=== PATIENT | female | born 1965 | race Caucasian/White ===

== ENCOUNTER → 2020-07-18 16:37 | Outpatient (BNVA) | payer MEDICARE, MEDICAID, SELFPAY | PROVIDERS: Family Provider Physician Assistant; PCP Physician Assistant; Visit Provider Nurse Practitioner Family | DX: M25.569 Pain in unspecified knee (principal) | CPT/HCPCS: 73562 ==

== ENCOUNTER 2020-08-03 09:30 | Outpatient (CLI) | payer MEDICARE, MEDICAID, SELFPAY ==
[2020-08-03 09:56] LABS: Basophils # 0.1 10^3/uL (0.0-0.1); Basophils % 1.7 %; Eosinophils # 0.2 10^3/uL (0.0-0.8); Eosinophils % 3.3 %; Hematocrit 45.2 % (37.0-47.0); Lymphocytes % 33.5 %; Mean Corpuscular HGB Conc 33.2 g/dL (30.0-36.0); Mean Corpuscular Hemoglobin 31.9 pg (28.0-34.0); Mean Corpuscular Volume 96.2 fL (81-99); Mean Platelet Volume 10.2 fL (7.4-10.4); Monocytes # 0.5 10^3/uL (0.2-0.9); Monocytes % 7.9 %; Neutrophils # 3.23 10^3/uL (1.8-7.7); Neutrophils % 53.3 %; Nucleated Red Blood Cells % 0 %; Platelet Count 255 10^3/cmm (130-400); Red Cell Distribution Width 12.7 % (12.1-15.1); White Blood Count 6.1 10^3/uL (4.0-10.0)
--- NOTE | 2020-08-03 10:07 | ECG_ITS ---
[facility] Test Date: 2020-08-03 Pat Name: Nano Olea Department: Room: Gender: Female Commercial Account Executive: BRAULIO REYESB: 1965 Requested By: Tal Herrmann Order Number: [id number] Mario MD: Laquita Perez M.D. Measurements Intervals [place] Rate: 57 P: 84 WV: 168 QRS: 19 QRSD: 94 T: 54 QT: 437 QTc: 427 Interpretive Statements SINUS BRADYCARDIA WITH SINUS ARRHYTHMIA POSSIBLE RIGHT VENTRICULAR CONDUCTION DELAY [RSR (QR) IN V1/V2] Diffuse nonspecific ST-T changes NONSPECIFIC T-WAVE ABNORMALITY No previous ECG available for comparison Electronically Signed On 08-03-2020 20:16:10 BODY BUMPER by Laquita Perez M.D. [email or web address]
[2020-08-03 10:12] LABS: Anion Gap 14.1 (5-19); Blood Urea Nitrogen 13 mg/dL (6-20); Calcium 9.7 mg/dL (8.5-10.5); Carbon Dioxide 25 mmol/L (22-29); Chloride 105 mmol/L (98-107); Glomerular Filtration Rate 74.7 mL/min (90-130); Glucose 144 mg/dL (65-115); Osmolality Calculated 293 mOsm/kg (285-295); Potassium 4.1 mmol/L (3.5-5.1); Sodium 140 mmol/L (136-145)
== END 2020-08-03 09:31 | disposition home or self-care (01) ==
LOC: LAB 09:38
PROVIDERS: PCP Physician Assistant; Visit Provider Specialist
DX: H90.6 Mixed conductive and sensorineural hearing loss, bilateral (principal)
CPT/HCPCS: 36415; 80048; 85025; 93005

== ENCOUNTER → 2020-08-13 11:53 | Outpatient (BNVA) | payer MEDICARE, MEDICAID, SELFPAY | PROVIDERS: PCP Physician Assistant; Visit Provider Specialist | DX: Z20.828 Contact with and (suspected) exposure to other viral communicable diseases (principal); Z11.59 Encounter for screening for other viral diseases | CPT/HCPCS: 87635 ==

== ENCOUNTER 2020-08-17 05:53 | Day surgery (SDC) | payer MEDICARE, MEDICAID, SELFPAY ==
[2020-08-16 14:01] VITALS: BMI 20.5
[2020-08-17] VITALS (7 sets, daily range): BP systolic 126–164; BP diastolic 54–86; PULSE 42–98; RESP 12–18; TEMP 36.1–36.6; O2SAT 93–100
[2020-08-17] MEDS: sodium chloride 0.9% 1,000 ML 30 ML IV (06:39)
--- NOTE | 2020-08-17 06:42 | ANES.PREANE2 ---
Pre-Anesthetic Assessment Pre-Anesthetic Assessment: Height/Weight: Height 1.63 m Weight 54.431 kg Temp Pulse Resp BP Pulse Ox 97.0 F L 42 L 18 138/54 98 08/17/20 06:17 08/17/20 06:17 08/17/20 06:17 08/17/20 06:17 08/17/20 06:17 Preop Diagnosis: hearing impairment Proposed Procedure: Operation Date: 08/17/20 07:00 Proposed Procedures p Baha Implants(Left) - Tal Magaña MD Familial anesthetic complications: None Was Beta Chapo taken within 24 hours: N/A Last intake: Intake Last Liquid Date 08/16/20 Last Liquid Time 20:30 Last Solid Date 08/16/20 Last Solid Time 21:30 Social: Social History: No alcohol and No tobacco Exam: Pre-Anes Outpt Exam: alert, oriented x 3, clear to auscultation bilaterally and regular rate & rhythm Airway: Cervical ROM: WNL MP: 2 Dentition: Full Pulmonary: Pulmonary: Asthma and COPD Comments: hx bronchitis CV/HEM: CV/HEM: HTN Comments: bradycardia Metabolic: Metabolic: Thyroid Anesthetic Plan: ASA status: 2 Anesthesia: General Risk of > 500 ml blood loss (7ml/kg in children): No Meds/Allergies Current Medications: Current Medications Generic Name Dose Route Start Last Admin Trade Name Freq PRN Reason Stop Dose Admin Sodium Chloride 1,000 mls @ 30 ml s/hr 08/17/20 06:15 08/17/20 06:39 Sodium Chloride 0.9% IV 08/18/20 06:14 30 mls/hr .Q24H JOHNNY Administration PFSH Anesthesia PFSH: Social History (Updated 07/18/20 @ 16:31 by Cindi Marte LPN) Smoking and tobacco status: current every day smoker Data Anesthesia Cardiac Studies: No Data to Display
--- NOTE | 2020-08-17 06:53 | W.PM.OPSUD ---
Surgery/Procedure H&P Update DATE OF PROCEDURE: August 17, 2020 DATE H&P PERFORMED: 07/30/20 H&P UPDATE INFORMATION: I have reviewed H&P completed within last 30 days, I have examined patient prior to procedure, No changes to prior documentation and H&P to be scanned into chart PREOP DIAGNOSIS: Mixed hearing loss, left ear PRIMARY INDICATION FOR PROCEDURE: Mixed hearing loss, left ear PLANNED PROCEDURE: Operation Date: 08/17/20 07:00 Proposed Procedures p Baha Implants(Left) - Tal Magaña MD
[2020-08-17] MEDS: clindamycin 600 MG/50 ML PREMIX 100 MG IV (07:05)
[2020-08-17] MEDS: neomycin-poly-bacitracin oint 28 gm 1 APPLIC TOPICAL (08:00)
--- NOTE | 2020-08-17 08:21 | PM.OP ---
Operative Report Date of procedure: August 17, 2020 Pre-op Diagnosis: Mixed hearing loss, left ear Post-op diagnosis: same Post-op Findings: Well healed post surgical changes of the left ear Procedure Done: Left Bone Anchored Hearing Aid Placement Implants: Left Bone Anchored Hearing Aid implant Specimens removed/disposition: None Pathology: none sent Surgeon: Tal Magaña Beam Dyer Operator: Nic Natarajan Anesthesia: General Estimated blood loss (mL): 5 IV fluids (mL): 500 Complications: None Findings: Well healed post surgical changes of the left ear Condition: stable Disposition: PACU Brief History: 54 yo wf with a h/o severe mixed hearing loss of the left ear who desires surgical therapy. Procedure: The patient was identified in the preoperative holding area and was taken to the operating room where she was placed on the operating table in the supine position. Anesthesia was obtained with general endotracheal anesthesia and the table was then turned 90 degrees to the patient's left. The patient was then prepped and draped in the usual sterile fashion. The implant site was marked out approximately 50 mm posterior to the left external auditory canal with a marking pen and surgical indicator. The skin depth was measured to be approximately 4-1/2 mm, so a 9 mm implant was selected. At this point the implant site was injected with local anesthesia and 10 minutes were allowed to pass. The punch biopsy tool was used to remove a circular piece of skin down to the mastoid cortex. Using the surgical microscope and the raspatorium, the periosteum was removed from the bone. Using the airplane pilot chief drill, a 3 mm hole was made into the mastoid cortex and this was then enlarged with a 3 mm widening drill. At this point the implant was placed with the drill placed on 40 N centimeters, and the implant was cinched down with a wrench. Once this was accomplished, the wound was covered with triple antibiotic ointment and a sterile dressing. The procedure was then terminated and control of the patient was returned to anesthesia where she underwent an uneventful reversal of anesthesia and extubation and was taken to the recovery room in stable condition. There were no operative or anesthetic complications.
--- NOTE | 2020-08-17 14:26 | ANE.PACU2 ---
Inpatient post-anesthesia follow up: Airway intact: Yes Vital signs: Temperature 97.4 F Pulse Rate 67 Respiratory Rate 18 Blood Pressure 126/72 Pulse Oximetry 93 Oxygen Delivery Me thod Room Air Oxygen Flow Rate Fraction of Inspir ed Oxygen Hydration adequate: Yes Nausea and vomiting: No Pain level: 3 Mental status: Baseline
== END 2020-08-17 09:27 | disposition home or self-care (01) ==
PROVIDERS: PCP Physician Assistant; Visit Provider Specialist
PROC: (CPT 69710; principal; 2020-08-17 07:00)
DX: H90.72 Mixed conductive and sensorineural hearing loss, unilateral, left ear, with unrestricted hearing on the contralateral side (principal); I10 Essential (primary) hypertension; J44.9 Chronic obstructive pulmonary disease, unspecified; F17.200 Nicotine dependence, unspecified, uncomplicated
CPT/HCPCS: 69710; 12345; J2405; J2704; J2710; J3010; J3490; J7030

== ENCOUNTER 2021-02-17 10:33 | Outpatient (CLI) | payer MEDICARE, MEDICAID, SELFPAY ==
--- NOTE | 2021-02-17 10:39 | MM_ITS ---
WS: [id number] BILATERAL DIGITAL SCREENING MAMMOGRAPHY WITH CAD CLINICAL INFORMATION: SCREENING HISTORY: Screening mammogram. No current complaints. COMPARISON: April 07, 2019 TECHNIQUE: Bilateral CC and MLO views. FINDINGS: The breasts are composed of heterogeneous fibroglandular density tissue, which can limit the detectio n of small underlying mass lesions. Punctate and dystrophic calcifications. No suspicious mass, asymm etry, calcifications, or architectural distortion. No evidence of malignancy. MM/[place] [id number] IMPRESSION: BI-RADS: 2-Benign FOLLOW UP: 1 Year Follow-up Recommend return to annual screening mammography.
== END 2021-02-17 10:34 | disposition home or self-care (01) ==
LOC: RADSHAW 10:38
PROVIDERS: PCP Physician Assistant; Visit Provider Physician Assistant
DX: Z12.31 Encounter for screening mammogram for malignant neoplasm of breast (principal)
CPT/HCPCS: 77067

== ENCOUNTER 2021-07-11 13:29 | Outpatient (CLI) | payer MEDICARE, MEDICAID, SELFPAY ==
--- NOTE | 2021-07-11 13:54 | CT_ITS ---
WS: [id number] LDCT LUNG CANCER SCREENING HISTORY: NICOTINE DEPENDENCE, CIGARETTES TECHNIQUE: Axial imaging performed from the apices to 1 cm below the costophrenic angles. Coronal and sagittal reformats are submitted with axial MIP series. All CT scans at [facility] use at least one of these dose optimization techniques: automated exposure control; mA and/or kV adjustment per patient size (includes targeted exams where dose is matched to clinical indication); or iterativ e reconstruction. DLP: 55.77 mGy.cm DIvol: 1.58 mGy COMPARISON: None available. Diagnostic quality: Satisfactory Lung Nodules: No nodule or mass or endobronchial lesions. Lungs: Multifocal prominent pulmonary reticulations along the anterior upper lobes bilaterally but gr eatest on the RIGHT. There is an additional very minimal area of groundglass attenuation in the poste rior LEFT lower lobe. Heart: Normal size with no pericardial effusion. Other findings: Small mediastinal and hilar lymph nodes. Small hiatal hernia. Thoracolumbar scoliosis . CT/CT lung screening [id number] IMPRESSION: LUNG-RADS: 1-Negative FOLLOW UP: 12 Month: Continue annual screening with LDCT OTHER FINDINGS (S MODIFIER): None.
== END 2021-07-11 13:30 | disposition home or self-care (01) ==
LOC: RAD 13:36
PROVIDERS: PCP Physician Assistant; Visit Provider Physician Assistant
DX: Z12.2 Encounter for screening for malignant neoplasm of respiratory organs (principal); F17.210 Nicotine dependence, cigarettes, uncomplicated
CPT/HCPCS: 71271

== ENCOUNTER → 2021-07-26 10:57 | Outpatient (BNVA) | payer MEDICARE, MEDICAID, SELFPAY | PROVIDERS: PCP Physician Assistant; Referring Provider Physician Assistant; Visit Provider Orthopaedic Surgery | DX: M25.521 Pain in right elbow (principal) | CPT/HCPCS: 73080 ==

== ENCOUNTER 2022-05-02 03:13 | Emergency (ER) | payer MEDICARE, MEDICAID, SELFPAY ==
[2022-05-02 03:14] VITALS: BMI 18.8
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
[2022-05-02 03:29] VITALS: RESP 22
[2022-05-02 03:29] LABS: Basophils # 0.1 10^3/uL (0.0-0.1); Basophils % 1.1 %; Eosinophils # 0.1 10^3/uL (0.0-0.8); Eosinophils % 1.2 %; Hematocrit 47.5 % (37.0-47.0); Hemoglobin 16.3 g/dL (11.5-15.3); Lymphocytes # 2.7 10^3/uL (0.8-4.8); Lymphocytes % 23.5 %; Mean Corpuscular HGB Conc 34.3 g/dL (30.0-36.0); Mean Corpuscular Hemoglobin 33.1 pg (28.0-34.0); Mean Corpuscular Volume 96.3 fl (81-99); Mean Platelet Volume 10.5 fL (7.4-10.4); Monocytes # 0.9 10^3/uL (0.2-0.9); Monocytes % 7.8 %; Neutrophils # 7.45 10^3/uL (1.8-7.7); Neutrophils % 66.1 %; Nucleated Red Blood Cells % 0 %; Platelet Count 206 10^3/cmm (130-400); Red Blood Count 4.93 10^6/uL (4.1-5.3); Red Cell Distribution Width 12.8 % (12.1-15.1); White Blood Count 11.3 10^3/uL (4.0-10.0)
[2022-05-02] MEDS: ondansetron 2 mg/ML SDV 2 mL 4 MG IVP (03:29)
[2022-05-02] MEDS: morphine 4 mg/mL SDV 1 mL IVP (03:29)
[2022-05-02 03:49] VITALS: BP 119/78; PULSE 75; RESP 22; O2SAT 94
[2022-05-02 03:52] LABS: Alanine Aminotransferase 12 U/L (0-33); Albumin Level 4.2 g/dL (3.5-5.2); Alcohol Level 185 mg/dL (0-10); Alkaline Phosphatase 82 IU/L (35-105); Anion Gap 18.1 (5-19); Aspartate Amino Transferase 22 U/L (0-32); Blood Urea Nitrogen 5 mg/dL (6-20); Calcium 9.4 mg/dL (8.5-10.5); Carbon Dioxide 25 mmol/L (22-29); Chloride 96 mmol/L (98-107); Globulin 2.5 g/dL (1.3-4.6); Glomerular Filtration Rate 86.6 mL/min (90-130); Glucose 165 mg/dL (65-115); Osmolality Calculated 283 mOsm/kg (285-295); Potassium 3.1 mmol/L (3.5-5.1); Sodium 136 mmol/L (136-145); Total Bilirubin 0.4 mg/dL (0.15-1.2); Total Protein 6.7 g/dL (6.6-8.7)
--- NOTE | 2022-05-02 04:24 | PC.NURSE ---
Wound to right elbow irrigated. Covered with Saline moistened gauze, wrapped in gauze dressing, then covered with coban. Pt tolerated well.
--- NOTE | 2022-05-02 04:30 | PC.NURSE ---
Contacted family member, Shon Kitchen, per pt request. He is on his way.
[2022-05-02 04:32] VITALS: BP 126/86; PULSE 65; RESP 20; O2SAT 98
--- NOTE | 2022-05-02 04:34 | PC.NURSE ---
Pt has hearing aide attached to left side of shirt. Placed hearing aid in a bag, while still attached to shirt, per patient request.
--- NOTE | 2022-05-02 04:38 | PC.NURSE ---
at bedside. 1 staple placed to right elbow. Wound redressed with gauze roll and coban.
== END 2022-05-02 05:01 | disposition home or self-care (01) ==
PROVIDERS: Emergency Provider Emergency Medicine; PCP Physician Assistant
DX: S09.8XXA Other specified injuries of head, initial encounter (principal); S51.011A Laceration without foreign body of right elbow, initial encounter; Y04.2XXA Assault by strike against or bumped into by another person, initial encounter
CPT/HCPCS: 12001; 70450; 70486; 71045; 72125; 73080; 80053; 80307; 85025; 96374; 96375; 99285; J2270; J2405

== ENCOUNTER 2022-07-21 14:32 | Outpatient (CLI) | payer MEDICARE, MEDICAID, SELFPAY ==
--- NOTE | 2022-07-21 14:41 | MM_ITS ---
WS: [id number] BILATERAL SCREENING DIGITAL TOMOSYNTHESIS MAMMOGRAM WITH CAD HISTORY: SCREENING COMPARISON: 04/07/2019, 10/23/2017, 02/17/2021 Bilateral CC and MLO views with tomosynthesis and synthetic mammography submitted. Computer aided det ection analyzed. Breast composition: The breasts are heterogeneously dense, which may obscure small masses. No suspici ous masses, microcalcifications or architectural distortion. Bilateral partially obscured asymmetries have remained stable over multiple years. There are also benign calcifications in each breast. MM/[place] [id number] IMPRESSION: BI-RADS: 2-Benign FOLLOW UP: 1 Year Follow-up
== END 2022-07-21 14:33 | disposition home or self-care (01) ==
LOC: RAD 14:33
PROVIDERS: PCP Physician Assistant; Visit Provider Physician Assistant
DX: Z12.31 Encounter for screening mammogram for malignant neoplasm of breast (principal)
CPT/HCPCS: 77063; 77067

== ENCOUNTER 2022-10-10 13:13 | Outpatient (CLI) | payer MEDICARE, MEDICAID, SELFPAY ==
--- NOTE | 2022-10-10 13:25 | CT_ITS ---
WS: [id number] LDCT LUNG CANCER SCREENING HISTORY: HX OF TOBACCO USE TECHNIQUE: Axial imaging performed from the apices to 1 cm below the costophrenic angles. Coronal and sagittal reformats are submitted with axial MIP series. All CT scans at [facility] use at least one of these dose optimization techniques: automated exposure control; mA and/or kV adjustment per patient size (includes targeted exams where dose is matched to clinical indication); or iterativ e reconstruction. DLP: 85.07 mGy.cm DIvol: Mean CTDIvol: 1.60 (mGy) COMPARISON: 07/11/2021 Diagnostic quality: Satisfactory Lung Nodules: No pulmonary nodules or endobronchial lesions. Lungs: Hyperexpanded lungs with changes of paraseptal and centrilobular emphysema. There is very mild interstitial thickening along the anterior lungs. Heart: Normal size heart. No pericardial effusion. Scattered coronary artery calcifications. Other findings: Mild atherosclerosis aorta. Pulmonary artery is enlarged. Small hiatal hernia. Mild b ilateral adrenal hyperplasia. Thoracic curvature. CT/CT lung screening [id number] IMPRESSION: LUNG-RADS: 1-Negative FOLLOW UP: 12 Month: Continue annual screening with LDCT OTHER FINDINGS (S MODIFIER): None.
== END 2022-10-10 13:14 | disposition home or self-care (01) ==
LOC: RAD 13:13
PROVIDERS: PCP Physician Assistant; Visit Provider Physician Assistant
DX: Z12.2 Encounter for screening for malignant neoplasm of respiratory organs (principal); Z87.891 Personal history of nicotine dependence
CPT/HCPCS: 71271

== ENCOUNTER → 2023-06-14 10:00 | Outpatient (BNVA) | payer MEDICARE, MEDICAID, SELFPAY | PROVIDERS: PCP Physician Assistant; Visit Provider Podiatrist Foot & Ankle Surgery | DX: M19.072 Primary osteoarthritis, left ankle and foot; M19.071 Primary osteoarthritis, right ankle and foot; M20.41 Other hammer toe(s) (acquired), right foot; M20.42 Other hammer toe(s) (acquired), left foot; B35.1 Tinea unguium | CPT/HCPCS: 73630; 99203 ==

== ENCOUNTER → 2023-08-31 09:46 | Outpatient (BNVA) | payer MEDICARE, MEDICAID, SELFPAY | PROVIDERS: PCP Physician Assistant; Visit Provider Student in an Organized Health Care Education/Training Program | DX: M65.332 Trigger finger, left middle finger (principal) | CPT/HCPCS: 99204 ==

== ENCOUNTER 2023-10-10 07:26 | Day surgery (SDC) | payer MEDICARE, MEDICAID, SELFPAY ==
[2023-10-10] VITALS (8 sets, daily range): BP systolic 114–148; BP diastolic 66–85; PULSE 61–80; RESP 15–18; TEMP 36.1–36.6; O2SAT 94–97; BMI 20.5
[2023-10-10] MEDS: acetaminophen 1,000 MG/100 ML PIGGYBACK 400 MG IV (07:56)
[2023-10-10] MEDS: scopolamine 1.5 Patch 1 PATCH TRANSDERMA (07:56)
[2023-10-10] MEDS: ketorolac 30 mg/mL INJ IVP (07:56)
[2023-10-10] MEDS: sodium chloride 0.9% 1,000 ML 30 ML IV (08:00)
--- NOTE | 2023-10-10 08:15 | P.ANESASSM_ITS ---
Pre-Anesthetic Assessment Height/Weight: Height 1.63 m Weight 54.431 kg Temp Pulse Resp BP Pulse Ox 97.4 F L 61 18 148/85 97 10/10/23 08:02 10/10/23 08:02 10/10/23 08:02 10/10/23 08:02 10/10/23 08:02 Operation Date: 10/10/23 09:00 Proposed Procedures p Left Middle Trigger Finger Release(Left) - Adan Gaston, DO Was Beta Chapo taken within 24 hours: N/A Was Clonidine taken within 24 hours: N/A Social Tobacco 1 pack(s) per day Smoked today Exam alert and oriented x 3 Airway Mallampati: Class II Dentition: false History/ROS No significant history except as noted and No significant complaints Pulmonary Chronic Obstructive Pulmonary Disease CV/HEM Hypertension GI Gastroesophageal Reflux Disease Metabolic Thyroid Disease Neuropsych Depression 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 100 mcg-umeclid See Rx Instructions .Route .COMPLEX 08/16/20 10/09/23 10/08/23 History 62.5 mcg-vilant 25 mcg inhalat.powder (Trelegy Ellipta) montelukast 10 mg tablet 10 mg PO DAILY 08/16/20 10/09/23 10/09/23 History cyclobenzaprine 10 mg tablet 10 mg PO TID 07/26/21 10/10/23 10/09/23 History diclofenac sodium 75 mg 75 mg PO BID 07/26/21 10/10/23 10/09/23 History tablet,delayed release escitalopram oxalate 10 mg tablet 10 mg PO DAILY 07/26/21 10/09/23 10/09/23 History (Lexapro) omeprazole 40 mg capsule,delayed 40 mg PO DAILY 07/26/21 10/09/23 10/09/23 History release oxybutynin chloride 5 mg 5 mg PO 1XD 10/09/23 10/09/23 10/09/23 History tablet,extended release 24 hr Allergies Allergy/AdvReac Type Severity Reaction Status Date / Time clarithromycin [From Biaxin] Allergy RASH Verified 10/10/23 07:40 clonazepam [From Klonopin] Allergy RASH Verified 10/10/23 07:40 Penicillins Allergy RASH Verified 10/10/23 07:40 [facility] Anesthesia Medical History Radioulnar synostosis Social History Smoking and tobacco/nicotine status: never used tobacco/nicotine Data Anesthesia 10/10/23 07:53 Cardiac Studies: 2 No Data to Display
[2023-10-10 08:23] LABS: Anion Gap 15.2 (5-19); Blood Urea Nitrogen 7 mg/dL (6-20); Calcium 10.3 mg/dL (8.5-10.5); Carbon Dioxide 26 mmol/L (22-29); Chloride 100 mmol/L (98-107); Glomerular Filtration Rate 64.5 mL/min (90-130); Glucose 161 mg/dL (65-115); Osmolality Calculated 287 mOsm/kg (285-295); Potassium 3.2 mmol/L (3.5-5.1); Sodium 138 mmol/L (136-145)
--- NOTE | 2023-10-10 10:30 | W.PM.OPSFHP ---
Same Day Surgery H&P Indication for Procedure/HPI DATE OF PROCEDURE: October 10, 2023 CHIEF COMPLAINT/INDICATIONFOR SURGICAL PROCEDURE: Left middle finger trigger PREOP DIAGNOSIS: Left middle finger trigger PLANNED PROCEDURE: Operation Date: 10/10/23 09:00 Proposed Procedures p Left Middle Trigger Finger Release(Left) - Adan Feldman DO Medications/Allergies* Home Medications Medication Instructions Recorded Confirmed Type levothyroxine 25 mcg capsule 25 mcg PO DAILY 07/18/20 10/09/23 History lisinopril 30 mg tablet 30 mg PO DAILY 07/18/20 10/09/23 History fluticasone fur. 100 mcg-umeclid See Rx Instructions .Route .COMPLEX 08/16/20 10/09/23 History 62.5 mcg-vilant 25 mcg inhalat.powder (Trelegy Ellipta) montelukast 10 mg tablet 10 mg PO DAILY 08/16/20 10/09/23 History cyclobenzaprine 10 mg tablet 10 mg PO TID 07/26/21 10/10/23 History diclofenac sodium 75 mg 75 mg PO BID 07/26/21 10/10/23 History tablet,delayed release escitalopram oxalate 10 mg tablet 10 mg PO DAILY 07/26/21 10/09/23 History (Lexapro) omeprazole 40 mg capsule,delayed 40 mg PO DAILY 07/26/21 10/09/23 History release oxybutynin chloride 5 mg 5 mg PO 1XD 10/09/23 10/09/23 History tablet,extended release 24 hr Allergies/Adverse Reactions Allergy/AdvReac Type Severity Reaction Status Date / Time clarithromycin [From Biaxin] Allergy RASH Verified 10/10/23 07:40 clonazepam [From Klonopin] Allergy RASH Verified 10/10/23 07:40 Penicillins Allergy RASH Verified 10/10/23 07:40 Pertinent History/Comorbid Conditions* Medical History (Updated 09/20/23 @ 14:04 by Adan Feldman DO) Radioulnar synostosis Social History Smoking and tobacco/nicotine status: never used tobacco/nicotine Pertinent Exam Findings alert, oriented x 3, operative site marked and procedure specific exam findings left hand There is full range of motion of the wrist with full flexion, extension, supination and pronation. There is full range of motion of the MCPs 0-110 and PIP joints 0-110 as well. The flexor digitorum profundus and sublimis are intact to each digit. A negative median nerve compression test, and negative Finklestein's test are demonstrated. There is tenderness directly over the A1 corey of the left middle finger. There is palpable swelling and nodule noted with flexion and extension of the digit over the A1 corey. Mechanical triggering and locking down noted this to be mechanically unlock. There is no thenar atrophy and no webspace contracture. Recommendations Surgery/Procedure today Other Plans: Plan to proceed with a left middle finger trigger release Coding Level of Care Code Acute Code for Chg Fwd
[2023-10-10] MEDS: ceFAZolin 2,000 MG in sodium chloride 0.9% (plus) 50 ML 100 MG IV (10:45)
[2023-10-10] MEDS: ROPivacaine 0.5% SDV 30 mL 25 MG INJECTION (11:10)
[2023-10-10] MEDS: BUPivacaine 0.5% INJ 30 mL 5 ML INJECTION (11:10)
--- NOTE | 2023-10-10 11:14 | P.BOP_ITS ---
Date of Procedure: 10/10/2023 Surgeon: Adan Feldman DO Trail Construction Worker(s): [Shilo Feldman PA-C] Procedure(s) performed: [Left middle finger trigger release] Findings of the procedure(s): [Patient found to have left middle finger trigger underwent release without any complications or issues procedure went as planned.] Estimated blood loss: 1 mL Specimen(s) removed: None Post-operative diagnosis: Left middle finger trigger
--- NOTE | 2023-10-10 11:17 | PM.OP ---
Operative Report Date of procedure: October 10, 2023 Surgeon: Adan Feldman DO [facility] Director: Shilo Feldman PA-C: PA was necessary for assistance in this case with hand positioning to execute the procedure, retraction and protection of neurovascular structures as well as to assist with wound closure and dressing application. Procedure: Preoperative diagnosis: Left middle finger trigger post-op diagnosis: Same Procedure done: left?middle?finger?trigger?release Surgeon: Adan Feldman DO Estimated blood loss: 1cc Tourniquet time 6mins Complications: None Condition: stable Disposition: same day Brief History: Patient's been seen and worked up in the outpatient setting and findings consistent with preoperative diagnosis of left?middle?finger?trigger.? Patient has tried conservative treatment, continues to have mechanical locking and catching.? Severe pain as well.? We talked about treatment options nonoperative versus operative intervention.? ?Patient understands the risk benefits complication alternatives of surgical nonsurgical treatment options.? Understanding his risks with surgery he elects proceed with surgical intervention.? Consent obtained in the office.? Here today to proceed with surgical intervention.? All questions answered. Procedure: Patient was seen and evaluated in the preoperative holding area.? Consent was reviewed and signed with patient.? Seen evaluated by Anesthesia Department.? Once cleared for surgery was brought back to the operative suite.? Placed in supine position on the OR table all bony prominences well-padded patient properly secured to the bed.? Patient's left arm was then placed to the armboard.? A nonsterile tourniquet applied to the left upper arm.? Patient's left upper extremity was then prepped and draped in standard orthopedic fashion.? Final timeout performed.? Patient received appropriate preoperative antibiotics. Esmarch tourniquet was used exsanguinate the left upper extremity tourniquet insufflated to 250 mmHg. Under sterile aseptic technique local digital block was performed to the left?middle?finger.? Once appropriately anesthetized a standard oblique incision was made centering over the A1 corey following patient's flexor crease.? Sharp scalpel incision was made only through skin and then switched to Littler dissection scissors and spread longitudinally directly over the flexor tendon sheath.? I then mobilized both radially and ulnarly and Kasdan retractors were used and placed by my inventory assistant to protect neurovascular bundle.? Next I visualized the A1 corey and this was incised with a scalpel.? I then switched to dissection scissors and released the A1 corey both proximally as well as distally to its entirety.? Significant tendon sheath fluid was noted consistent with inflammation.? Mild fraying of the flexor tendons noted but no tear.? At this point I utilized a rag nail and pulled the tendons FDS and FDP out of the incision and no?triggering was noted.? I then had anesthesia wake up the patient and patient was able to actively flex and extend with no?triggering.? This point thorough irrigation was performed.? Tourniquet deflated hemostasis satisfactory with bipolar.? I then subsequently closed the incision with interrupted nylon suture.? Xeroform 4 x 4's, Kerlix and an Tommie wrap was applied for a bulky soft dressing.? Patient was then subsequently awakened from anesthesia and taken to PACU in stable condition tolerated procedure without issues. Disposition: Patient taken back in stable condition recovering well.? Patient will receive appropriate discharge instruction as well as pain medication postoperatively.? Patient to follow-up with me in the office in 2 weeks for repeat evaluation and incision check.? Patient understands that any questions or concerns and contact the office.? All questions answered.
--- NOTE | 2023-10-10 11:23 | PM.PACU ---
PACU note Narrative: Patient is a 57-year-old female just underwent a left middle trigger finger release. Patient transferred to PACU in stable condition. Pain is well controlled. Dressing on hand is dry and in place. Patient's fingers are warm and well-perfused. Patient can wiggle fingers. normal cap refill under 2 seconds. Patient has normal elbow range of motion. Unable to assess sensation due to residual localized anesthetic. Exam: awake Disposition: discharged
--- NOTE | 2023-10-11 07:23 | ANE.PACU2 ---
Inpatient post-anesthesia follow up: Airway intact: Yes Vital signs: Temperature 97.0 F Pulse Rate 69 Respiratory Rate 18 Blood Pressure 114/72 Pulse Oximetry 95 Oxygen Delivery Me thod Room Air Oxygen Flow Rate Fraction of Inspir ed Oxygen Hydration adequate: Yes Nausea and vomiting: No Pain level: 2 Mental status: Baseline
== END 2023-10-10 12:20 | disposition home or self-care (01) ==
PROVIDERS: Anesthesiology; PCP Physician Assistant; Visit Provider Student in an Organized Health Care Education/Training Program
PROC: (CPT 26055; principal; 2023-10-10 09:00)
DX: M65.332 Trigger finger, left middle finger (principal); J44.9 Chronic obstructive pulmonary disease, unspecified; I10 Essential (primary) hypertension; K21.9 Gastro-esophageal reflux disease without esophagitis; F32.A Depression, unspecified
CPT/HCPCS: 26055; 36415; 80048; J0131; J0690; J1885; J2250; J2704; J2795; J3010; J3490; J7030

== ENCOUNTER → 2023-10-23 12:50 | Outpatient (BNVA) | payer MEDICARE, MEDICAID, SELFPAY | PROVIDERS: PCP Physician Assistant; Visit Provider Physician Assistant | DX: Z98.890 Other specified postprocedural states (principal) | CPT/HCPCS: 99024 ==

== ENCOUNTER → 2023-12-27 09:51 | Outpatient (BNVA) | payer MEDICARE, MEDICAID, SELFPAY | PROVIDERS: PCP Physician Assistant; Visit Provider Otolaryngology | DX: H65.493 Other chronic nonsuppurative otitis media, bilateral (principal); H74.8X1 Other specified disorders of right middle ear and mastoid; H69.93 Unspecified Eustachian tube disorder, bilateral; H90.0 Conductive hearing loss, bilateral | CPT/HCPCS: 99204 ==

== ENCOUNTER → 2024-01-01 10:04 | Outpatient (BNVA) | payer MEDICARE, MEDICAID, SELFPAY | PROVIDERS: PCP Physician Assistant; Referring Provider Physician Assistant; Visit Provider Internal Medicine | DX: R00.1 Bradycardia, unspecified (principal) | CPT/HCPCS: 93225 ==

== ENCOUNTER → 2024-01-24 09:26 | Outpatient (BNVA) | payer MEDICARE, MEDICAID, SELFPAY | PROVIDERS: PCP Physician Assistant; Visit Provider Otolaryngology | DX: H66.93 Otitis media, unspecified, bilateral (principal); H90.6 Mixed conductive and sensorineural hearing loss, bilateral; H69.93 Unspecified Eustachian tube disorder, bilateral; H74.8X3 Other specified disorders of middle ear and mastoid, bilateral | CPT/HCPCS: 99213; 99214 ==

== ENCOUNTER 2024-03-22 13:47 | Inpatient (IN) | payer MEDICARE, MEDICAID, SELFPAY ==
[2024-03-22] VITALS (37 sets, daily range): BP systolic 86–171; BP diastolic 55–97; PULSE 42–88; RESP 10–29; TEMP 36.5–37.2; O2SAT 90–100
--- NOTE | 2024-03-22 13:57 | ECG_ITS ---
[facility] Test Date: 2024-03-22 Pat Name: Nano Olea Department: Room: Gender: Female Sas Programmer Remote: : 1965 Requested By: King Nunn Order Number: [id number] Mario MD: Norris Archuleta M.D. Measurements Intervals [place] Rate: 47 P: 81 MA: 163 QRS: 56 QRSD: 100 T: 256 QT: 477 QTc: 423 Interpretive Statements SINUS BRADYCARDIA POSSIBLE RIGHT VENTRICULAR CONDUCTION DELAY [RSR (QR) IN V1/V2] ST DEVIATION AND MODERATE T-WAVE ABNORMALITY, CONSIDER ANTEROLATERAL ISCHEMIA [-0.1+ mV T-WAVE IN V3-V6] ST DEVIATION AND MODERATE T-WAVE ABNORMALITY, CONSIDER INFERIOR ISCHEMIA [-0.1+ mV T-WAVE IN II/aVF] INTERPRETATION BASED ON A DEFAULT AGE OF 40 YEARS Compared to ECG 08/03/2020 10:00:12 Possible ischemia now present Sinus arrhythmia no longer present ST (T wave) deviation no longer present T-wave abnormality still present Electronically Signed On 03-23-2024 9:52:40 CDT by Norris Archuleta M.D. [id number] [email or web address]
--- NOTE | 2024-03-22 14:01 | XRR_ITS ---
PROCEDURE INFORMATION: Exam: XR Chest Exam date and time: 03/22/2024 2:12 PM Age: 58 years old Clinical indication: Chest pressure; Patient HX: Arrives via EMS from home- C/O chest pain that woke her up. Associated SOB. Pain was gone on EMS arrival. Given 324mg asa. Iv and lab drawal. Reports nausea/ vomiting- just can't keep anything down. Unsure if she is still taking her prilosec. TECHNIQUE: Imaging protocol: Radiologic exam of the chest. Views: 1 view. COMPARISON: CR XR chest 2V* [id number] 10/31/2023 12:05 PM FINDINGS: Lungs: New small area of atelectasis and/or pneumonitis in the medial right mid lung. Unchanged bilateral bullous emphysema with increased hyperinflation of the lungs. Otherwise, unremarkable. Pleural spaces: Unremarkable. No pleural effusion. No pneumothorax. Heart/Mediastinum: Unremarkable. No cardiomegaly. Bones/joints: Unchanged mild scoliosis and mild spondylosis Otherwise, unremarkable. XR/XR chest 1V portable [id number] IMPRESSION: 1. New small area of pneumonitis and/or atelectasis in the medial right midlung. 2. Unchanged bilateral bullous emphysema with increased hyperinflation of the lungs.
[2024-03-22 14:10] LABS: Basophils # 0.1 10^3/uL (0.0-0.1); Basophils % 1.4 %; Eosinophils # 0.1 10^3/uL (0.0-0.8); Eosinophils % 1.4 %; Hematocrit 48.7 % (36-47); Lymphocytes # 1.3 10^3/uL (0.8-4.8); Lymphocytes % 18.6 %; Mean Corpuscular HGB Conc 34.5 g/dL (30-55); Mean Corpuscular Hemoglobin 32.2 pg (27-33); Mean Corpuscular Volume 93.3 fl (85-98); Mean Platelet Volume 10.5 fL (7.4-10.4); Monocytes % 14.2 %; Neutrophils # 4.42 10^3/uL (1.8-7.7); Neutrophils % 64.1 %; Nucleated Red Blood Cells % 0 %; Platelet Count 253 10^3/cmm (157-399); Red Blood Count 5.22 10^6/uL (3.85-5.65); Red Cell Distribution Width 12.7 % (12.1-15.1)
[2024-03-22 14:19] LABS: INR 0.99 (0.8-1.2)
[2024-03-22 14:23] LABS: Troponin(5th) Baseline 8 ng/L (0-10)
[2024-03-22 14:32] LABS: Alanine Aminotransferase 8 U/L (0-33); Albumin Level 4.1 g/dL (3.5-5.2); Alkaline Phosphatase 99 U/L (35-105); Anion Gap 18.2 (5-19); Aspartate Amino Transferase 16 U/L (0-32); Blood Urea Nitrogen 15 mg/dL (6-20); Calcium 10.1 mg/dL (8.5-10.5); Carbon Dioxide 24 mmol/L (22-29); Chloride 97 mmol/L (98-107); Creatinine Clr Calc Pharmacy 58.7205; Globulin 4.2 g/dL (1.3-4.6); Glomerular Filtration Rate 64.3 mL/min (90-130); Glucose 97 mg/dL (65-115); NT Pro B Type Natriuretic Pept 194 pg/mL (0-125); Osmolality Calculated 283 mOsm/kg (285-295); Potassium 3.2 mmol/L (3.5-5.1); Sodium 136 mmol/L (136-145); Total Bilirubin 0.4 mg/dL (0.15-1.2); Total Protein 8.3 g/dL (6.6-8.7)
[2024-03-22 14:35] LABS: Thyroid Stimulating Hormone 8.52 uIU/mL (0.27-4.20)
[2024-03-22] MEDS: atropine 0.1 mg/mL Syr 10 mL 0.5 MG IVP ×2 (14:48→16:47)
[2024-03-22] MEDS: ondansetron 2 mg/ML SDV 2 mL 4 MG IVP (14:49)
[2024-03-22] MEDS: sodium chloride 0.9% 500 ML 999 ML IV (14:49)
[2024-03-22 14:53] LABS: Procalcitonin 0.08 ng/mL (0-0.5)
--- NOTE | 2024-03-22 16:01 | ECG_ITS ---
[facility] Test Date: 2024-03-22 Pat Name: Nano Olea Department: Room: Gender: Female Induction Coordination Power Engineer: : 1965 Requested By: Danny Kulkarni Order Number: [id number] Mario MD: Norris Archuleta M.D. Measurements Intervals [place] Rate: 60 P: 0 [place]: 0 QRS: 52 QRSD: 102 T: 217 QT: 468 QTc: 470 Interpretive Statements SUPRAVENTRICULAR RHYTHM POSSIBLE RIGHT VENTRICULAR CONDUCTION DELAY [RSR (QR) IN V1/V2] ST DEVIATION AND MODERATE T-WAVE ABNORMALITY, CONSIDER ANTEROLATERAL ISCHEMIA [-0.1+ mV T-WAVE IN V3-V6] ST DEVIATION AND MODERATE T-WAVE ABNORMALITY, CONSIDER INFERIOR ISCHEMIA [-0.1+ mV T-WAVE IN II/aVF] Compared to ECG 03/22/2024 13:51:25 Supraventricular rhythm now present Sinus bradycardia no longer present T-wave abnormality still present Possible ischemia still present Electronically Signed On 03-23-2024 9:57:10 CDT by Norris Archuleta M.D. [id number]
--- NOTE | 2024-03-22 16:31 | ED_ITS ---
HPI - Chest Pain 2 General: Chief Complaint: Chest Pain Stated Complaint: CHEST PAIN Time Seen by Provider: 03/22/24 13:59 History of Present Illness: Patient presents with feeling ill over the past few days. Been having episodes of diaphoresis and nausea. Unable to keep food and drink down per patient. She reports less vomiting and more just producing lots of spit. Patient denies any fevers, but does reports some chest pain. Chest pain is woke her up from sleep today and caused her to come to the hospital. During her visit here she had episode where she started having chest pain and diaphoresis as well which coincided with her heart rate in the 30s. PFSH ED 2 PFSH: Medical History (Updated 03/22/24 @ 19:30 by Norris Archuleta MD) Cochlear implant in place Essential hypertension History of COPD Hx of gastroesophageal reflux (GERD) History of high cholesterol Normal colonoscopy Hypertension Hypothyroidism Depression Tinea corporis Hx of cleft palate Radioulnar synostosis Surgical History (Updated 01/24/24 @ 10:02 by Keshav Gregorio MD) Hx of angioplasty Hx of tonsillectomy Hx of rhinoplasty Hx of mastoidectomy Social History Smoking and tobacco/nicotine status: current every day tobacco/nicotine user cigarettes Packs smoked per day: 1.5 Years cigarettes smoked: 40 Second hand smoke exposure: No Alcohol intake: current Alcohol intake frequency: holidays/special occasions only Alcohol type: beer Course 2 Consultations: Consultation #1: Dr. Archuleta agrees to consult for symptomatic bradycardia Time: 16:55 Consultation #2: Dr. Serna agrees to admission Time: 17:47 Vital Signs: Vital signs: Vital Signs Temperature 97.7 F 03/22/24 13:50 Pulse Rate 55 L 03/22/24 15:35 Respiratory Rate 15 03/22/24 15:35 Blood Pressure 123/89 03/22/24 15:35 Pulse Oximetry 94 03/22/24 15:35 Oxygen Delivery Me thod Room Air 03/22/24 13:50 MDM - Chest Pain Medical Decision Making Patient with reports of not tolerating p.o. this past week as well as spitting up a lot of stuff and coughing. Possibly some more nausea vomiting. Comes in with complaint of chest pain episode woke her from sleep. She been having diaphoresis to the point of soaking sugars. During the course of her workup she had a heart rate dipping to the 30s and she was resting in the 40s. Went into the 30s she became diaphoretic nauseous and complaining of chest pain. CT scan shows some groundglass infiltrate in the right upper lobe/right midlung. Suspect infectious process however procalcitonin is negative. History panel is pending. Given the symptomatic bradycardia patient was given atropine x 2 and is now on dobutamine drip as isoproterenol is not available. Spoke with Dr. Archuleta cardiology as well as Dr. Serna. Patient will be admitted to the ICU. Differential Diagnosis Likely acute myocardial infarction Medical Records I reviewed the patient's medical records. Lab Data I reviewed the patient's lab results. 03/22/24 13:53 03/22/24 13:53 Radiology Impressions Chest X-Ray 03/22/24 14:01 IMPRESSION: 1. New small area of pneumonitis and/or atelectasis in the medial right midlung. 2. Unchanged bilateral bullous emphysema with increased hyperinflation of the lungs. Chest/Abdomen/Pelvis CT 03/22/24 16:32 IMPRESSION: 1. Interval appearance of the localized consolidation contiguous coarsened reticular and ground-glass opacities in the medial right upper lobe most likely representing infectious/inflammatory pathology in absence of other significant medical history. 2. Solitary mildly enlarged right hilar lymph node. IMPRESSION: No acute abdominopelvic pathology. Minor findings noted above including small hiatal hernia with mural thickening distal thoracic esophagus. Laboratory Results WBC 6.90 10^3/uL (3.29-11.43) 03/22/24 13:53 RBC 5.22 10^6/uL (3.85-5.65) 03/22/24 13:53 Hgb 16.80 g/dL (11.27-16.99) 03/22/24 13:53 Hct 48.7 % (36-47) H 03/22/24 13:53 MCV 93.3 fl (85-98) 03/22/24 13:53 MCH 32.2 pg (27-33) 03/22/24 13:53 MCHC 34.5 g/dL (30-55) 03/22/24 13:53 RDW 12.7 % (12.1-15.1) 03/22/24 13:53 Plt Count 253 10^3/cmm (157-399) 03/22/24 13:53 MPV 10.5 fL (7.4-10.4) H 03/22/24 13:53 Neut % (Auto) 64.1 % 03/22/24 13:53 Lymph % (Auto) 18.6 % 03/22/24 13:53 Scurry % (Auto) 14.2 % 03/22/24 13:53 Eos % (Auto) 1.4 % 03/22/24 13:53 Baso % (Auto) 1.4 % 03/22/24 13:53 Neut # (Auto) 4.42 10^3/uL (1.8-7.7) 03/22/24 13:53 Lymph # (Auto) 1.3 10^3/uL (0.8-4.8) 03/22/24 13:53 Scurry # (Auto) 1.0 10^3/uL (0.2-0.9) H 03/22/24 13:53 Eos # (Auto) 0.1 10^3/uL (0.0-0.8) 03/22/24 13:53 Baso # (Auto) 0.1 10^3/uL (0.0-0.1) 03/22/24 13:53 Nucleated RBC % (auto) 0 % 03/22/24 13:53 Nucleated RBCs # 0.0 /100WBC 03/22/24 13:53 PT 13.40 SECONDS (12.1-14.9) 03/22/24 13:53 INR 0.99 (0.8-1.2) 03/22/24 13:53 APTT 40.0 SECONDS (23.9-36.7) H 03/22/24 13:53 Sodium 136 mmol/L (136-145) 03/22/24 13:53 Potassium 3.2 mmol/L (3.5-5.1) L 03/22/24 13:53 Chloride 97 mmol/L (98-107) L 03/22/24 13:53 Carbon Dioxide 24 mmol/L (22-29) 03/22/24 13:53 Anion Gap 18.2 (5-19) 03/22/24 13:53 BUN 15 mg/dL (6-20) 03/22/24 13:53 Creatinine 0.9 mg/dL (0.5-0.9) 03/22/24 13:53 GFR Calculation 64.3 mL/min (90-130) L 03/22/24 13:53 Glucose 97 mg/dL (65-115) 03/22/24 13:53 Calculated Osmolality 283 mOsm/kg (285-295) L 03/22/24 13:53 Calcium 10.1 mg/dL (8.5-10.5) 03/22/24 13:53 Total Bilirubin 0.4 mg/dL (0.15-1.2) 03/22/24 13:53 AST 16 U/L (0-32) 03/22/24 13:53 ALT 8 U/L (0-33) 03/22/24 13:53 Alkaline Phosphatase 99 U/L (35-105) 03/22/24 13:53 Troponin T Baseline 8 ng/L (0-10) 03/22/24 13:53 Troponin T 120 Minute 8.28 ng/L (0-10) 03/22/24 16:13 Delta Troponin T 0.28 ABS# (0-10) 03/22/24 16:13 NT-Pro-B Natriuret Pep 194 pg/mL (0-125) H 03/22/24 13:53 Total Protein 8.3 g/dL (6.6-8.7) 03/22/24 13:53 Albumin 4.1 g/dL (3.5-5.2) 03/22/24 13:53 Globulin 4.2 g/dL (1.3-4.6) 03/22/24 13:53 Procalcitonin 0.08 ng/mL (0-0.5) 03/22/24 13:53 TSH 8.52 uIU/mL (0.27-4.20) H 03/22/24 13:53 All radiology interpretation(s) finalized by discharge ED provider radiology interpretation(s): CT chest abd pelvis just shows right upper lobe pneumonia. Critical Care Time 2 Critical Care Time: Critical Care Time: Yes Total Critical Care Time: 55 Attestation: Code care time includes time at the bedside, placing orders, charting, speaking with multiple other physicians as well as updating patient and coordinating care with nursing staff. Discharge Plan Discharge Patient Disposition: Admitted As Inpatient Admit Provider: Kylie Serna Clinical Impression: Symptomatic bradycardia, Angina pectoris, unstable, Nausea & vomiting, Hypothyroidism Condition: Stable Prescriptions: No Action lisinopril 30 mg tablet 30 mg PO DAILY levothyroxine 25 mcg capsule 25 mcg PO DAILY cyclobenzaprine 10 mg tablet 10 mg PO TID omeprazole 40 mg capsule,delayed release(DR/EC) 40 mg PO DAILY escitalopram oxalate [Lexapro] 10 mg tablet 10 mg PO DAILY diclofenac sodium 75 mg tablet,delayed release (DR/EC) 75 mg PO BID folic acid 1 mg tablet 1 mg PO DAILY Rx Instructions: 1 tab by mouth daily omeprazole 20 mg capsule,delayed release(DR/EC) 20 mg PO DAILY Rx Instructions: 1 capsule by mouth daily Trelegy Ellipta 100-62.5-25 mcg blister with device See Rx Instructions .ROUTE .COMPLEX Rx Instructions: use it as needed montelukast 10 mg tablet 10 mg PO DAILY oxybutynin chloride 5 mg tablet extended release 24hr 5 mg PO 1XD tramadol 50 mg tablet 50 mg PO Q6H PRN (Reason: pain) Qty: 20 0RF Coding Level of Care Code ED Tobacco Feeder Catcher for Umair Mathis
--- NOTE | 2024-03-22 16:32 | CTR_ITS ---
PROCEDURE INFORMATION: Exam: CT Chest With Contrast; Diagnostic Exam date and time: 03/22/2024 4:50 PM Age: 58 years old Clinical indication: Abdominal pain; Generalized; Chest pressure; Additional info: Diaphoresis, n/v, TECHNIQUE: Imaging protocol: Diagnostic computed tomography of the chest with contrast. Radiation optimization: All CT scans at this facility use at least one of these dose optimization techniques: automated exposure control; mA and/or kV adjustment per patient size (includes targeted exams where dose is matched to clinical indication); or iterative reconstruction. Contrast material: OMNI 350; Contrast volume: 80 ml; Contrast route: INTRAVENOUS (IV); COMPARISON: CT lung screening [id number] 10/10/2022 1:32 PM RADIATION DOSE METRICS: Total DLP (mGy-cm): 462.97 FINDINGS: Thyroid: No significant thyroid pathology. Lungs: Mild centrilobular pulmonary emphysema is again seen. Interval appearance of new area of consolidation, reticulation and ground-glass opacity in the right paramediastinal location in the posteromedial aspect of the right upper lobe on series 5 image 29 is an example. Compared with 10/10/2022, some areas focal reticulation with interspersed ground-glass opacity in the right upper lobe and right middle lobe. and left anterior upper lobe reticulation on series 5, image 35 are not significantly changed most consistent with scarring. Pleural spaces: No pleural effusion. Heart: Unremarkable. No cardiomegaly. No pericardial effusion. Coronary arteries: No coronary artery calcification evident. Esophagus: Mural thickening distal thoracic esophagus. Lymph nodes: Borderline sized right hilar lymph node series 4, image 38. Mildly enlarged right hilar lymph node 1.2 cm short axis series 4, image 33 with comparison limited by noncontrast technique previously. No left hilar adenopathy. Stable borderline sized AP window lymph node. Vasculature: No evidence of thoracic aortic aneurysm. Diaphragm: Small hiatal hernia. Bones/joints: Levocurvature upper thoracic spine with features of mild degenerative disc disease. Soft tissues: Unremarkable. COMMENTS: The presence of pulmonary emphysema on CT is an independent risk factor for lung cancer. In the absence of a history or active diagnosis of lung cancer, it is recommended that this patient with emphysema be evaluated for enrollment in a low dose CT lung cancer screening program. PROCEDURE INFORMATION: Exam: CT Abdomen And Pelvis With Contrast Exam date and time: 03/22/2024 4:50 PM Age: 58 years old Clinical indication: Abdominal pain; Generalized; Chest pressure; Additional info: Diaphoresis, n/v, TECHNIQUE: Imaging protocol: Computed tomography of the abdomen and pelvis with contrast. Radiation optimization: All CT scans at this facility use at least one of these dose optimization techniques: automated exposure control; mA and/or kV adjustment per patient size (includes targeted exams where dose is matched to clinical indication); or iterative reconstruction. Contrast material: OMNI 350; Contrast volume: 80 ml; Contrast route: INTRAVENOUS (IV); COMPARISON: CT lung screening [id number] 10/10/2022 1:32 PM RADIATION DOSE METRICS: Total DLP (mGy-cm): 462.97 FINDINGS: Lungs: Visualized lung bases are free of significant pathology. Esophagus: Mural thickening distal thoracic esophagus. Diaphragm: Small hiatal hernia. Liver: No significant liver pathology. Gallbladder and biliary ducts: No significant gallbladder pathology. No biliary dilatation. Pancreas: No significant pancreatic pathology. Spleen: No significant splenic pathology. Adrenal glands: Low-attenuation adrenal thickening in a pattern most consistent with adenomatous changes. Kidneys and ureters: No significant renal pathology. Stomach and bowel: There is shortening of the colon with absence of retroperitoneal descending colon. Correlation with any prior surgery recommended. Appendix: Appendix within normal limits. Intraperitoneal space: No ascites. Vasculature: No abdominal aortic aneurysm. Lymph nodes: No evidence of lymphadenopathy. Urinary bladder: Urinary bladder is nondistended limiting assessment of the wall. Reproductive: No significant uterine pathology. No significant adnexal pathology. Bones/joints: Mild degenerative change present in the spine. Soft tissues: Unremarkable. CT/CT chest abdpel w/*[id number] IMPRESSION: 1. Interval appearance of the localized consolidation contiguous coarsened reticular and ground-glass opacities in the medial right upper lobe most likely representing infectious/inflammatory pathology in absence of other significant medical history. 2. Solitary mildly enlarged right hilar lymph node. IMPRESSION: No acute abdominopelvic pathology. Minor findings noted above including small hiatal hernia with mural thickening distal thoracic esophagus.
[2024-03-22 16:42] LABS: Troponin 5 2HR 8.28 ng/L (0-10); Troponin 5 2HR Delta 0.28 ABS# (0-10)
[2024-03-22] MEDS: iohexol 350 mg/mL 500 mL Btl (per mL) IV (16:53)
[2024-03-22] MEDS: DOBUTamine drip 500 MG/250 ML PREMIX 8.16999999999999993 MG IV (17:19)
--- NOTE | 2024-03-22 17:47 | P.HP_ITS ---
Providers/Chief Complaint 2 Primary Care Provider: Betzaida Ruiz Chief Complaint: CHEST PAIN History of Present Illness Nano Olea is a 58 year old female With past medical history of COPD, GERD, hyperlipidemia, hypertension, hypothyroidism, depression presented to the hospital today for complaint of chest pain. Patient was quite diaphoretic on arrival. Initial EKG showed sinus bradycardia. Her heart rate dropped down to 30s and patient received 2 L of atropine and subsequently placed on a dobutamine drip. Cardiology has been consulted. They will see patient in consultation. Patient is not on any rate limiting agents at home. First 2 troponins negative. BNP 194, TSH 0.52, procalcitonin 8.08. Potassium 3.2, chest abdomen CT pelvis obtained which showed interval appearance of localized consolidation contiguous coarsened reticular and groundglass opacities in the medial right upper lobe most likely representing infectious inflammatory pathology in absence of other significant medical history. No acute abdominal pelvic pathology noted. 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 She is unsure what it is called. Currently does not have a cochlear implant since they are malfunctioning and she has sent them for repair. She says she has been coughing for the last couple of days. Also has been having nausea vomiting but no diarrhea. She says she has not been able to smoke cigarettes or have marijuana or have Mountain Dew which she routinely takes. Does not offer any other complaints. Medications/Allergies Home Medications Medication Instructions Recorded Confirmed Last Taken Type levothyroxine 25 mcg capsule 25 mcg PO DAILY 07/18/20 01/24/24 10/09/23 History lisinopril 30 mg tablet 30 mg PO DAILY 07/18/20 01/24/24 10/09/23 History fluticasone fur. 100 mcg-umeclid See Rx Instructions .Route .COMPLEX 08/16/20 01/24/24 10/08/23 History 62.5 mcg-vilant 25 mcg inhalat.powder (Trelegy Ellipta) montelukast 10 mg tablet 10 mg PO DAILY 08/16/20 01/24/24 10/09/23 History cyclobenzaprine 10 mg tablet 10 mg PO TID 07/26/21 01/24/24 10/09/23 History diclofenac sodium 75 mg 75 mg PO BID 07/26/21 01/24/24 10/09/23 History tablet,delayed release escitalopram oxalate 10 mg tablet 10 mg PO DAILY 07/26/21 01/24/24 10/09/23 History (Lexapro) omeprazole 40 mg capsule,delayed 40 mg PO DAILY 07/26/21 01/24/24 10/09/23 History release oxybutynin chloride 5 mg 5 mg PO 1XD 10/09/23 01/24/24 10/09/23 History tablet,extended release 24 hr tramadol 50 mg tablet 50 mg PO Q6H PRN pain #20 tabs 10/10/23 01/24/24 Unknown Rx folic acid 1 mg tablet 1 mg PO DAILY 12/27/23 01/24/24 Unknown History omeprazole 20 mg capsule,delayed 20 mg PO DAILY 12/27/23 01/24/24 Unknown History release Allergies Allergy/AdvReac Type Severity Reaction Status Date / Time clarithromycin [From Biaxin] Allergy RASH Verified 03/22/24 13:58 clonazepam [From Klonopin] Allergy RASH Verified 03/22/24 13:58 Penicillins Allergy RASH Verified 03/22/24 13:58 PFSH Acute 2 PFSH: Medical History (Updated 03/22/24 @ 17:57 by BORIS Faria) Essential hypertension History of COPD Hx of gastroesophageal reflux (GERD) History of high cholesterol Normal colonoscopy Hypertension Hypothyroidism Depression Tinea corporis Hx of cleft palate Radioulnar synostosis Surgical History (Updated 01/24/24 @ 10:02 by Keshav Gregorio MD) Hx of angioplasty Hx of tonsillectomy Hx of rhinoplasty Hx of mastoidectomy Social History Smoking and tobacco/nicotine status: current every day tobacco/nicotine user cigarettes Packs smoked per day: 1.5 Years cigarettes smoked: 40 Second hand smoke exposure: No Alcohol intake: current Alcohol intake frequency: holidays/special occasions only Alcohol type: beer Vitals/I&O/Wt Last Vital Signs Temp 97.7 F 03/22/24 13:50 Pulse 55 L 03/22/24 15:35 Resp 15 03/22/24 15:35 BP 123/89 03/22/24 15:35 Pulse Ox 94 03/22/24 15:35 O2 Del Method Room Air 03/22/24 13:50 03/22/24 03/22/24 03/22/24 06:59 14:59 22:59 Intake Total 500 / 500 Balance 500 / 500 Weight last 48 hrs Weight 54.431 kg Physical Exam 2 Narrative: General: Alert oriented x3, patient seen laying in bed appearing comfortable HEENT: Normocephalic, atraumatic, EOMI, breathing room air Cardio: Sinus bradycardia, normal S1-S2, Respiratory: Mild ronchi right lung, no wheezes, fair b/l air entry noted GI: Abdomen soft, nontender,bowel sounds + Behavior: Appropriate and cooperative Extremities:no edema b/l LE Data 03/22/24 13:53 03/22/24 13:53 A&P Assessment and plan (1) Hypertension: (2) Hypothyroidism: (3) History of COPD: (4) History of high cholesterol: (5) Sinus bradycardia: (6) Pneumonia: Plan #Sinus bradycardia #Pneumonia #Hypertension #Hyperlipidemia #GERD #COPD #Marijuana use #Nicotine dependence #Cleft lip palate status postrepair #Hearing loss, has cochlear implants in place -Patient required 2 doses of atropine and now on dobutamine drip placed by ER. ? Stop dobutamine drip in ICU. Continue to monitor heart rate. Heart rate in 70s at this time. ? Await 6-hour troponin. ? If heart rate drops again will order atropine or place on dopamine drip instead. ? Cardiology consulted. ? First troponin negative, with third troponin pending ? Home medications not confirmed however from list it seems patient is on lisinopril, however no rate limiting agents ? List of medications and call MD. ? Continue escitalopram, folic acid, levothyroxine ? Check free T4 ? Continue Protonix 40 IV daily ? Continue DuoNeb every 6 hours scheduled ? Possible pneumonia on CT. Will place on Zosyn at this time ? Check sputum culture Gram stain ? Check blood cultures - Admit to ICU, placed on telemetry. ? Continue to monitor. Will await cardiology recommendations. ? Place nicotine patch for the patient ? Will place on clear liquid diet. Full code DVT prophylaxis: Heparin SQ twice daily Attestations 2 Medical Necessity Statement*: Greater than 2 midnight stay for management of status bradycardia requiring drip. Diagnoses Hypertension I10 Hypothyroidism E03.9 History of COPD Z87.09 History of high cholesterol Z86.39 Sinus bradycardia R00.1 Pneumonia J18.9
--- NOTE | 2024-03-22 18:59 | PC.NURSE ---
Arrived from ED approximately 1814. Dr. Serna at bedside gave V.O. to stop Dobutamine swith to Dopamine for bradycardia if necessary
[2024-03-22] MEDS: sodium chloride 0.9% 1,000 ML 125 ML IV (19:05)
--- NOTE | 2024-03-22 19:14 | PC.NURSE ---
Dr. Archuleta @bedside: Verbal order to not give Dopamine, d/c order.
[2024-03-22] MEDS: heparin 5,000 unit/mL INJ 1 mL 5000 UNIT SUBCUT (19:16)
--- NOTE | 2024-03-22 19:21 | P.CONIM_ITS ---
Providers/Reason For Consult 2 Consulting Physician/Specialty*: Cardiovascular medicine Reason for Consult*: Bradycardia Requesting Physician: Emergency room Attending Physician: Kylie Serna MD Primary Care Provider: Betzaida Ruiz History of Present Illness History of Present Illness Nano Olea is a 58 year old female with no known history of organic heart disease. She is essentially deaf. She has cochlear implants but they are out for repair so they are not in place. 1 must get very close to her and speak very loudly into her right ear for her to hear anything. She tells me that a primary care provider ordered a 48-hour Holter monitor in December. I do not know why that was ordered and I do not think she does. It showed a minimum heart rate of 33 and a maximum of 117. The rhythm was always sinus. There was no heart block. She had rare premature ventricular and atrial beats. There were very short runs of narrow complex tachycardia. Patient triggered the device twice for chest pain. She has not had any lightheadedness, presyncope or syncope. She came to the emergency room today because she was having chest pain. The emergency room physician saw that her heart rate was in the 30s. The rhythm was sinus and so he gave her 0.5 mg of atropine. He then started her on a dobutamine drip. I was called thereafter and asked why the heart rate was treated. He told me that she had symptomatic bradycardia . When asked what that was he said she was diaphoretic. At no time was she hemodynamically unstable, hypotensive or otherwise as far as I can tell. She has been admitted to the ICU. The dobutamine has been discontinued however the hospitalist has ordered dopamine. Currently the patient's vital signs are stable and her heart rate is 62 with a sinus mechanism. Her troponins so far are negative, 8 and 8. Chest x-ray revealed some pneumonitis. For reasons that are not entirely clear to me the patient had a CT scan of her chest, abdomen and pelvis. There is some consolidation consistent with the finding on the chest x-ray but no other abnormal findings. Patient is not having any chest pain at this time. She feels well. Her chart reveals a history of hypertension, dyslipidemia, COPD, GERD and history of cleft lip and palate repair. She apparently smokes cigarettes and marijuana when she is able. Her favorite drink is Mountain Dew. Review of Systems 2 Narrative: Review of systems is not available due to deafness. Medications/Allergies Home Medications Medication Instructions Recorded Confirmed Last Taken Type levothyroxine 25 mcg capsule 25 mcg PO DAILY 07/18/20 01/24/24 10/09/23 History lisinopril 30 mg tablet 30 mg PO DAILY 07/18/20 01/24/24 10/09/23 History fluticasone fur. 100 mcg-umeclid See Rx Instructions .Route .COMPLEX 08/16/20 01/24/24 10/08/23 History 62.5 mcg-vilant 25 mcg inhalat.powder (Trelegy Ellipta) montelukast 10 mg tablet 10 mg PO DAILY 08/16/20 01/24/24 10/09/23 History cyclobenzaprine 10 mg tablet 10 mg PO TID 07/26/21 01/24/24 10/09/23 History diclofenac sodium 75 mg 75 mg PO BID 07/26/21 01/24/24 10/09/23 History tablet,delayed release escitalopram oxalate 10 mg tablet 10 mg PO DAILY 07/26/21 01/24/24 10/09/23 History (Lexapro) omeprazole 40 mg capsule,delayed 40 mg PO DAILY 07/26/21 01/24/24 10/09/23 History release oxybutynin chloride 5 mg 5 mg PO 1XD 10/09/23 01/24/24 10/09/23 History tablet,extended release 24 hr tramadol 50 mg tablet 50 mg PO Q6H PRN pain #20 tabs 10/10/23 01/24/24 Unknown Rx folic acid 1 mg tablet 1 mg PO DAILY 12/27/23 01/24/24 Unknown History omeprazole 20 mg capsule,delayed 20 mg PO DAILY 12/27/23 01/24/24 Unknown History release Allergies Allergy/AdvReac Type Severity Reaction Status Date / Time clarithromycin [From Biaxin] Allergy RASH Verified 03/22/24 13:58 clonazepam [From Klonopin] Allergy RASH Verified 03/22/24 13:58 Penicillins Allergy RASH Verified 03/22/24 13:58 Current Medications Generic Name Dose Route Start Last Admin Trade Name Freq PRN Reason Stop Dose Admin Heparin Sodium (Porcine) 5,000 unit 03/22/24 18:00 03/22/24 19:16 Heparin 5,000 Unit/Ml Inj 1 Ml SUBCUT 5,000 unit BID JOHNNY Administration Sodium Chloride 1,000 mls @ 125 mls/hr 03/22/24 18:00 03/22/24 19:05 Sodium Chloride 0.9% IV 125 mls/hr .Q8H JOHNNY Administration PFSH Acute 2 PFSH: Medical History (Updated 03/22/24 @ 19:30 by Norris Archuleta MD) Cochlear implant in place Essential hypertension History of COPD Hx of gastroesophageal reflux (GERD) History of high cholesterol Normal colonoscopy Hypertension Hypothyroidism Depression Tinea corporis Hx of cleft palate Radioulnar synostosis Surgical History (Updated 01/24/24 @ 10:02 by Keshva Gregorio MD) Hx of angioplasty Hx of tonsillectomy Hx of rhinoplasty Hx of mastoidectomy Social History Smoking and tobacco/nicotine status: current every day tobacco/nicotine user cigarettes Packs smoked per day: 1.5 Years cigarettes smoked: 40 Second hand smoke exposure: No Alcohol intake: current Alcohol intake frequency: holidays/special occasions only Alcohol type: beer Vitals/I&O/Wt Last Vital Signs Temp 98.9 F 03/22/24 18:25 Pulse 49 L 03/22/24 18:55 Resp 15 03/22/24 18:55 BP 130/55 03/22/24 18:55 Pulse Ox 96 03/22/24 18:55 O2 Del Method Room Air 03/22/24 18:46 03/22/24 03/22/24 03/22/24 06:59 14:59 22:59 Intake Total 510 / 510 Balance 510 / 510 Weight last 48 hrs Weight 118 lb Weight 120 lb Physical Exam 2 Narrative: GENERAL: In general she is thin, hard of hearing in no distress HEENT: Exam within normal limits. Evidence of a prior cleft lip and palate repair NECK: Supple without jugular vein distention. The carotid upstroke is normal without bruits. BACK: Exam normal. LUNGS: Clear. HEART: Regular rate and rhythm. ABDOMEN: Benign without organomegaly or tenderness. EXTREMITIES: No edema. NEUROLOGIC: Exam normal. SKIN: Unremarkable. Data 03/22/24 13:53 03/22/24 13:53 A&P Assessment and plan (1) Hypertension: (2) History of high cholesterol: (3) Sinus bradycardia: (4) History of COPD: (5) Cochlear implant in place: Consult Attestations 2 Medical Necessity Statement: I do not believe this is symptomatic bradycardia. There was nothing on a 48- hour Holter in December just 2 months ago. She has no known structural heart disease. Her EKG is abnormal so there is a small possibility she could be having ischemia however her troponins are negative. Her chest pain seems atypical. She is free of pain now. At this point I would strongly urge transfer to the floor so that we can get her up and walk around to see what her chronotropic response is. I would ask that no vasoactive amines are given to her. This will just cloud the picture. At some point she needs an exercise treadmill stress test to further evaluate her chronotropic response. She is not in need of a pacemaker. and Moderate Time for a total of 40 minutes, includes reviewing past or interval history, examining/interviewing patient, placing orders, counseling patient/family/other support, updating patient/family/other support, discussing plan of care with staff, communicating with other healthcare providers and documenting encounter Diagnoses Hypertension I10 History of high cholesterol Z86.39 Sinus bradycardia R00.1 History of COPD Z87.[address] Z96.21
--- NOTE | 2024-03-22 19:32 | ECG_ITS ---
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 Measurements Intervals [place] Rate: 44 P: 81 KS: 189 QRS: 65 QRSD: 102 T: 144 QT: 484 QTc: 418 Interpretive Statements SINUS BRADYCARDIA POSSIBLE RIGHT VENTRICULAR CONDUCTION DELAY [RSR (QR) IN V1/V2] MODERATE T-WAVE ABNORMALITY, CONSIDER ANTEROLATERAL ISCHEMIA [-0.1+ mV T-WAVE IN V3-V6] MODERATE T-WAVE ABNORMALITY, CONSIDER INFERIOR ISCHEMIA [-0.1+ mV T-WAVE IN II/aVF] Compared to ECG 03/22/2024 14:41:03 Supraventricular rhythm no longer present T-wave abnormality still present Possible ischemia still present Electronically Signed On 03-23-2024 9:57:59 CDT by Norris Archuleta M.D. [id number]
[2024-03-22] MEDS: levofloxacin-dextrose 5 % 500 MG/100 ML PREMIX 100 MG IV (19:54)
[2024-03-22] MEDS: nicotine 21 mg Patch 1 PATCH TRANSDERMA (20:01)
[2024-03-22] MEDS: ipratropium-albuterol 3 mL Neb INHALATION (20:23)
[2024-03-22] MEDS: acetaminophen 325 mg Tablet 650 MG PO (21:03)
--- NOTE | 2024-03-22 22:04 | ECG_ITS ---
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 Measurements Intervals [place] Rate: 57 P: 83 NH: 194 QRS: 67 QRSD: 96 T: 103 QT: 483 QTc: 471 Interpretive Statements SINUS BRADYCARDIA WITH OCCASIONAL SUPRAVENTRICULAR PREMATURE COMPLEXES POSSIBLE RIGHT VENTRICULAR CONDUCTION DELAY [RSR (QR) IN V1/V2] MODERATE T-WAVE ABNORMALITY, CONSIDER ANTEROLATERAL ISCHEMIA [-0.1+ mV T-WAVE IN V3-V6] MODERATE T-WAVE ABNORMALITY, CONSIDER INFERIOR ISCHEMIA [-0.1+ mV T-WAVE IN II/aVF] Compared to ECG 03/22/2024 19:32:48 No significant changes Electronically Signed On 03-23-2024 9:59:07 CDT by Norris Archuleta M.D. [id number]
[2024-03-23] VITALS (39 sets, daily range): BP systolic 108–179; BP diastolic 39–80; PULSE 38–75; RESP 13–27; TEMP 36.5–36.7; O2SAT 93–100
[2024-03-23 00:53] LABS: Amphetamines Screen Urine Negative (Negative); Barbiturates Screen Urine Negative (Negative); Benzodiazepines Screen Urine Negative (Negative); Cocaine Screen Urine Positive (Negative); Opiate Screen Urine Positive (Negative); PCP Screen Urine Negative (Negative); THC Screen Urine Positive (Negative)
[2024-03-23 00:57] LABS: Specific Gravity, Urine 1.005 (1.005-1.030); Urine Appearance Clear (CLEAR); Urine Color Yellow (Yellow); pH Urine 7 (5-7)
[2024-03-23 00:58] LABS: Add Urine Microscopic? YES; Amorphous Sediment Urine TRACE /hpf; Bacteria Urine 3+ /hpf; Bilirubin Urine 1+ (Negative); Blood Urine Neg (Negative); Glucose Urine UA Norm (Normal); Ketones Urine 1+ (Negative); Leukocyte Esterase Urine 1+ (Negative); Mucus Urine TRACE /hpf; Nitrate Urine Positive (Negative); Protein Urine 2+ (Negative); RBC Urine 0-4 /hpf (0-2); Urobilinogen Urine 4 mg/dL (Negative)
[2024-03-23 00:59] LABS: Add Urine Culture? Yes; Hyaline Casts Urine 0-4 /lpf
--- NOTE | 2024-03-23 02:10 | PC.NURSE ---
Substance Abuse Assessment: Pt denies illicit drug use.
--- NOTE | 2024-03-23 02:18 | PC.NURSE ---
Low HR: HR in the low 40's, occasionally dipping into the high 30's. BP/SpO2 stable. Pt denies feeling dizzy/lightheaded. A&Ox4. Dr. Hunter notified @0221- No new orders at this time. Continuos cardiac monitoring continued.
[2024-03-23] MEDS: sodium chloride 0.9% 1,000 ML 125 ML IV (02:52)
[2024-03-23 03:54] LABS: Basophils # 0.1 10^3/uL (0.0-0.1); Basophils % 1.2 %; Eosinophils # 0.1 10^3/uL (0.0-0.8); Eosinophils % 2.5 %; Hematocrit 40.6 % (36-47); Lymphocytes # 1.3 10^3/uL (0.8-4.8); Lymphocytes % 23.3 %; Mean Corpuscular HGB Conc 33.7 g/dL (30-55); Mean Corpuscular Hemoglobin 32.1 pg (27-33); Mean Corpuscular Volume 95.1 fl (85-98); Mean Platelet Volume 10.4 fL (7.4-10.4); Monocytes # 0.8 10^3/uL (0.2-0.9); Monocytes % 13.7 %; Neutrophils # 3.36 10^3/uL (1.8-7.7); Neutrophils % 58.9 %; Nucleated Red Blood Cells % 0 %; Platelet Count 199 10^3/cmm (157-399); Red Blood Count 4.27 10^6/uL (3.85-5.65); Red Cell Distribution Width 12.9 % (12.1-15.1)
[2024-03-23 04:20] LABS: Alanine Aminotransferase 6 U/L (0-33); Albumin Level 3.4 g/dL (3.5-5.2); Alkaline Phosphatase 72 U/L (35-105); Anion Gap 13.3 (5-19); Aspartate Amino Transferase 14 U/L (0-32); Blood Urea Nitrogen 12 mg/dL (6-20); Calcium 8.6 mg/dL (8.5-10.5); Carbon Dioxide 25 mmol/L (22-29); Chloride 104 mmol/L (98-107); Creatinine Clr Calc Pharmacy 74.9961; Globulin 2.4 g/dL (1.3-4.6); Glomerular Filtration Rate 85.9 mL/min (90-130); Glucose 93 mg/dL (65-115); Magnesium 1.8 mg/dL (1.7-2.3); Osmolality Calculated 287 mOsm/kg (285-295); Phosphorus 3.7 mg/dL (2.5-4.5); Potassium 3.3 mmol/L (3.5-5.1); Sodium 139 mmol/L (136-145); Total Bilirubin 0.2 mg/dL (0.15-1.2); Total Protein 5.8 g/dL (6.6-8.7)
--- NOTE | 2024-03-23 06:00 | USCV_ITS ---
Nano Olea Age: 58 Gender: F : 1965 Exam Date: 03/23/2024 08:18 Ordering Phys: Kylie Serna MD Technologist: Charan Long Exam Location: [facility] Indication: bradycardia BP: 125 / 75 HR: 69 Rhythm: Sinus Technical Quality: Adequate MEASUREMENTS (Male / Female) Normal Values 2D ECHO LV Diastolic Diameter PLAX 4.1 cm 4.2 - 5.9 / 3.9 - 5.3 cm IVS Diastolic Thickness 0.9 cm 0.6 - 1.0 / 0.6 - 0.9 cm IVS Systolic Thickness 1.4 cm LVPW Diastolic Thickness 0.8 cm 0.6 - 1.0 / 0.6 - 0.9 cm LVPW Systolic Thickness 1.6 cm LVOT Diameter 2.0 cm LV Ejection Fraction 2D Teich 87.6 % LV Ejection Fraction MOD 2C 67.6 % LV Ejection Fraction 2C AL 67.5 % LA Diameter 3.0 cm RA Systolic Volume 4C AL 26.5 ml RA Systolic Volume 4C MOD 26.8 ml LA Sys Volume AL 26.2 cm cubed LA Sys Volume Index AL 19.1 cm cubed/m squared Aorta at Sinotubular Diameter 2.0 cm IVC Diameter 2.4 cm M-MODE LA Ao Ratio MM 1.5 AV Cusp Separation MM 1.8 cm DOPPLER AV Peak Velocity 205.0 cm/s LVOT Peak Velocity 121.0 cm/s AV Area Cont Eq vti 2.0 cm squared AV Area Cont Eq pk 1.9 cm squared MV Peak Velocity 146.0 cm/s MV Area PHT 4.9 cm squared Mitral E to A Ratio 1.4 TV Peak Velocity 220.0 cm/s TR Peak Velocity 278.0 cm/s TR Peak Gradient 30.9 mmHg TR Mean Velocity 222.0 cm/s TR Mean Gradient 21.5 mmHg TR Velocity Time Integral 89.6 cm PV Peak Velocity 96.0 cm/s RV Ejection Time 0.3 s FINDINGS Left Ventricle Normal left ventricular size, systolic function and wall thickness, with no regional wall motion abnormalities. Normal left ventricular wall thickness. Normal diastolic filling pattern. Right Ventricle The right ventricle is normal in size and function. Right Atrium The right atrium is normal in size. Left Atrium The left atrium is normal in size. Mitral Valve Structurally normal mitral valve without significant stenosis or prolapse. There is no mitral regurgitation. Aortic Valve Structurally normal aortic valve without significant sclerosis or stenosis. There is no aortic regurgitation. Tricuspid Valve Structurally normal tricuspid valve without significant stenosis or regurgitation. Pulmonary artery systolic pressure is normal. Pulmonic Valve Structurally normal pulmonic valve without significant stenosis. There is no pulmonic regurgitation. Pericardium Normal pericardium without effusion. Aorta Normal ascending aorta dimension. IVC The inferior vena cava appears normal. CONCLUSIONS Normal transthoracic echocardiogram. There are no prior echocardiogram studies to compare. Dr. Norris Archuleta MD (Electronically Signed) Final Date: 23 March 2024 09:50 S
[2024-03-23] MEDS: ipratropium-albuterol 3 mL Neb INHALATION ×4 (07:27→19:52)
--- NOTE | 2024-03-23 08:19 | P.PN_ITS ---
Subjective 2 Subjective: She has had an uneventful night. No bradycardia. Heart rates in the 60s and 70s. No chest pain. She states she has back pain. Still very difficult to communicate due to the hearing loss. Interestingly, her toxicology screen was positive for opiates, cocaine and marijuana. She feels fine today. Vitals/I&O/Wt Last Vital Signs Temp 98.0 F 03/23/24 04:00 Pulse 55 L 03/23/24 07:33 Resp 16 03/23/24 07:27 BP 125/75 03/23/24 06:00 Pulse Ox 95 03/23/24 07:27 O2 Del Method Room Air 03/23/24 07:27 03/22/24 03/23/24 03/23/24 22:59 06:59 14:59 Intake Total 969.583 / 875.296 4293.333 / 2162.916 Output Total 200 / 200 Balance 969.583 / 969.583 993.333 / 1962.916 Weight last 48 hrs Weight 110 lb Weight 118 lb Weight 120 lb Physical Exam 2 Narrative: GENERAL: In general she looks comfortable HEENT: Exam within normal limits. [] NECK: Supple without jugular vein distention. The carotid upstroke is normal without bruits. [] BACK: Exam normal. [] LUNGS: Clear. [] HEART: Regular rate and rhythm. [] ABDOMEN: Benign without organomegaly or tenderness. [] EXTREMITIES: No edema. [] NEUROLOGIC: Exam normal. [] SKIN: Unremarkable. [] Data 03/23/24 03:45 03/23/24 03:45 A&P Assessment and plan (1) Hypertension: (2) Sinus bradycardia: (3) History of high cholesterol: (4) Polysubstance abuse: Plan I strongly recommend sending her to the floor and getting her up and around. She needs a stress test which will increase her heart rate either an exercise treadmill test or a dobutamine. She says she will try to do a treadmill test. If that is unsuccessful I would switch her to a dobutamine echo. Attestations 2 Medical Necessity Statement*: Hospitalization for chest pain and bradycardia and Moderate Time for a total of 30 minutes, includes reviewing past or interval history, examining/interviewing patient, placing orders, counseling patient/family/other support, updating patient/family/other support, discussing plan of care with staff, communicating with other healthcare providers, documenting encounter and coordinating care Diagnoses Hypertension I10 Sinus bradycardia R00.1 History of high cholesterol Z86.39 Polysubstance abuse F19.10
--- NOTE | 2024-03-23 08:24 | ECG_ITS ---
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 Interpretive Statements NAME OF STUDY: DOBUTAMINE STRESS ECHOCARDIOGRAM INDICATION: [Chest Pain; Chronotropic Incompetence] Patient failed to achieve 85% of the maximum predicted heart rate with standard exercise treadmill testing. The examination was changed to a dobutamine stress echo. Dobutamine was used in a standard infusion up to 50 mcg/kg/min. At the end of stage IV the patient's heart rate suddenly went from 89-159. This is well above the maximum predicted heart rate. It increased further once the dobutamine was turned off with a maximum heart rate of 172 bpm. The maximum rate-pressure product before the dobutamine was turned off was 245. At the maximal heart rate it was 299. The blood pressure at rest was 138/70. The maximum blood pressure was 183/83. There were no symptoms. The baseline electrocardiogram reveals sinus bradycardia with nonspecific ST and T wave changes noted throughout. With higher doses of dobutamine there was ectopy noted, primarily multiform PVCs and episodes of nonsustained ventricular tachycardia. At the maximal heart rate there was ST segment depression in multiple leads to about 1.5 mm below baseline. This returned to baseline fairly quickly into recovery. She was given 5 mg of metoprolol at the end for heart rate response. Prior to this she may have had a short burst of SVT or atrial fibrillation which was self-limited. No chest pain noted. See ultrasound report for echo information. Electronically Signed On 03-24-2024 15:05:14 CDT by Norris Archuleta M.D. [id number]
[2024-03-23] MEDS: heparin 5,000 unit/mL INJ 1 mL 5000 UNIT SUBCUT ×2 (09:41→17:45)
[2024-03-23] MEDS: nicotine 21 mg Patch 1 PATCH TRANSDERMA (09:42)
[2024-03-23] MEDS: pantoprazole 40 mg SDV IVP (09:42)
[2024-03-23] MEDS: acetaminophen 325 mg Tablet 650 MG PO (13:01)
--- NOTE | 2024-03-23 14:26 | P.PN_ITS ---
Subjective 2 Subjective: seen today pt hr stable but bradycardic into 50's cocaine postiive Vitals/I&O/Wt Last Vital Signs Temp 98.0 F 03/23/24 04:00 Pulse 65 03/23/24 12:00 Resp 27 H 03/23/24 12:00 BP 172/78 03/23/24 12:00 Pulse Ox 96 03/23/24 12:00 O2 Del Method Room Air 03/23/24 11:36 03/22/24 03/23/24 03/23/24 22:59 06:59 14:59 Intake Total 969.583 / 964.939 1762.333 / 2162.916 914.583 / 914.583 Output Total 200 / 200 600 / 600 Balance 969.583 / 969.583 993.333 / 1962.916 314.583 / 314.583 Weight last 48 hrs Weight 49.895 kg Weight 53.524 kg Weight 54.431 kg Physical Exam 2 Narrative: General: Alert oriented x3, patient seen laying in bed appearing comfortable HEENT: Normocephalic, atraumatic, EOMI, breathing room air Cardio: Sinus bradycardia, normal S1-S2, Respiratory: Mild ronchi right lung, no wheezes, fair b/l air entry noted GI: Abdomen soft, nontender,bowel sounds + Behavior: Appropriate and cooperative Extremities:no edema b/l LE Data 03/23/24 03:45 03/23/24 03:45 A&P Assessment and plan (1) Hypertension: (2) Hypothyroidism: (3) History of COPD: (4) History of high cholesterol: (5) Sinus bradycardia: (6) Pneumonia: Plan #Sinus bradycardia #Pneumonia #Hypertension #Hyperlipidemia #GERD #COPD #Marijuana use #Nicotine dependence #Cleft lip palate status postrepair #Hearing loss, has cochlear implants in place -Patient required 2 doses of atropine and now on dobutamine drip placed by ER. ? Stop dobutamine drip in ICU. Continue to monitor heart rate. Heart rate in 70s at this time. ? Await 6-hour troponin. ? If heart rate drops again will order atropine or place on dopamine drip instead. ? Cardiology consulted. ? First troponin negative, with third troponin pending ? Home medications not confirmed however from list it seems patient is on lisinopril, however no rate limiting agents ? List of medications and call MD. ? Continue escitalopram, folic acid, levothyroxine ? Check free T4 ? Continue Protonix 40 IV daily ? Continue DuoNeb every 6 hours scheduled ? Possible pneumonia on CT. Will place on Zosyn at this time ? Check sputum culture Gram stain ? Check blood cultures - Admit to ICU, placed on telemetry. ? Continue to monitor. Will await cardiology recommendations. ? Place nicotine patch for the patient ? Will place on clear liquid diet. Full code DVT prophylaxis: Heparin SQ twice daily Todays plan 03/23 appreciate cardio consult treadmill stress test in am as per cardio recs she is cocaine positive, pt denying illicit drug use - continue nicotine patch - continue cardiac diet - continue escitalopram, folic acid, levothyroxine Attestations 2 Medical Necessity Statement*: Hospitalization for chest pain and bradycardia Diagnoses Hypertension I10 Hypothyroidism E03.9 History of COPD Z87.09 History of high cholesterol Z86.39 Sinus bradycardia R00.1 Pneumonia J18.9
[2024-03-23] MEDS: levofloxacin-dextrose 5 % 500 MG/100 ML PREMIX 100 MG IV (19:47)
--- NOTE | 2024-03-23 23:38 | PC.NURSE ---
Agitation: Pt states she needs something to calm me down , that I'm coming off 25 years of marijuana, nicotine, and mountain dew, I'm fixing to loose it . Pt is upset and states we are not compassionate . Dr. Heath notified. New order for 1mg PO Ativan ONCE NOW. Warning popped up for allergy. Dr. Heath notified of allergy and reaction- order to continue with medication.
[2024-03-24] VITALS (25 sets, daily range): BP systolic 106–171; BP diastolic 54–102; PULSE 48–65; RESP 14–28; TEMP 36.6–37.7; O2SAT 78–98
[2024-03-24] MEDS: LORazepam 1 mg Tablet PO (00:03)
[2024-03-24 04:35] LABS: Basophils # 0.1 10^3/uL (0.0-0.1); Eosinophils # 0.1 10^3/uL (0.0-0.8); Eosinophils % 1.7 %; Hematocrit 38.9 % (36-47); Lymphocytes # 1.3 10^3/uL (0.8-4.8); Lymphocytes % 21.4 %; Mean Corpuscular HGB Conc 34.2 g/dL (30-55); Mean Corpuscular Hemoglobin 32.1 pg (27-33); Mean Platelet Volume 11.2 fL (7.4-10.4); Monocytes # 0.7 10^3/uL (0.2-0.9); Monocytes % 11.2 %; Neutrophils # 3.86 10^3/uL (1.8-7.7); Neutrophils % 64.5 %; Nucleated Red Blood Cells % 0 %; Platelet Count 234 10^3/cmm (157-399); Red Blood Count 4.14 10^6/uL (3.85-5.65); Red Cell Distribution Width 12.7 % (12.1-15.1); White Blood Count 5.98 10^3/uL (3.29-11.43)
[2024-03-24 04:59] LABS: Blood Urea Nitrogen 4 mg/dL (6-20); Calcium 8.9 mg/dL (8.5-10.5); Carbon Dioxide 24 mmol/L (22-29); Chloride 105 mmol/L (98-107); Creatinine Clr Calc Pharmacy 72.9886; Glomerular Filtration Rate 85.9 mL/min (90-130); Glucose 101 mg/dL (65-115); Magnesium 1.7 mg/dL (1.7-2.3); Osmolality Calculated 287 mOsm/kg (285-295); Sodium 140 mmol/L (136-145)
[2024-03-24 05:02] LABS: Anion Gap 14.3 (5-19); Potassium 3.3 mmol/L (3.5-5.1)
--- NOTE | 2024-03-24 07:20 | P.PN_ITS ---
Subjective 2 Subjective: Uneventful night. Heart rates in the 40s when she is sleeping with a sinus rhythm. No other issues. She denies use of cocaine despite the fact that it was present in her talk screen. She admits to alcohol, marijuana and narcotic pain relievers. Vitals/I&O/Wt Last Vital Signs Temp 98.3 F 03/24/24 04:02 Pulse 48 L 03/24/24 06:00 Resp 23 H 03/24/24 06:00 BP 143/73 03/24/24 06:00 Pulse Ox 94 03/24/24 06:00 O2 Del Method Room Air 03/24/24 06:00 03/23/24 03/24/24 03/24/24 22:59 06:59 14:59 Intake Total 562 / 1476.583 Output Total 400 / 1000 775 / 1775 Balance 162 / 476.583 -775 / -298.417 Weight last 48 hrs Weight 108 lb 14.4 oz Weight 110 lb Weight 118 lb Weight 120 lb Physical Exam 2 Narrative: GENERAL: In general she is awake and alert but hard of hearing HEENT: Exam within normal limits. NECK: Supple without jugular vein distention. The carotid upstroke is normal without bruits. BACK: Exam normal. LUNGS: Clear. HEART: Regular rate and rhythm. ABDOMEN: Benign without organomegaly or tenderness. EXTREMITIES: No edema. NEUROLOGIC: Exam normal. SKIN: Unremarkable. Data 03/24/24 03:10 03/24/24 03:10 Micro: Microbiology 03/22/24 21:38 Gram Stain - Final Sputum - Expectorated Sputum A&P Assessment and plan (1) Hypertension: (2) History of high cholesterol: (3) Sinus bradycardia: (4) Polysubstance abuse: Plan Exercise treadmill test today. If she fails that then dobutamine echo. The transthoracic echo was unremarkable. Attestations 2 Medical Necessity Statement*: Hospitalization for management of bradycardia and Moderate Time for a total of 30 minutes, includes reviewing past or interval history, examining/interviewing patient, counseling patient/family/other support, updating patient/family/other support, discussing plan of care with staff, communicating with other healthcare providers and documenting encounter Diagnoses Hypertension I10 History of high cholesterol Z86.39 Sinus bradycardia R00.1 Polysubstance abuse F19.10
[2024-03-24] MEDS: pantoprazole 40 mg SDV IVP (09:20)
[2024-03-24] MEDS: heparin 5,000 unit/mL INJ 1 mL 5000 UNIT SUBCUT ×2 (09:20→18:28)
[2024-03-24] MEDS: nicotine 21 mg Patch 1 PATCH TRANSDERMA (09:20)
--- NOTE | 2024-03-24 10:09 | PC.SOCIAL ---
IMM Update pg 2 of IMM updated and reviewed w/ patient. Copy provided and copy dated, initialed and placed in chart.
--- NOTE | 2024-03-24 13:10 | PC.NURSE ---
pt to [facility] for stress test.
--- NOTE | 2024-03-24 13:25 | P.PN_ITS ---
Subjective 2 Subjective: Patient has a cochlear implant Had a feeling Patient is not complain of any active symptoms No overnight events Plan for stress test today Will follow-up with cardiology regarding further plan and recommendations Patient is still in bradycardic rhythm sinus bradycardia Vitals/I&O/Wt Last Vital Signs Temp 97.8 F 03/24/24 09:00 Pulse 51 L 03/24/24 10:00 Resp 16 03/24/24 10:00 BP 148/64 03/24/24 10:00 Pulse Ox 93 03/24/24 10:00 O2 Del Method Room Air 03/24/24 10:00 03/23/24 03/24/24 03/24/24 22:59 06:59 14:59 Intake Total 562 / 1476.583 Output Total 400 / 1000 775 / 1775 100 / 100 Balance 162 / 476.583 -775 / -298.417 -100 / -100 Weight last 48 hrs Weight 49.396 kg Weight 49.895 kg Weight 53.524 kg Weight 54.431 kg Physical Exam 2 Narrative: Euvolemic Sinus bradycardia Stable Hemodynamically stable Pleasant cough Currently on room air Nonfocal neuroexam GCS 15 Data 03/24/24 03:10 03/24/24 03:10 Micro: Microbiology 03/22/24 21:38 Gram Stain - Final Sputum - Expectorated Sputum Sputum Culture - Preliminary 03/23/24 00:10 Urine Culture - Preliminary Urine,Clean Catch A&P Assessment and plan (1) Hypertension: (2) Sinus bradycardia: (3) Hypothyroidism: (4) History of COPD: Plan Sinus bradycardia No active ischemic changes Plan for stress test Check for chronotropic incompetence as well Patient is hemodynamically stable Currently managed in ICU Doing well I will continue her levothyroxine continue medications such as DuoNeb for COPD Attestations 2 Medical Necessity Statement*: Will follow-up with cardiology recommendations after stress test Diagnoses Hypertension I10 Sinus bradycardia R00.1 Hypothyroidism E03.9 History of COPD Z87.09
--- NOTE | 2024-03-24 13:30 | SUR.PHASEI ---
INTRA STRESS NOTE Patient not able to meet THR on the treadmill. Maximum percentage achieved was 70% of maximum predicted HR. Dr Archuleta notified. Plan for DSE if ultrasound available. Abort plain treadmill. Noted.
--- NOTE | 2024-03-24 13:43 | USCV_ITS ---
Dobutamine Stress Echo Nano Olea Age: 58 Gender: F : 1965 Exam Date: 03/24/2024 13:54 Ordering Phys: Norris Archuleta MD ([email or web address]) Technologist: JUVE Exam Location: [facility] [place] Indication: Chest Pain; Chronotropic Incompetence Rhythm: Sinus Patient History: Chest pain, Smoker, Hyperlipidemia, Hypertension Cardiac Medications: NONE Medications in past 24 hours: NONE Contrast: Total Dose (mL): Stress Results Protocol: Peak Dose (???g/kg/min): Duration (min:sec): Atropine:(mg) Target HR: 138 Double Product: Resting HR: Resting BP: / Peak HR: Peak BP: / Max Predicted HR: 162 % Max Predicted HR Stress Summary: The patient exhibited a hypertensive response with stress. The patient's target heart rate was achieved. BP Response: Normal Reason for Termination: Exceeded target heart rate (85% max predicted) Cardiac Symptoms: Short of Breath ECG Analysis Resting EKG: Sinus bradycardia mild ST segment depression Stress EK.[address] segment depression in multiple leads Arrhythmia: Multiformed PVCs, nonsustained VT and possible self-limited atrial fibrillation and SVT. MEASUREMENTS (Male/Female) Normal Values FINDINGS Electrocardiogram suggestive but not diagnostic of ischemia with ventricular arrhythmias, possible SVT and or atrial fibrillation at peak dobutamine infusion. Normal left ventricular wall motion at rest and with dobutamine infusion without evidence of wall motion abnormalities or ischemia. CONCLUSIONS Dobutamine stress echocardiogram likely negative for ischemia with ST changes at maximum dobutamine infusion but without echocardiographic and wall motion disturbances. Dr. Norris Archuleta MD (Electronically Signed) Final Date: 24 March 2024 15:04 S
[2024-03-24] MEDS: DOBUTtamine 200 MG in sodium chloride 0.9% 34 ML 7.41000000000000014 MG IV (14:03)
[2024-03-24] MEDS: metoprolol tartrate 1 mg/1 mL SDV 5 mL 5 MG IVP (14:17)
--- NOTE | 2024-03-24 14:30 | PC.NURSE ---
pt back from L
[2024-03-24] MEDS: ipratropium-albuterol 3 mL Neb INHALATION ×2 (15:15→19:42)
[2024-03-24] MEDS: levofloxacin-dextrose 5 % 500 MG/100 ML PREMIX 100 MG IV (20:55)
[2024-03-25] VITALS (17 sets, daily range): BP systolic 98–179; BP diastolic 69–92; PULSE 41–74; RESP 14–29; TEMP 36.2–37.3; O2SAT 91–98
[2024-03-25 05:01] LABS: Basophils # 0.1 10^3/uL (0.0-0.1); Basophils % 1.7 %; Eosinophils # 0.2 10^3/uL (0.0-0.8); Eosinophils % 4.1 %; Hematocrit 42.7 % (36-47); Lymphocytes # 1.7 10^3/uL (0.8-4.8); Mean Corpuscular HGB Conc 33.5 g/dL (30-55); Mean Corpuscular Hemoglobin 31.8 pg (27-33); Mean Corpuscular Volume 95.1 fl (85-98); Mean Platelet Volume 10.3 fL (7.4-10.4); Monocytes # 0.7 10^3/uL (0.2-0.9); Monocytes % 13.1 %; Neutrophils % 48.7 %; Nucleated Red Blood Cells % 0 %; Platelet Count 288 10^3/cmm (157-399); Red Blood Count 4.49 10^6/uL (3.85-5.65); Red Cell Distribution Width 12.9 % (12.1-15.1); White Blood Count 5.34 10^3/uL (3.29-11.43)
[2024-03-25 05:28] LABS: Anion Gap 15.2 (5-19); Blood Urea Nitrogen 6 mg/dL (6-20); Calcium 9.5 mg/dL (8.5-10.5); Carbon Dioxide 28 mmol/L (22-29); Chloride 102 mmol/L (98-107); Creatinine Clr Calc Pharmacy 62.4638; Glomerular Filtration Rate 73.7 mL/min (90-130); Glucose 103 mg/dL (65-115); Osmolality Calculated 292 mOsm/kg (285-295); Potassium 3.2 mmol/L (3.5-5.1); Sodium 142 mmol/L (136-145)
--- NOTE | 2024-03-25 05:40 | ECG_ITS ---
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 Measurements Intervals [place] Rate: 41 P: 82 IN: 193 QRS: 20 QRSD: 106 T: 55 QT: 542 QTc: 452 Interpretive Statements SINUS BRADYCARDIA POSSIBLE RIGHT VENTRICULAR CONDUCTION DELAY [RSR (QR) IN V1/V2] Some nonspecific ST changes PROLONGED QT INTERVAL Compared to ECG 03/22/2024 22:04:21 Prolonged QT interval now present T-wave abnormality no longer present Possible ischemia no longer present Electronically Signed On 03-25-2024 23:44:49 CDT by Laquita Perez M.D. [id number]
[2024-03-25 06:22] LABS: Troponin T (5th) Once 8 ng/L (0-10)
--- NOTE | 2024-03-25 07:26 | P.PN_ITS ---
Subjective 2 Subjective: Patient had a treadmill stress test yesterday and could not get above 70% of the maximum predicted heart rate. A dobutamine was done which showed normal chronotropic response at peak dobutamine. Her heart rate increased significantly toward the end and there were flat ST segment depressions of about 1 or 1.5 mm. She also had some nonsustained ventricular tachycardia at peak dobutamine as well as the possibility of some short burst of SVT and A-fib. Overnight her heart rate drops down in the 30s when she sleeping. Nurses were concerned that she had complete heart block. They obtained a strip of this and she has sinus bradycardia with U waves at the end of the T waves. She did not have any hemodynamic compromise with heart rates in the 30s. She continues to have intermittent episodes of unusual chest pain. Vitals/I&O/Wt Last Vital Signs Temp 99.2 F 03/25/24 04:00 Pulse 42 L 03/25/24 06:00 Resp 17 03/25/24 06:00 BP 179/91 03/25/24 06:00 Pulse Ox 94 03/25/24 06:00 O2 Del Method Room Air 03/25/24 06:00 03/24/24 03/25/24 03/25/24 22:59 06:59 14:59 Intake Total 200 / 203.953 220 / 423.953 Output Total 350 / 450 400 / 850 Balance -150 / -246.047 -180 / -426.047 Weight last 48 hrs Weight 103 lb 9.876 oz Weight 108 lb 14.4 oz Physical Exam 2 Narrative: GENERAL: General she looks and feels well. Hard of hearing. HEENT: Exam within normal limits. NECK: Supple without jugular vein distention. The carotid upstroke is normal without bruits. BACK: Exam normal. LUNGS: Clear. HEART: Regular rate and rhythm. ABDOMEN: Benign without organomegaly or tenderness. EXTREMITIES: No edema. NEUROLOGIC: Exam normal. SKIN: Unremarkable. Data 03/25/24 04:32 03/25/24 04:32 Micro: Microbiology 03/22/24 21:38 Gram Stain - Final Sputum - Expectorated Sputum Sputum Culture - Preliminary 03/23/24 00:10 Urine Culture - Preliminary Urine,Clean Catch A&P Assessment and plan (1) Hypertension: (2) History of high cholesterol: (3) Sinus bradycardia: (4) Polysubstance abuse: Plan The ultrasound portion of the stress test is completely normal so I think this is a negative stress test. The EKG changes including the arrhythmias were at peak dobutamine at 50 mcg/kg/min. I suspect these EKG findings are related to the high-dose dobutamine. There is no evidence of high degree AV block. There is no evidence of hemodynamic compromise with heart rates in the 30s while she is sleeping. I would get her up and around today and if she does well I think she can be discharged home. Attestations 2 Medical Necessity Statement*: Hospitalization for bradycardia and chest pain and Moderate Time for a total of 30 minutes, includes reviewing past or interval history, examining/interviewing patient, counseling patient/family/other support, updating patient/family/other support, discussing plan of care with staff, communicating with other healthcare providers and documenting encounter Diagnoses Hypertension I10 History of high cholesterol Z86.39 Sinus bradycardia R00.1 Polysubstance abuse F19.10
[2024-03-25] MEDS: ipratropium-albuterol 3 mL Neb INHALATION ×2 (08:04→11:30)
[2024-03-25] MEDS: heparin 5,000 unit/mL INJ 1 mL 5000 UNIT SUBCUT (08:40)
[2024-03-25] MEDS: pantoprazole 40 mg SDV IVP (08:40)
[2024-03-25] MEDS: levothyroxine 50 mcg Tablet PO (08:40)
[2024-03-25] MEDS: nicotine 21 mg Patch 1 PATCH TRANSDERMA (08:40)
[2024-03-25] MEDS: lisinopril 10 mg Tablet PO (08:40)
--- NOTE | 2024-03-25 10:57 | PM.DCS ---
Discharge Providers Date of Admission: 03/22/24 17:45 Date of Discharge: March 25, 2024 Attending Provider at Admission: Kylie Serna MD Attending Provider at Discharge: Tarik Hall MD Primary Care Provider: Betzaida Ruiz Diagnoses at Discharge Discharge Diagnosis (1) Hypertension: Status: Acute (2) History of high cholesterol: Status: Acute (3) Sinus bradycardia: Status: Acute (4) Polysubstance abuse: Status: Acute Reason for Visit Reason for Visit: CHEST PAIN Hospital Course Hospital Course 58-year-old female who present to the hospital with chief complaint of chest pain. Chest pain was deemed atypical, echo was done which did not show any wall motion abnormality, patient went for stress test because her heart rate was consistently below 60s it dipped down to low 30s and she had to be given atropine and then eventually put on dobutamine drip. Her drip was turned off in the ICU, patient went for dobutamine stress test she did show EKG changes which was deemed related to the dose of dobutamine, EKG showed sinus bradycardia, there was concern by the nursing staff regarding third-degree heart block, prescription was printed cardiology Dr. King evaluated and diagnosed her with sinus bradycardia there is no sign of third-degree heart block or high degree AV block. There is no indication for pacemaker patient has not shown any sign of hemodynamic instability, there is no sign of confusion shortness of breath her pain is atypical. She has cochlear implant very hard of hearing but able to understand and comprehend. Patient will be discharged home with event monitor follow-up with cardiology outpatient. Avoid AV ayala blocking agent. Patient did take flight of stairs in the hospital supervised by the nursing staff, she did not develop any symptoms such as chest pain shortness of breath confusion or hemodynamic instability. She is being discharged with stable hemodynamics. Cardiology has cleared her to go home TSH was 8.5, and I will increase her levothyroxine dose from 50 mcg to 75 mcg at this point follow-up with Dr. Perez within 3 weeks Physical Exam Narrative: Awake and alert Hemodynamic stable Currently on room air Heart rate 57 No symptoms on exertion S1, S2 sinus bradycardia Discharge Data Studies Completed and Pending Completed Studies During Hospitalization Category Date Time Status CT chest abdomen pelvis [CT chest abdpel w/*[id number] Cat Scan 03/22/24 16:32 Completed ] Stat Cardiac Stress Test Request Routine Exams 03/23/24 08:24 Completed XR chest 1V portable [id number] Stat Exams 03/22/24 14:01 Completed CV. echo complete* [id number] Routine Ultrasound 03/23/24 06:00 Completed CV. echo stress wo contr [id number] Routine Ultrasound 03/24/24 13:43 Completed Pending at discharge Category Date Time Status Sputum Culture and Gram Stain Stat Lab 03/22/24 21:38 Results Radiology Impressions Chest X-Ray 03/22/24 14:01 IMPRESSION: 1. New small area of pneumonitis and/or atelectasis in the medial right midlung. 2. Unchanged bilateral bullous emphysema with increased hyperinflation of the lungs. Chest/Abdomen/Pelvis CT 03/22/24 16:32 IMPRESSION: 1. Interval appearance of the localized consolidation contiguous coarsened reticular and ground-glass opacities in the medial right upper lobe most likely representing infectious/inflammatory pathology in absence of other significant medical history. 2. Solitary mildly enlarged right hilar lymph node. IMPRESSION: No acute abdominopelvic pathology. Minor findings noted above including small hiatal hernia with mural thickening distal thoracic esophagus. Laboratory Results WBC 5.34 10^3/uL (3.29-11.43) 03/25/24 04:32 RBC 4.49 10^6/uL (3.85-5.65) 03/25/24 04:32 Hgb 14.30 g/dL (11.27-16.99) 03/25/24 04:32 Hct 42.7 % (36-47) 03/25/24 04:32 MCV 95.1 fl (85-98) 03/25/24 04:32 MCH 31.8 pg (27-33) 03/25/24 04:32 MCHC 33.5 g/dL (30-55) 03/25/24 04:32 RDW 12.9 % (12.1-15.1) 03/25/24 04:32 Plt Count 288 10^3/cmm (157-399) 03/25/24 04:32 MPV 10.3 fL (7.4-10.4) 03/25/24 04:32 Neut % (Auto) 48.7 % 03/25/24 04:32 Lymph % (Auto) 32.0 % 03/25/24 04:32 [place] % (Auto) 13.1 % 03/25/24 04:32 Eos % (Auto) 4.1 % 03/25/24 04:32 Baso % (Auto) 1.7 % 03/25/24 04:32 Neut # (Auto) 2.60 10^3/uL (1.8-7.7) 03/25/24 04:32 Lymph # (Auto) 1.7 10^3/uL (0.8-4.8) 03/25/24 04:32 [place] # (Auto) 0.7 10^3/uL (0.2-0.9) 03/25/24 04:32 Eos # (Auto) 0.2 10^3/uL (0.0-0.8) 03/25/24 04:32 Baso # (Auto) 0.1 10^3/uL (0.0-0.1) 03/25/24 04:32 Nucleated RBC % (auto) 0 % 03/25/24 04:32 Nucleated RBCs # 0.0 /100WBC 03/25/24 04:32 PT 13.40 SECONDS (12.1-14.9) 03/22/24 13:53 INR 0.99 (0.8-1.2) 03/22/24 13:53 APTT 40.0 SECONDS (23.9-36.7) H 03/22/24 13:53 Sodium 142 mmol/L (136-145) 03/25/24 04:32 Potassium 3.2 mmol/L (3.5-5.1) L 03/25/24 04:32 Chloride 102 mmol/L (98-107) 03/25/24 04:32 Carbon Dioxide 28 mmol/L (22-29) 03/25/24 04:32 Anion Gap 15.2 (5-19) 03/25/24 04:32 BUN 6 mg/dL (6-20) 03/25/24 04:32 Creatinine 0.8 mg/dL (0.5-0.9) 03/25/24 04:32 GFR Calculation 73.7 mL/min (90-130) L 03/25/24 04:32 Glucose 103 mg/dL (65-115) 03/25/24 04:32 Calculated Osmolality 292 mOsm/kg (285-295) 03/25/24 04:32 Calcium 9.5 mg/dL (8.5-10.5) 03/25/24 04:32 Phosphorus 3.7 mg/dL (2.5-4.5) 03/23/24 03:45 Magnesium 1.7 mg/dL (1.7-2.3) 03/24/24 03:10 Total Bilirubin 0.2 mg/dL (0.15-1.2) 03/23/24 03:45 AST 14 U/L (0-32) 03/23/24 03:45 ALT 6 U/L (0-33) 03/23/24 03:45 Alkaline Phosphatase 72 U/L (35-105) 03/23/24 03:45 Troponin T 5th Gen ng/L 8 ng/L (0-10) 03/25/24 04:32 Troponin T Baseline 8 ng/L (0-10) 03/22/24 13:53 Troponin T 120 Minute 8.28 ng/L (0-10) 03/22/24 16:13 Delta Troponin T 0.28 ABS# (0-10) 03/22/24 16:13 NT-Pro-B Natriuret Pep 194 pg/mL (0-125) H 03/22/24 13:53 Total Protein 5.8 g/dL (6.6-8.7) L D 03/23/24 03:45 Albumin 3.4 g/dL (3.5-5.2) L 03/23/24 03:45 Globulin 2.4 g/dL (1.3-4.6) 03/23/24 03:45 Procalcitonin 0.08 ng/mL (0-0.5) 03/22/24 13:53 TSH 8.52 uIU/mL (0.27-4.20) H 03/22/24 13:53 TSH Cancelled 03/22/24 13:53 Urine Color Yellow (Yellow) 03/23/24 00:10 Urine Appearance Clear (CLEAR) 03/23/24 00:10 Urine pH 7 (5-7) 03/23/24 00:10 Ur Specific [place] 1.005 (1.005-1.030) 03/23/24 00:10 Urine Protein 2+ (Negative) H 03/23/24 00:10 Urine Glucose (UA) Norm (Normal) 03/23/24 00:10 Urine Ketones 1+ (Negative) H 03/23/24 00:10 Urine Blood Neg (Negative) 03/23/24 00:10 Urine Nitrate Positive (Negative) H 03/23/24 00:10 Urine Bilirubin 1+ (Negative) H 03/23/24 00:10 Urine Urobilinogen 4 mg/dL (Negative) H 03/23/24 00:10 Ur Leukocyte Esterase 1+ (Negative) H 03/23/24 00:10 Urine RBC 0-4 /hpf (0-2) H 03/23/24 00:10 Urine WBC 5-10 /hpf (0-5) H 03/23/24 00:10 Ur Squamous Epith Cells 5-10 /hpf (0-5) H 03/23/24 00:10 Amorphous Sediment Trace /hpf 03/23/24 00:10 Urine Bacteria 3+ /hpf (NONE) H 03/23/24 00:10 Hyaline Casts 0-4 /lpf H 03/23/24 00:10 Urine Mucus Trace /hpf 03/23/24 00:10 Urine Opiates Screen Positive ng/mL (Negative) H 03/23/24 00:10 Ur Barbiturates Screen Negative ng/mL (Negative) 03/23/24 00:10 Ur Phencyclidine Scrn Negative ng/mL (Negative) 03/23/24 00:10 Ur Amphetamines Screen Negative ng/mL (Negative) 03/23/24 00:10 U Benzodiazepines Scrn Negative ng/mL (Negative) 03/23/24 00:10 Urine Cocaine Screen Positive ng/mL (Negative) H 03/23/24 00:10 U Marijuana (THC) Screen Positive ng/mL (Negative) H 03/23/24 00:10 Vitals Last Vital Signs Temp 97.8 F 03/25/24 09:00 Pulse 57 L 03/25/24 10:00 Resp 25 H 03/25/24 10:00 BP 98/83 03/25/24 10:00 Pulse Ox 95 03/25/24 08:00 O2 Del Method Room Air 03/25/24 08:00 Discharge Plan Discharge Patient Disposition: Home Condition: Stable Prescriptions: Continued omeprazole 40 mg capsule,delayed release(DR/EC) 40 mg PO DAILY escitalopram oxalate [Lexapro] 10 mg tablet 10 mg PO DAILY Rx Instructions: ALONG WITH 20MG TO= 30MG TOTAL folic acid 1 mg tablet 1 mg PO DAILY Rx Instructions: 1 tab by mouth daily Trelegy Ellipta 100-62.5-25 mcg blister with device 1 inh inhalation DAILY PRN (Reason: Shortness Of Breath) Rx Instructions: use it as needed montelukast 10 mg tablet 10 mg PO DAILY tramadol 50 mg tablet 50 mg PO Q6H PRN (Reason: pain) Qty: 20 0RF oxybutynin chloride 10 mg tablet extended release 24hr 10 mg PO DAILY albuterol sulfate 90 mcg/actuation HFA aerosol inhaler 2 puff INHALATION Q6H PRN (Reason: Shortness Of Breath) escitalopram oxalate 20 mg tablet 20 mg PO DAILY Rx Instructions: ALONG WITH 10MG TABLET TO= 30MG TOTAL Changed levothyroxine 50 mcg tablet 75 mcg PO DAILY Qty: 60 0RF lisinopril 10 mg tablet 5 mg PO DAILY Qty: 30 0RF Discharge Orders: Discharge Order (Routine); Ordered 03/25/24 Ordered By: Tarik Hall Other Ambulatory Orders: MCT/Event Monitor 21 Days (Routine) Timeframe: 3 Weeks Facility: [facility] - Location: Radiology Ordered By: Tarik Hall Referrals: Laquita Perez MD [Physician] - 3 weeks Betzaida Ruiz PA [Primary Care Provider] - Discharge Diet: Cardiac Discharge Activity: Increase activity as tolerated Patient Instructions: Opioid Safety Discharge Attestations Time Spent in Discharge Care*: greater than 30 min Quality Metrics Clinical Quality Measures [ No reported AMI, CVA or VTE this stay] Coding Level of Care Code Acute Code for Chg Fwd Diagnoses Hypertension I10 History of high cholesterol Z86.39 Sinus bradycardia R00.1 Polysubstance abuse F19.10
[2024-03-25] MEDS: potassium chloride ER 20 mEq Tablet 40 MEQ PO (11:58)
--- NOTE | 2024-03-25 13:05 | PC.NURSE ---
Discharge Note Patient discharged to home via wheelchair. Discharge instructions reviewed with patient. All prescriptions sent to patient preferred pharmacy upon discharge. All patient belongings returned including; shirt, pants, socks, hat, shoes, glasses, phone tin plater and phone.
== END 2024-03-25 13:02 | disposition home or self-care (01) | DRG 308 ==
LOC: ER 17:43 → ICU 17:51
PROVIDERS: Student in an Organized Health Care Education/Training Program; Admitting Provider Internal Medicine; Emergency Provider Emergency Medicine; PCP Physician Assistant; Visit Provider Internal Medicine
DX: R00.1 Bradycardia, unspecified (principal); J18.9 Pneumonia, unspecified organism; J44.0 Chronic obstructive pulmonary disease with (acute) lower respiratory infection; I10 Essential (primary) hypertension; F19.10 Other psychoactive substance abuse, uncomplicated; R82.5 Elevated urine levels of drugs, medicaments and biological substances; Z96.21 Cochlear implant status; E78.5 Hyperlipidemia, unspecified; J44.9 Chronic obstructive pulmonary disease, unspecified; K21.9 Gastro-esophageal reflux disease without esophagitis; E03.9 Hypothyroidism, unspecified; F17.210 Nicotine dependence, cigarettes, uncomplicated
CPT/HCPCS: 36415; 71045; 71260; 74177; 80048; 80053; 80306; 81001; 83735; 83880; 84100; 84145; 84443; 84484; 85025; 85610; 85730; 87070; 87077; 87086; 87186; 87205; 93005; 93017; 93306; 93350; 94640; 94664; 96365; 96372; 96374; 96375; 96376; 99291; C9113; J0461; J1250; J1644; J1956; J2405; J3490; J7030; J7040; J7050; Q9967

== ENCOUNTER → 2024-04-28 14:24 | Outpatient (BNVA) | payer MEDICARE, MEDICAID, SELFPAY | PROVIDERS: PCP Physician Assistant; Visit Provider Nurse Practitioner Family | DX: R00.1 Bradycardia, unspecified (principal) | CPT/HCPCS: 99213 ==

== ENCOUNTER → 2024-07-04 10:45 | Outpatient (BNVA) | payer MEDICARE, MEDICAID, SELFPAY | PROVIDERS: PCP Physician Assistant; Visit Provider Internal Medicine Cardiovascular Disease | DX: R00.1 Bradycardia, unspecified (principal); I10 Essential (primary) hypertension; F17.210 Nicotine dependence, cigarettes, uncomplicated | CPT/HCPCS: 99214 ==

== ENCOUNTER 2024-07-09 12:44 | Outpatient (CLI) | payer MEDICARE, MEDICAID, SELFPAY ==
--- NOTE | 2024-07-09 12:50 | MM_ITS ---
WS: [id number] BILATERAL 3D TOMOSYNTHESIS DIGITAL SCREENING MAMMOGRAPHY WITH CAD CLINICAL INFORMATION: SCREENING HISTORY: Screening mammogram. No current complaints. COMPARISON: 2021 TECHNIQUE: Bilateral CC and MLO views. FINDINGS: The breasts are composed of heterogeneous fibroglandular density tissue, which can limit the detectio n of small underlying mass lesions. No suspicious mass, asymmetry, calcifications, or architectural d istortion. No evidence of malignancy. Dystrophic calcification RIGHT breast. A few incidental punctat e and lucent centered calcifications. MM/MM [facility] tomosynthesis [id number] IMPRESSION: DENSITY: The breasts are heterogeneously dense, which may obscure small masses. BI-RADS: 2 - Benign FOLLOW UP: 1 Year Follow-up Recommend return to annual screening mammography.
== END 2024-07-09 12:45 | disposition home or self-care (01) ==
LOC: RAD 12:47
PROVIDERS: PCP Physician Assistant; Visit Provider Physician Assistant
DX: Z12.31 Encounter for screening mammogram for malignant neoplasm of breast (principal)
CPT/HCPCS: 77063; 77067

== ENCOUNTER 2024-07-11 07:41 | Outpatient (CLI) | payer MEDICARE, MEDICAID, SELFPAY ==
--- NOTE | 2024-07-11 07:48 | CT_ITS ---
WS: [id number] LDCT LUNG CANCER SCREENING TECHNIQUE: Noncontrast CT of the chest with coronal and sagittal reformatted images. CLINICAL INFORMATION: NICOTINE DEPENDENCE COMPARISON: 10/10/2022 DLP: 42.41 mGy.cm DIvol: Mean CTDIvol: 0.70 (mGy) All CT scans at [facility] use at least one of these dose optimization techniques: automat ed exposure control; mA and/or kV adjustment per patient size (includes targeted exams where dose is matched to clinical indication); or iterative reconstruction. FINDINGS: No new suspicious pulmonary parenchymal normalities. Hyperinflation with paraseptal and centrilobular emphysematous change. Similar-appearing interstitial thickening. Coronary calcification. Aortic calcification. Small esophageal canal hernia. Adrenal gla nd thickening. Mild thoracic curve with moderate spondylitic changes. CT/CT lung screening [id number] IMPRESSION: LUNG-RADS: 1-Negative FOLLOW UP: 12 Month: Continue annual screening with LDCT
== END 2024-07-11 07:42 | disposition home or self-care (01) ==
LOC: RAD 07:42
PROVIDERS: PCP Physician Assistant; Visit Provider Physician Assistant
DX: Z12.2 Encounter for screening for malignant neoplasm of respiratory organs (principal); F17.210 Nicotine dependence, cigarettes, uncomplicated; J43.2 Centrilobular emphysema; I70.0 Atherosclerosis of aorta; E27.8 Other specified disorders of adrenal gland
CPT/HCPCS: 71271

== ENCOUNTER 2024-07-16 09:40 | Outpatient (CLI) | payer MEDICARE, MEDICAID, SELFPAY ==
--- NOTE | 2024-07-16 10:00 | USCV_ITS ---
Nano Olea Age: 58 Gender: F : 1965 Exam Date: 07/16/2024 10:03 Ordering Phys: Tarik Orourke MD ([email or web address]) Technologist: ALEX [place] [facility] [facility] [place]: BLE PAIN Risk Factors: Previous Vascular Surgery: RIGHT LEFT Waveform Velocity (cm/s) Velocity (cm/s) Waveform Triphasic Iliac Prox Triphasic 128.6 156.0 Triphasic 122.6 Iliac Mid 140.8 Triphasic Triphasic 137.1 Iliac Distal 140.8 Triphasic Triphasic 133.0 ACCT EXEC 140.0 Triphasic Triphasic 134.0 SFA Prox 109.0 Triphasic Triphasic 126.0 SFA Mid 126.0 Triphasic Triphasic 101.0 SFA Dist 110.0 Triphasic Triphasic 85.0 POP 72.0 Triphasic Biphasic 62.0 RAIMANN MACHINE OPERATOR 74.0 Biphasic Biphasic 54.0 DPA 58.0 Biphasic 1.0 LETICIA 1.0 FINDINGS Intimal thickening in the femoral arteries bilaterally. Near normal Doppler waveforms and velocities. Resting LETICIA 1.0 bilaterally CONCLUSIONS Normal resting ABIs bilaterally Near normal arterial Doppler waveforms and velocities No significant arterial obstruction, based on the above findings Dr Laquita Perez MD [facility] (Electronically Signed) Final Date: 21 July 2024 08:32 S
== END 2024-07-16 09:41 | disposition home or self-care (01) ==
LOC: RAD 09:41
PROVIDERS: PCP Physician Assistant; Visit Provider Internal Medicine Cardiovascular Disease
DX: I70.203 Unspecified atherosclerosis of native arteries of extremities, bilateral legs (principal); M79.604 Pain in right leg; M79.605 Pain in left leg
CPT/HCPCS: 93925

== ENCOUNTER 2024-07-21 14:53 | Outpatient (CLI) | payer MEDICARE, MEDICAID, SELFPAY ==
[2024-07-21 15:10] LABS: Basophils # 0.1 10^3/uL (0.0-0.1); Basophils % 1.7 %; Eosinophils # 0.1 10^3/uL (0.0-0.8); Eosinophils % 2.2 %; Hematocrit 43.9 % (36-47); Lymphocytes # 2.2 10^3/uL (0.8-4.8); Lymphocytes % 33.9 %; Mean Corpuscular HGB Conc 33.7 g/dL (30-55); Mean Corpuscular Hemoglobin 31.8 pg (27-33); Mean Corpuscular Volume 94.2 fl (85-98); Mean Platelet Volume 9.5 fL (7.4-10.4); Monocytes # 0.5 10^3/uL (0.2-0.9); Monocytes % 7.4 %; Neutrophils # 3.46 10^3/uL (1.8-7.7); Neutrophils % 54.6 %; Nucleated Red Blood Cells % 0 %; Platelet Count 239 10^3/cmm (157-399); Red Blood Count 4.66 10^6/uL (3.85-5.65); Red Cell Distribution Width 13.5 % (12.1-15.1); White Blood Count 6.34 10^3/uL (3.29-11.43)
[2024-07-21 15:22] LABS: INR 0.97 (0.83-1.21); Prothrombin Time (Patient) 13.2 Seconds (12.0-15.1)
[2024-07-21 15:27] LABS: Anion Gap 13.7 (5-19); Blood Urea Nitrogen 6 mg/dL (6-20); Calcium 9.4 mg/dL (8.5-10.5); Carbon Dioxide 27 mmol/L (22-29); Chloride 103 mmol/L (98-107); Glomerular Filtration Rate 64.3 mL/min (90-130); Glucose 108 mg/dL (65-115); Osmolality Calculated 288 mOsm/kg (285-295); Potassium 3.7 mmol/L (3.5-5.1); Sodium 140 mmol/L (136-145)
== END 2024-07-21 14:54 | disposition home or self-care (01) ==
LOC: LAB 14:54
PROVIDERS: PCP Physician Assistant; Visit Provider Internal Medicine Cardiovascular Disease
DX: I10 Essential (primary) hypertension (principal); R00.1 Bradycardia, unspecified; I20.0 Unstable angina
CPT/HCPCS: 36415; 80048; 85025; 85610

== ENCOUNTER 2024-07-22 06:00 | Outpatient (CLI) | payer MEDICARE, MEDICAID, SELFPAY ==
--- NOTE | 2024-07-21 10:06 | PC.NURSE ---
Attempted to call patient for pre op instructions, no answer, voicemail left to call back.
[2024-07-22] MEDS: aspirin 325 mg Tablet PO (06:32)
[2024-07-22] MEDS: diphenhydrAMINE 50 mg Capsule PO (06:33)
[2024-07-22 06:35] VITALS: BMI 18.7
[2024-07-22 06:36] VITALS: BP 151/75; PULSE 38; RESP 16; TEMP 36.4; O2SAT 96
--- NOTE | 2024-07-22 08:09 | PM.PN ---
Subjective Subjective: Today patient was brought in for left heart catheterization with suspicion of unstable angina however patient is poor historian, according to her since she saw me in the clinic she is not having any chest pain or chest pressure or exertional shortness of breath. She thinks that she has awaken from the sleep twice with the chest pain or chest pressure in the past. She continues to unfortunately smoke though. Patient had negative dobutamine stress test, last time when she saw me in the clinic at that time she was complaining of chest pain pressure at rest and upon exertion. She now thinks that his pains are all over the body sometime in the legs sometimes the chest sometimes the shoulder, she does have decreased pulses in the left foot but denies any claudication. After detailed discussion with the patient and her [id number] by bedside since she is not having any active symptoms now and because of the fact she has a negative dobutamine stress test I will for now cancel left heart catheterization, we will reassess her back in the clinic. Patient has been encouraged and advised in case of chest pain she should take nitroglycerin and let us know. According to her since she saw me she has not taken given nitroglycerin. Patient has been advised in case of worsening of chest pain not relieved with nitroglycerin she should go to ER Vitals/I&O/Wt Last Vital Signs Temp 97.6 F 07/22/24 06:36 Pulse 38 L 07/22/24 06:36 Resp 16 07/22/24 06:36 BP 151/75 07/22/24 06:36 Pulse Ox 96 07/22/24 06:36 O2 Del Method Room Air 07/22/24 06:36 Weight last 48 hrs Weight 109 lb Attestations Medical Necessity Statement*: Patient was discharged procedure was not performed as now she is not complaining of any chest pain and think she is feeling much better and had no problem Coding Level of Care Code Acute Code for Chg Fwdaryl
--- NOTE | 2024-07-22 08:12 | SUR.PREOP ---
PROCEDURE ABORTED Patient met with MD at 0730. After MD discussion, the case today was aborted. MD states she does not need it. Cancelled with registration.
== END 2024-07-22 06:01 | disposition home or self-care (01) ==
PROVIDERS: PCP Physician Assistant; Visit Provider Internal Medicine Cardiovascular Disease
DX: R07.9 Chest pain, unspecified (principal); Z53.9 Procedure and treatment not carried out, unspecified reason
CPT/HCPCS: 36415; J1644; J2250; J3010; J3490; J7050; Q0163

== ENCOUNTER → 2024-12-29 10:27 | Outpatient (BNVA) | payer MEDICARE, MEDICAID, SELFPAY | PROVIDERS: PCP Physician Assistant; Visit Provider Nurse Practitioner Family | DX: L23.7 Allergic contact dermatitis due to plants, except food (principal); F42.4 Excoriation (skin-picking) disorder; L81.5 Leukoderma, not elsewhere classified; L81.4 Other melanin hyperpigmentation; X32.XXXA Exposure to sunlight, initial encounter; L82.1 Other seborrheic keratosis; L57.3 Poikiloderma of Civatte; L82.0 Inflamed seborrheic keratosis; R20.9 Unspecified disturbances of skin sensation; R20.8 Other disturbances of skin sensation; L29.89 Other pruritus | CPT/HCPCS: 17110; 99204 ==

== ENCOUNTER 2025-04-21 14:36 | Outpatient (CLI) | payer MEDICARE, MEDICAID, SELFPAY ==
--- NOTE | 2025-04-21 14:39 | XR_ITS ---
WS: [id number] SCREENING DEXA SCAN LIQVID CLINICAL INFORMATION: POST MENOPAUSAL COMPARISON: None. FINDINGS: The L1-L4 bone mineral density measures 1.152 g/cm2. This corresponds to a T score score of -0.2 and Z score of 1.3. Left femoral neck bone mineral density measures 0.916 g/cm2. This corresponds to a T score of -0.7 and Z score of 0.4. Right femoral neck bone mineral density measures 0.931 g/cm2. This corresponds to a T score -0.6of and Z score of 0.5. Mean femoral neck bone mineral density measures 0.924 g/cm2. This corresponds to a T score of -0.7 and Z score of 0.5. XR/XR DEXA axial skeleton* [id number] IMPRESSION: Normal bone mineralization. Patient's FRAX calculated 10 year probability for major osteoporotic fracture i s 7.4% and osteoporotic hip fracture is 0.9%.
== END 2025-04-21 14:37 | disposition home or self-care (01) ==
LOC: RAD 14:37
PROVIDERS: PCP Physician Assistant; Visit Provider Physician Assistant
DX: Z13.820 Encounter for screening for osteoporosis (principal); Z78.0 Asymptomatic menopausal state
CPT/HCPCS: 77080

== ENCOUNTER 2025-05-13 08:15 | Outpatient (CLI) | payer MEDICARE, MEDICAID, SELFPAY ==
--- NOTE | 2025-05-13 08:25 | FL_ITS ---
WS: [id number] Barium swallow and esophagram, 05/13/2025 Clinical Data: DYSPHAGIA Comparison: None. Fluoroscopy time: 1min [id number] # of spot films: 48 Findings: The patient swallowed the thick and thin barium, and it flowed through the hypopharynx without hesitation. No stricture, mass, polyp or erosion was seen. There is minimal posterior impingement by osteoarthritis of the cervical vertebral bodies. No aspiration or penetration occurred. The barium entered the esophagus and there was normal motility throughout. No hiatal hernia, reflux, stricture, polyp, mass, erosion or ulcer was noted. The barium flowed normally into the stomach. FL/FL barium swallow [id number] Impression: Normal esophagram.
== END 2025-05-13 08:16 | disposition home or self-care (01) ==
LOC: RAD 08:19
PROVIDERS: PCP Physician Assistant; Visit Provider Specialist
DX: R13.10 Dysphagia, unspecified (principal)
CPT/HCPCS: 74220

== ENCOUNTER 2025-05-14 06:45 | Outpatient (CLI) | payer MEDICARE, MEDICAID, SELFPAY ==
--- NOTE | 2025-05-14 06:54 | CT_ITS ---
WS: [id number] CT NECK TECHNIQUE: Contrast-enhanced CT of the neck with coronal and sagittal reformatted images. CLINICAL INFORMATION: DYSPHAGIA COMPARISON: None. DLP: 131.[address] scans at [facility] use at least one of these dose optimization techniques: automated exposure control; mA and/or kV adjustment per patient size (includes targeted exams where dose is matched to clinical indication); or iterative reconstruction. 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 Paranasal sinuses are well aerated. Chronic sclerosis with opacification and under pneumatization of the mastoid air cells. Normal posterior nasopharynx. Swallowing artifact degrades some images. Asymmetric supraglottic larynx with secretions and soft tissue thickening in the LEFT piriform sinus. Medial deviation of the RIGHT true vocal cord suspicious for vocal cord paralysis. Ballooning of the RIGHT laryngeal ventricle. Medial rotation of the arytenoid. Subglottic airway is patent. Aortic calcification. Proximal great vessels are patent. Emphysematous changes in the lung apices. Circumferential thickening of the thoracic esophagus partially visualized. Recommend correlation for esophagitis. This can be further evaluated with endoscopy. Tiny diverticulum RIGHT eccentric anterior esophagus at the thoracic inlet. See bookmarked images. Cervical curve. Spondylitic changes cervical spine. Parotid glands are normal. Normal submandibular glands. No cervical lymphadenopathy. CT/CT neck w con* [id number] IMPRESSION: 1. Suspected RIGHT vocal cord paralysis. Recommend correlation with endoscopy. 2. Diffuse circumferential thickening of the thoracic esophagus. Recommend cor relation for esophagitis. This could be further evaluated endoscopy. 3. Tiny air-filled diverticulum extending off the RIGHT anterior esophagus at the thoracic inlet. See bookmarked images. This is probably incidental. 4. Chronic LEFT lip/palate deformity 5. Vascular calcification. 6. Mild narrowing of the RIGHT greater than LEFT proximal vertebral arteries w ith vascular calcification. Intracranial vascular calcification partially visua lized. 7. Bovine arch.
[2025-05-14] MEDS: iohexol 350 mg/mL 500 mL Btl (per mL) IV (07:20)
== END 2025-05-14 06:46 | disposition home or self-care (01) ==
LOC: RAD 06:46
PROVIDERS: PCP Physician Assistant; Visit Provider Specialist
DX: R13.10 Dysphagia, unspecified (principal); Q37.9 Unspecified cleft palate with unilateral cleft lip; H70.10 Chronic mastoiditis, unspecified ear; M46.92 Unspecified inflammatory spondylopathy, cervical region
CPT/HCPCS: 70491

== ENCOUNTER 2025-05-26 09:47 | Outpatient (CLI) | payer MEDICARE, MEDICAID, SELFPAY ==
--- NOTE | 2025-05-26 09:53 | FL_ITS ---
WS: [id number] Exam: FL barium swallow modifd [id number] Date/Time of Exam: 05/26/2025 9:57 AM Reason For Exam: Other dysphagia Fluoroscopy time: 3min [id number] minutes # of spot films: Modified barium swallow was performed in conjunction with the speech therapy service. Oral pharyngeal phase of swallowing demonstrated no aspiration. There was mild penetration into the laryngeal inlet when the patient ingested thin liquid barium. The patient tolerated the remaining barium mixture foodstuffs without aspiration or penetration. Moderate hypomotility of the mid and lower esophagus was identified when the patient ingested a barium tablet. The tablet was propelled into the stomach with additional swallows of thin liquid barium. FL/FL barium swallow modifd [id number] IMPRESSION: 1. Minimal penetration with thin liquid. 2. No aspiration. 3. Moderate hypomotility of the mid and lower esophagus. See above. A separate report with recommendations will follow from the speech therapy serv ice.
== END 2025-05-26 09:48 | disposition home or self-care (01) ==
LOC: RAD 09:48
PROVIDERS: PCP Physician Assistant; Visit Provider Specialist
DX: R13.19 Other dysphagia (principal); J37.0 Chronic laryngitis; K22.89 Other specified disease of esophagus
CPT/HCPCS: 74230; 92611

== ENCOUNTER 2025-07-13 06:56 | Outpatient (CLI) | payer MEDICARE, MEDICAID, SELFPAY ==
--- NOTE | 2025-07-13 07:11 | CT_ITS ---
WS: [id number] LDCT LUNG CANCER SCREENING HISTORY: NICOTINE DEPENDENCE TECHNIQUE: Axial imaging performed from the apices to 1 cm below the costophrenic angles. Coronal and sagittal reformats are submitted with axial MIP series. All CT scans at [facility] use at least one of these dose optimization techniques: automated exposure control; mA and/or kV adjustment per patient size (includes targeted exams where dose is matched to clinical indication); or iterative reconstruction. DLP: 43.00 mGy.cm DIvol: Mean CTDIvol: 0.70 (mGy) COMPARISON: 07/11/2024 Diagnostic quality: Satisfactory Lungs: Marked pulmonary hyperinflation. Stable 3 mm superior LEFT fissural nodule. Peripheral interstitial thickening is reidentified. New 10 mm pulmonary nodule RIGHT upper lobe just above the fissure is identified. Increased opacification surrounding the dominant nodule. Subpleural fibrotic changes g reatest in the upper RIGHT thorax. Additional opacification of the azygos esophageal recess. This opacification has slightly increased since 07/11/2024. Heart: Normal size heart with no pericardial effusion.. Other findings: LEFT axillary lymph node measures 11.8 mm. No change in size. Small mediastinal and hilar lymph nodes. Mild atherosclerotic changes within the aorta. Mild pulmonary hypertension. Small hiatal hernia. No adrenal mass. Suprarenal aortic calcification. Scoliosis thoracic spine. CT/CT lung screening [id number] IMPRESSION: LUNG-RADS: 4A-Probably Suspicious FOLLOW UP: PET/CT recommended OTHER FINDINGS (S MODIFIER): None.
== END 2025-07-13 06:57 | disposition home or self-care (01) ==
LOC: RAD 06:57
PROVIDERS: PCP Physician Assistant; Visit Provider Physician Assistant
DX: Z12.2 Encounter for screening for malignant neoplasm of respiratory organs (principal); F17.210 Nicotine dependence, cigarettes, uncomplicated; R91.8 Other nonspecific abnormal finding of lung field; I70.0 Atherosclerosis of aorta; M41.84 Other forms of scoliosis, thoracic region
CPT/HCPCS: 71271

== ENCOUNTER 2025-07-15 11:27 | Outpatient (CLI) | payer MEDICARE, MEDICAID, SELFPAY ==
--- NOTE | 2025-07-15 11:33 | MM_ITS ---
WS: [id number] BILATERAL 3D TOMOSYNTHESIS DIGITAL SCREENING MAMMOGRAPHY WITH CAD CLINICAL INFORMATION: SCREENING HISTORY: Screening mammogram. No current complaints. COMPARISON: 2023 TECHNIQUE: Bilateral CC and MLO views. FINDINGS: The breasts are composed of heterogeneous fibroglandular density tissue, which can limit the detection of small underlying mass lesions. No suspicious mass, asymmetry, calcifications, or architectural distortion. No evidence of malignancy. Vascular calcification. Punctate and lucent centered calcifications. Dystrophic calcifications. MM/MM [facility] tomosynthesis [id number] IMPRESSION: DENSITY: The breasts are heterogeneously dense, which may obscure small masses. BI-RADS: 2 - Benign FOLLOW UP: 1 Year Follow-up Recommend return to annual screening mammography.
== END 2025-07-15 11:28 | disposition home or self-care (01) ==
LOC: RAD 11:29
PROVIDERS: PCP Physician Assistant; Visit Provider Physician Assistant
DX: Z12.31 Encounter for screening mammogram for malignant neoplasm of breast (principal); R92.333 Mammographic heterogeneous density, bilateral breasts; R92.323 Mammographic fibroglandular density, bilateral breasts; R92.1 Mammographic calcification found on diagnostic imaging of breast
CPT/HCPCS: 77063; 77067

== ENCOUNTER 2025-07-24 11:30 | Outpatient (CLI) | payer MEDICARE, MEDICAID, SELFPAY ==
--- NOTE | 2025-07-24 11:32 | PETR_ITS ---
PROCEDURE INFORMATION: Exam: PET/CT Skull Base to Mid-thigh Exam date and time: 07/24/2025 12:56 PM Age: 59 years old Clinical indication: Abnormal findings; Pulmonary nodule right LABS AND CLINICAL REPORTS: Glucose: 112 mg/dl Treatment strategy for malignancy (PET staging): Initial Staging (PI) TECHNIQUE: Imaging protocol: Following at least four-hour fasting and following the injection of radiopharmaceutical, low dose CT images were obtained. Then, PET images were obtained. Attenuation corrected images were constructed using the CT scan. Fused images of PET and CT were reviewed. The standardized uptake values (SUV) reported below are maximum values within a region of interest, expressed in gm/ml. Exam includes orbital meatal line to mid-thigh. SUV normalization method: BodyWeight Radiopharmaceutical: 10.3 mCi F-18 FDG (Fluorodeoxyglucose), IV. Time of imaging post radiopharmaceutical administration: 45 minutes Injection site: right ac COMPARISON: CT lung screening [id number] 07/13/2025 7:21 AM FINDINGS: Brain: Visualized brain has normal physiologic uptake. Pharynx: No abnormal uptake. Larynx: Nonspecific diffuse vocal cord and laryngeal uptake, likely due to vocal cord use. No focal increased uptake. Lungs, pleura and trachea: Posterior right upper lobe solid, mildly ill-defined pulmonary nodule increased in size now measuring 2.0 x 1.8 cm (previously 1.2 x 1.2 cm on 07/13/2025. The nodule has avid increased FDG uptake, maximum SUV 9.3. There is mild increased surrounding ground-glass attenuation. Increased uptake involves the areas of ground-glass and extends into the pleural surface. There are additional right perihilar/central right upper lobe pulmonary nodules measuring up to 0.5 cm, maximum SUV 8.0 (see for example series 202, images 99 and 101). Stable non FDG avid 6 mm subpleural nodule in the right posterior apex. No abnormal FDG uptake in the left lung. Heart: Normal physiologic uptake. Scattered coronary artery calcifications. Mediastinal space: No abnormal uptake. Liver: No abnormal uptake. Gallbladder and biliary ducts: No abnormal uptake. Pancreas: No abnormal uptake. Spleen: No abnormal uptake. Adrenal glands: No abnormal uptake. Kidneys and ureters: Normal physiologic uptake. Stomach and bowel: No abnormal uptake. Vasculature: The vasculature demonstrates diffuse moderate atherosclerotic calcification. No aneurysm. Lymph nodes: Right hilar lymphadenopathy measuring up to 1.7 cm in short axis with increased FDG uptake, maximum SUV 8.8. Nonspecific focal increased uptake in the retroesophageal region inferior to the durga, maximum SUV 3.5. Nonspecific, nonenlarged FDG avid right level 2B lymph node measuring 6 mm in long axis, maximum SUV 3.8. Skeleton: No abnormal uptake in the visualized axial and appendicular skeleton. Mild thoracic dextroscoliosis. Soft tissues: Mild nonspecific increased uptake along the neck musculature likely due to muscle strain. No focal suspicious uptake. METRICS: Mediastinal blood pool: Mean SUV of 2.0 Liver uptake: Mean SUV of 2.3 PET/PET skull to thigh INIT [id number] IMPRESSION: 1. Further increase in size of an FDG avid posterior right upper lobe solid, mildly ill-defined pulmonary nodule now measuring up to 2.0 cm (previously 1.2 cm), highly suspicious for pulmonary neoplasm. Consider tissue correlation. 2. Overall interval increase in surrounding peripheral ground-glass, as well as scattered FDG avid subcentimeter nodules in the right perihilar region/medial right upper lobe, suspicious for local metastases. 3. Bulky FDG avid right hilar lymphadenopathy, presumed metastatic. 4. Nonspecific focal increased uptake in the retroesophageal region inferior to the durga. This remains indeterminate. Close attention on interval follow-up is recommended. 5. Nonspecific, nonenlarged FDG avid right level 2B lymph node, which may be reactive. Close attention on interval follow-up is recommended. 6. No functional or anatomic evidence of metastatic disease within the abdomen or pelvis or osseous structures.
== END 2025-07-24 11:31 | disposition home or self-care (01) ==
PROVIDERS: PCP Physician Assistant; Visit Provider Physician Assistant
DX: R91.1 Solitary pulmonary nodule (principal); J38.3 Other diseases of vocal cords; R91.8 Other nonspecific abnormal finding of lung field; I25.84 Coronary atherosclerosis due to calcified coronary lesion; I70.8 Atherosclerosis of other arteries; R59.0 Localized enlarged lymph nodes; M41.34 Thoracogenic scoliosis, thoracic region; M79.9 Soft tissue disorder, unspecified
CPT/HCPCS: 78815; A9552

== ENCOUNTER → 2025-07-30 08:17 | Outpatient (BNVA) | payer MEDICARE, MEDICAID, SELFPAY | PROVIDERS: PCP Physician Assistant; Referring Provider Physician Assistant; Visit Provider Internal Medicine | DX: R91.1 Solitary pulmonary nodule (principal); R91.8 Other nonspecific abnormal finding of lung field; F17.210 Nicotine dependence, cigarettes, uncomplicated | CPT/HCPCS: 99204; Q3014 ==

== ENCOUNTER 2025-08-05 08:14 | Day surgery (SDC) | payer MEDICARE, MEDICAID, SELFPAY ==
[2025-08-05 08:43] VITALS: BP 136/70; PULSE 42; RESP 17; TEMP 36.3; O2SAT 95; BMI 19.7
--- NOTE | 2025-08-05 09:20 | ECG_ITS ---
[facility] Date: 2025-[facility]05 Pat Name: Nano Olea Department: Room: Gender: Female Billing Administrator: : 1965 Requested By: Arvind Musa Order Number: [id number] Martin MD: Laquita Perez M.D. Measurements Intervals [place] Rate: 33 P: 84 ND: 201 QRS: 17 QRSD: 110 T: 71 QT: 557 QTc: 414 Interpretive Statements SINUS BRADYCARDIA POSSIBLE RIGHT VENTRICULAR CONDUCTION DELAY [RSR (QR) IN V1/V2] PROLONGED QT INTERVAL CRITICAL TEST RESULT Compared to ECG 03/25/2024 05:40:19 ST (T wave) deviation no longer present Electronically Signed On 08-05-2025 23:54:09 TERMINAL CLERK by Laquita Perez M.D. [email or web address] [email or web address]
[2025-08-05 09:36] LABS: Hematocrit 38.5 % (36-47); Hemoglobin 13.20 g/dL (11.27-16.99); Mean Corpuscular HGB Conc 34.3 g/dL (30-55); Mean Corpuscular Hemoglobin 32.1 pg (27-33); Mean Corpuscular Volume 93.7 fl (85-98); Nucleated Red Blood Cells % 0 %; Platelet Count 258 10^3/cmm (157-399); Red Blood Count 4.11 10^6/uL (3.85-5.65); White Blood Count 5.19 10^3/uL (3.29-11.43)
[2025-08-05 09:46] LABS: INR 0.92 (0.8-1.2); Prothrombin Time 13.00 SECONDS (12.1-14.9)
--- NOTE | 2025-08-05 12:02 | PC.NURSE ---
On admission assessment this nurse observed the patient had a low heart rate. Dr. Acuña was notified and he ordered an EKG. The EKG noted the HR to be 33. Dr. Acuña called report to the ED and we both transferred the patient there.
== END 2025-08-05 09:55 | disposition home or self-care (01) ==
LOC: GILAB 08:17
PROVIDERS: PCP Physician Assistant; Visit Provider Internal Medicine
PROC: (CPT 31624; principal; 2025-08-05 10:30)
PROC: 0BJ08ZZ Inspection of Tracheobronchial Tree, Via Natural or Artificial Opening Endoscopic (ICD-10-PCS; CPT 31622; 2025-08-05 10:30)
PROC: BB4BZZZ Ultrasonography of Pleura (ICD-10-PCS; 2025-08-05 10:30)
DX: Z53.8 Procedure and treatment not carried out for other reasons (principal)
CPT/HCPCS: 85025; 85610; 93005; J7030

== ENCOUNTER 2025-08-05 09:51 | Emergency (ER) | payer MEDICARE, MEDICAID, SELFPAY ==
[2025-08-05] VITALS (7 sets, daily range): BP systolic 117–177; BP diastolic 57–89; PULSE 35–61; RESP 16–25; TEMP 36.7; O2SAT 94–99; BMI 19.7
--- NOTE | 2025-08-05 10:04 | ECG_ITS ---
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 Measurements Intervals [place] Rate: 44 P: 81 [place]: 186 QRS: 11 QRSD: 104 T: 68 QT: 516 QTc: 445 Interpretive Statements SINUS BRADYCARDIA WITH SINUS ARRHYTHMIA POSSIBLE RIGHT VENTRICULAR CONDUCTION DELAY [RSR (QR) IN V1/V2] Compared to ECG 08/05/2025 09:28:57 Prolonged QT interval no longer present Electronically Signed On 08-05-2025 23:46:10 GMAT INSTRUCTOR by Laquita Perez M.D. [email or web address] [id number]
--- NOTE | 2025-08-05 10:04 | XR_ITS ---
WS: [id number] Portable AP upright chest, 08/05/2025 Clinical Data: symptomatic anemia Comparison: Portable chest, 03/22/2024, PET scan, 07/24/2025 Findings: There is a faint nodule overlying the right midlung measuring 1.5 cm. No masses or effusions are seen. The heart is normal. The pulmonary vascularity is not increased. No pneumonia or pneumothorax is seen. The diaphragms are flattened. There are monitor leads on the chest wall. XR/XR chest 1V portable [id number] Impression: 1. Small, 1.5 cm nodule overlying the right midlung which may correspond to nod ule seen on PET scan. 2. Hyperinflation
--- OUTSIDE RECORDS SUMMARY | 2025-08-05 10:06 | XMS_ITS | Data Portability ---
Author Organization [facility] Sina Estrada [facility] Address [address] [place] [id number] Care Team Providers Care Centura Technical Lead Senior Developer Name Role Phone ORTIZ RUIZ Primary Care Provider Unavailabl e Assessment No assessment recorded. Plan of Treatment Reminders Order Date Submit Date Provider Last Modified By Organization Details Last Modified Time Details Appointments None recorded. Lab urinalysis, complete 2024 025 [place] [facility], [address] [place] [address], [facility], [place], [address], 11:33:09 culture, urine 2024 025 [facility], [address] [place] [address], [address], [place], [address], 23:10:08 pap, LB 2024 025 [facility], [address] [place] [address], [address], [place], [address], 13:47:31 unlisted lab - sureswab(R) advanced vaginitis plus, tma 2024 025 [facility], [address] [place] [address], [address], [place], [address], 23:10:06 urinalysis, dipstick 2024 025 [email or web address] 47 [facility] ([facility]), [address] [place], [address], 5 07:53:59 culture, urine 2024 025 LIUDMILARoad Hero [facility], [address] [address], [address] [place], [address], 00:08:45 Referral gastroenter ologist referral 2024 025 [facility] Not available 14:30:20 Procedures None recorded. Surgeries None recorded. Imaging LDCT, chest, for lung cancer screening [address], [address] [place] [address], [address], 11:35:28 MAMMO, screening, digital, bilateral 2024 025 [facility], [address] [place] [address], [address], 08:30:45 nerve conduction study 2024 025 [place] [address] 2 [facility], [address] [place] [address], [address], 5 16:32:01 DEXA - ozh 2024 025 [facility] (Scheduling Orders), [address] [place], [address], 5 09:03:06 US, bladder - 56[address] Pre and Post void bladder 2024 025 [facility], [address] [place], [address], 5 13:15:07 Medication Orders lisinopril 20 mg tablet 2024 025 LIUDMILA [facility], [address] [place] [address], [address], 5 15:20:26 lisinopril 20 mg tablet [address], [address], 5 18:24:37 betamethaso ne acetate and sodium phos 6 mg/mL suspension for injection 2024 025 [email or web address] 1 Not available 08:55:35 triamcinolo ne acetonide 0.1 % topical cream 2024 025 [facility], [address] [place] [address], [address], 17:54:40 prednisone 20 mg tablet [address] [facility], [address] [place] [address], [address], 5 08:57:36 Bactrim DS 800 mg-160 mg tablet [address], [address], 5 05:01:03 Patient TargetsNo targets recorded. Patient InstructionsNo instructions recorded. Reason for Referral Interpretive Naturalist Referral for Screening for malignant neoplasm of colon Referring Physician: Ortiz Ruiz, Family Medicine, Encounter Date: 07/09/2025 Results Created Date Observation Date Name Description Value Unit Range Abnormal Flag Note LastModifiedBy Organization Detail LastModifiedTime 02/17/20 25 02/17/2025 CULTU RE, URINE , ROUTI NE culture, urine, routine SEE NOTE CULTU RE, URINE , ROUTI NE Micro Numbe r: [id number] Test Statu s: Final Speci men Sourc e: Urine Speci men Quali ty: Adequ ate Resul t: Mixed genit al sveta isola cyndy. These super ficia l bacte marce are not indic ative of a urina ry tract infec tion. No furth er organ ism ident ifica tion is warra nted on this speci men. If clini sharif indic ated, recol lect clean -catc h, mid-s tream urine and trans amrik immed iatel y to Urine Cultu re Trans port Tube. Not Available [facility] [address] [place], [address], 02/18/2025 00:08:44 02/17/20 25 02/16/2025 urina lysis , dipst ick Color Pale Yellow Not Available [facility] [address] [place], [address], 02/16/2025 10:25:39 02/17/20 25 02/16/2025 urina lysis , dipst ick Appearance Cloudy Not Available [facility] [address] [place], [address], 02/16/2025 10:25:39 02/17/20 25 02/16/2025 urina lysis , dipst ick Glucose Negati ve Not Available [facility] ([facility]) [address] [place], [address], 02/16/2025 10:25:39 02/17/20 25 02/16/2025 urina lysis , dipst ick Bilirubin Negati ve Not Available [facility] ([facility]) [address] [place], [address], 02/16/2025 10:25:39 02/17/20 25 02/16/2025 urina lysis , dipst ick Ketone Negati ve Not Available [facility] ([facility]) [address] [place], [address], 02/16/2025 10:25:39 02/17/20 25 02/16/2025 urina lysis , dipst ick Specific [place] 1.015 Not Available [facility] ( [facility]) [address] [place], [address], 02/16/2025 10:25:39 02/17/20 25 02/16/2025 urina lysis , dipst ick Blood Large Not Available [facility] ([facility]) [address] [place], [address], 02/16/2025 10:25:39 02/17/20 25 02/16/2025 urina lysis , dipst ick pH 6.0 Not Available [facility] ([facility]) [address] [place], [address], 02/16/2025 10:25:39 02/17/20 25 02/16/2025 urina lysis , dipst ick Protein 100 Not Available [facility] ([facility]) [address] [place], [address], 02/16/2025 10:25:39 02/17/2002/16/2025 urina lysis , dipst ick Urobilinogen .2 Not Available [facility] ([facility]) [address] [place], [address], 02/16/2025 10:25:39 02/17/2002/16/2025 urina lysis , dipst ick Nitrite negati ve Not Available [facility] ([facility]) [address] [place], [address], 02/16/2025 10:25:39 02/17/20 25 02/16/2025 urina lysis , dipst ick Leukocytes Large Not Available [facility] ([facility]) [address] [place], [address], 02/16/2025 10:25:39 04/09/20 25 04/09/2025 URINA LYSIS WITH MICRO color YELLOW Not Available [facility] [address], [place], [address], 04/09/2025 11:33:09 04/09/20 25 04/09/2025 URINA LYSIS WITH MICRO clarity CLEAR Not Available [facility] [address], [place], [address], 04/09/2025 11:33:09 04/09/20 25 04/09/2025 URINA LYSIS WITH MICRO glu NEGATI VE Not Available [facility] [address], [place], [address], 04/09/2025 11:33:09 04/09/20 25 04/09/2025 URINA LYSIS WITH MICRO bili NEGATI VE Not Available [facility] [address], [place], [address], 04/09/2025 11:33:09 04/09/20 25 04/09/2025 URINA LYSIS WITH MICRO ket NEGATI VE Not Available [facility] [address], [place], [address], 04/09/2025 11:33:09 04/09/20 25 04/09/2025 URINA LYSIS WITH MICRO S.g 1.010 1.005- 1.025 Not Available [facility] [address], [place], [address], 04/09/2025 11:33:09 04/09/20 25 04/09/2025 URINA LYSIS WITH MICRO pH 5.5 5.0-7. 0 Not Available [facility] [address], [place], [address], 04/09/2025 11:33:09 04/09/20 25 04/09/2025 URINA LYSIS WITH MICRO pro NEGATI VE Not Available [facility] [address], [place], [address], 04/09/2025 11:33:09 04/09/20 25 04/09/2025 URINA LYSIS WITH MICRO uro 0.2 E.U./D L Not Available [facility] [address], [place], [address], 04/09/2025 11:33:09 04/09/20 25 04/09/2025 URINA LYSIS WITH MICRO nit NEGATI VE Not Available [facility] [address], [place], [address], 04/09/2025 11:33:09 04/09/20 25 04/09/2025 URINA LYSIS WITH MICRO blo NEGATI VE Not Available [facility] [address], [place], [address], 04/09/2025 11:33:09 04/09/20 25 04/09/2025 URINA LYSIS WITH MICRO maryanne NEGATI VE Not Available [facility] [address], [place], [address], 04/09/2025 11:33:09 04/09/20 25 04/09/2025 URINA LYSIS WITH MICRO WBC NEGATI VE Not Available [facility] [address], [place], [address], 04/09/2025 11:33:09 04/09/20 25 04/09/2025 URINA LYSIS WITH MICRO RBC NEGATI VE Not Available [facility] [address], [place], [address], 04/09/2025 11:33:09 04/09/20 25 04/09/2025 URINA LYSIS WITH MICRO epi cells 0-1 Not Available [facility] [address] [facility] [address], [place], [address], 04/09/2025 11:33:09 04/09/20 25 04/09/2025 URINA LYSIS WITH MICRO bacteria NEGATI VE Not Available [facility] [address] [facility] [address], [place], [address], 04/09/2025 11:33:09 04/09/20 25 04/09/2025 URINA LYSIS WITH MICRO other NONE Not Available [facility] [address] [facility] [address], [place], [address], 04/09/2025 11:33:09 04/09/20 25 04/10/2025 SURES WAB(R ) ADVAN BRISSA VAGIN ITIS PLUS, TMA sureswab(R) adv bacterial vaginosis (bv), tma POSITI VE negati ve abnormal Not Available [address] [address] [place], [address], 04/10/2025 23:10:06 04/09/20 25 04/10/2025 SURES WAB(R ) ADVAN BRISSA VAGIN ITIS PLUS, TMA peña species NOT DETECT ED not detect ed normal Not Available [address] [address] [place], [address], 04/10/2025 23:10:06 04/09/20 25 04/10/2025 SURES WAB(R ) ADVAN BRISSA VAGIN ITIS PLUS, TMA peña glabrata NOT DETECT ED not detect ed normal [place] da speci es C. albic ans, C. tropi calis , C. parap bharti is, and/o r C. dubli niens is can be detec cyndy, but not diffe renti ated, in the [place] da spp. resul t. Not Available [address] [address] [place], [address], 04/10/2025 23:10:06 04/09/20 25 04/10/2025 SURES WAB(R ) ADVAN BRISSA VAGIN ITIS PLUS, TMA trichomonas vaginalis (TV), tma NOT DETECT ED not detect ed normal Not Available [address], [address], 04/10/2025 23:10:06 04/09/20 25 04/10/2025 SURES WAB(R ) ADVAN BRISSA VAGIN ITIS PLUS, TMA chlamydia trachomatis RNA, tma, urogenital NOT DETECT ED not detect ed normal Not Available [facility] [address], [address], 04/10/2025 23:10:06 04/09/20 25 04/10/2025 SURES WAB(R ) ADVAN BRISSA VAGIN ITIS PLUS, TMA neisseria gonorrhoeae RNA, tma, urogenital NOT DETECT ED not detect ed normal For addit ional irvin braun refer to https ://ed ati on.qu [employer]/f aq/FA Q154 (This link is being provi ded for cassandra wasserman/ maximilian braun ses only. ) Not Available [address], [address], 04/10/2025 23:10:06 04/09/2004/10/2025 CULTU RE, URINE , ROUTI NE culture, urine, routine SEE NOTE CULTU RE, URINE , ROUTI NE Micro Numbe r: [id number] Test Statu s: Final Speci men Sourc e: Urine , clean catch Speci men Quali ty: Adequ ate Resul t: No Growt h Not Available [address], [address], 04/10/2025 23:10:08 04/09/20 25 04/13/2025 IMAGE -GUID ED PAP W/AGE BASED SCR ABDOULAYE COLS comment This order for age-b ased cervi rosa maria cance r and STI scree jolie follo ws ACOG guide lines (PB 168, 140, FAQ07 1). See indiv idual assay s for perfo rming site locat ion. Not Available [address] [address] [place], [address], 04/13/2025 13:47:31 04/09/20 25 04/13/2025 IMAGE -GUID ED PAP W/AGE BASED SCR ABDOULAYE COLS clinical information: normal Hilda l exam Not Available [address] [address] [place], [address], 04/13/2025 13:47:31 04/09/2004/13/2025 IMAGE -GUID ED PAP W/AGE BASED SCR ABDOULAYE COLS LMP: normal NONE GIVEN Not Available [address] [place], [address], 04/13/2025 13:47:31 04/09/20 25 04/13/2025 IMAGE -GUID ED PAP W/AGE BASED SCR ABDOULAYE COLS prev. Pap: normal NONE GIVEN Not Available [address] [address] [place], [address], 04/13/2025 13:47:31 04/09/20 25 04/13/2025 IMAGE -GUID ED PAP W/AGE BASED SCR ABDOULAYE COLS prev. BX: normal NONE GIVEN Not Available [address] [address] [place], [address], 04/13/2025 13:47:31 04/09/20 25 04/13/2025 IMAGE -GUID ED PAP W/AGE BASED SCR ABDOULAYE COLS source: normal Cervi x, Endoc ervix Not Available [address], [address], 04/13/2025 13:47:31 04/09/20 25 04/13/2025 IMAGE -GUID ED PAP W/AGE BASED SCR ABDOULAYE COLS statement of adequacy: normal Satis facto ry for evalu ation . Endoc ervic al/tr ansfo rmati on zone compo nent prese nt. Not Available [address] [address] [place], [address], 04/13/2025 13:47:31 04/09/20 25 04/13/2025 IMAGE -GUID ED PAP W/AGE BASED SCR ABDOULAYE COLS interpretati on/result: normal Cytol ogy Resul ts: Negat kelley for intra epith elial lesio n or malig naresh . Not Available [address] [address] [place], [address], 04/13/2025 13:47:31 04/09/20 25 04/13/2025 IMAGE -GUID ED PAP W/AGE BASED SCR ABDOULAYE COLS comment: normal This Pap test has been evalu ated with the ThinP rep(R ) Imagi ng Syste m. Not Available [address] [address] [place], [address], 04/13/2025 13:47:31 04/09/20 25 04/13/2025 IMAGE -GUID ED PAP W/AGE BASED SCR ABDOULAYE COLS cytotechnolo gist: normal BKA, CT( CP) CT scree jolie locat ion: [address] [address] [place] [address] Not Available [address] [address] [place], [address], 04/13/2025 13:47:31 04/09/2004/13/2025 IMAGE -GUID ED PAP W/AGE BASED SCR ABDOULAYE COLS comment EXPLA NATOR Y NOTE: The Pap is a scree jolie test for cervi rosa maria cance r. It is not a diagn ostic test and is subje ct to false negat kelley and false posit kelley resul ts. It is most relia ble when a satis facto ry sampl e, regul shalonda obtai murphy, is submi tted with relev ant clini rosa maria findi ngs and histo ry, and when the Pap resul t is evalu ated along with histo sivakumar and curre nt clini rosa maria infor castro wasserman. Not Available [facility] [address] [place], [address], 04/13/2025 13:47:31 04/09/20 25 04/13/2025 IMAGE -GUID ED PAP W/AGE BASED SCR ABDOULAYE COLS HPV MRNA E6/E7 NOT DETECT ED not detect ed normal Metho dolog y: Trans cript ion-M ediat ed Ampli ficat ion This assay detec ts E6/E7 viral messe nger RNA (mRNA ) from 14 high- risk HPV types (16,1 8,31, 33,35 ,39,4 5,51, 52,56 ,58,5 9,66, 68). Cervi rosa maria sourc es are requi red for HPV testi ng. If a vagin al sourc e from a patie nt who has had a total hyste recto my with remov al of cervi x was submi tted, pleas e conta ct the testi ng labor atory for alter nativ e testi ng optio ns. For addit ional infor irvin schmidt e refer to http: //[facility] lauro wasserman.que stdia gnost ics.c om/fa q/FAQ 129v1 (This link if provi ded for infor castro wasserman/ maximilian walker purpo ses only. ) Not Available [facility] [address] [address], [place], [address], 04/13/2025 13:47:31 04/21/20 25 04/21/2025 DEXA No observ ation record ed. [email or web address] [facility] [address] [place], [address], 04/23/2025 16:05:58 05/15/20 25 05/12/2025 , guillermo er No observ ation record ed. [email or web address] [facility] [address] [place], [address], 05/15/2025 14:34:26 07/13/20 25 07/13/2025 LDCT, chest , for lung cance r morena dave No observ ation record ed. [facility] [address] [place], [address], 07/14/2025 17:07:16 07/15/2007/15/2025 MAMMO , morena dave, digit al, bilat eral No observ ation record ed. [facility] [address] [place], [address], 07/16/2025 08:16:55 07/27/2007/24/2025 PET-C T, skull base to mid-t high scan No observ ation record ed. [facility] [address] [place], [address], 07/28/2025 12:47:37 Result Notes None recorded. Problems Name Problem SNOMED Code Status Onset Date Resolution Date Notes Provider Name and Address Organization Details Recorded Time Chronic obstruct kelley pulmonar y disease 52810446 Active 2022 COPD (CHRONIC OBSTRUCTI VE PULMONARY DISEASE); Recorded 3 6:52AM by Gwen Verma LPN, Office Visit; Promoted; acuity set as *; [facility] 5 08:48:08 Gastroes ophageal reflux disease 121925713 Active 2022 GERD (GASTROES OPHAGEAL REFLUX DISEASE); Recorded 3 6:52AM by Gwen Verma LPN, Office Visit; Promoted; acuity set as *; [facility] 5 08:56:37 Hypothyr oidism 75647605 Active 2022 HYPOTHYRO IDISM; Recorded 3 6:52AM by Gwen Verma LPN, Office Visit; Promoted; acuity set as *; [facility] 5 08:56:49 Harmful pattern of use of alcohol 95205463 Active 2022 ALCOHOL ABUSE, UNCOMPLIC ATED; Recorded 3 6:52AM by Gwen Verma LPN, Office Visit; Promoted; acuity set as *; [facility] 5 08:47:41 Nicotine dependen ce 14000080 Active 2022 TOBACCO DEPENDENC E; Recorded 3 6:52AM by Gwen Verma LPN, Office Visit; Promoted; acuity set as *; [facility], Kamila.[facility] 5 08:56:51 Acute exacerba tion of chronic obstruct kelley pulmonar y disease 389966862 Completed 202211/27/2024 COPD EXACERBAT ION; Impressio n: Take meds as directed, push fluids, call or RTC for new or worsening sx.; Recorded 3 6:52AM by Gwen Verma LPN, Office Visit; Promoted; acuity set as *; COPD EXACERBAT ION - Status is Inactive; Recorded 3 12:42PM by Ortiz Ruiz PA-C, Annotatio n/Parker m; Promoted; acuity set as *; ; Start Date : 3 Removal Reason: resolved [facility]ila.[facility] 5 08:48:25 Hyperten sive disorder 67905838 Active 2022 HTN (HYPERTEN SONIA); Recorded 3 6:52AM by Gwen Verma LPN, Office Visit; Promoted; acuity set as *; [facility] 5 08:56:46 Foot pain 01847340 Active 2022 GWEN LUEFFNER null, [facility] 5 08:56:34 Depressi ve disorder 57880061 Active 2022 GWEN NAYLANER null, [facility] 5 08:48:47 Allergic rhinitis 47570451 Active 2022 GWEN NAYLAJENNY null, [facility] 5 08:47:45 Urge incontin ence of urine 50969354 Active 2022 GWEN NAYLAJENNY null, [facility] 5 08:57:11 Chronic abdomina l pain 002188894 Active 2023 GWEN NAYLAJENNY null, [facility] 5 08:48:03 Erosive esophagi tis 34714337 Active 2023 GWEN LUCI null, [facility] 5 08:49:02 Serous otitis media 85719791 Completed 202311/27/2024 Removal Reason: resolved GWEN NAYLANER null, [facility] 5 08:57:04 Hearing loss 93971781 Active 2023 GWEN NAYLANER null, [facility] 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 5 08:55:55 Bradycar vicky [id number] Completed 202311/27/2024 Removal Reason: resolved GWEN DARRELFNER null, [facility] 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 GWEN DARRELJENNY [facility] 08:57:07 Contact dermatit is 68423810 Completed 202311/27/2024 Removal Reason: resolved GWENJACE WINSLOWJENNY [facility] 5 08:48:37 Acute urinary tract infectio n 167968158 Completed 202311/27/2024 Removal Reason: resolved GWEN HAELHAMJENNY [facility], LynLLesleyCL[facility]ley 5 13:52:23 Acute urinary tract infectio n 766454826 Active 2024 [facility] 13:52:23 Bacteria l vaginosi s 252468067 Active 20[facility] 21:34:33 Nodule of lung 743519686 Active 2024 [facility] 16:49:52 Problem Notes None recorded. Procedures Surgical History Date Name Laterality Status Provider Name and Address Organization Details Recorded Time 2024 [facility] 5 07:34:30 2024 bone density scan completed [facility] 5 16:05:43 2024 Joint Inj Beta-shoulder, hip, knee completed ORTIZ RUIZ PA-C [address] [place] [address], [address], [facility], Sina 5 10:26:55 2023 screening for malignant neoplasm of lung completed GWEN VERMA [facility] 4 10:17:37 2023 esophagogastroduodenoscopy completed JEREMY VERMA [facility] 4 11:38:07 2022 Joint Inj Kenal[place]- Shoulder, Hip, Knee completed ORTIZ RUIZ PA-C [address] [place], [address], [facility], [facility] 3 14:37:28 2015 colonoscopy completed ORTIZ RUIZ PA-C [address] [place], [address], [facility], [facility] 4 16:22:06 release of trigger finger completed Katarzyna Doherty [facility] 4 17:09:37 repair of cleft palate completed MARELY CADET [facility] 3 14:46:52 closed rhinoplasty completed PATRICE CADET [facility] 3 14:47:04 Tonsillectomy completed PATRICE CADET [facility] 3 14:47:14 Imaging Results None recorded. Procedure Notes None recorded. Medical Equipment None Reported. Allergies Allergen ID Allergen Name Allergen Category Reaction Reaction Severity Criticality Documentation Date Start Date Code Code System Note Provider Name and Address Organization Details Recorded Time 1416 Klonopin medicatio n Not available Not available Not available 01/10/2023 5 RxNorm [facility] 3 15:07:03 1417 Biaxin medicatio n Not available Not available Not available 01/10/2023 9 RxNorm [facility] 3 15:07:10 1418 Product containin g penicilli n (product) medicatio n Not available Not available Not available 01/10/2023 79221 8001 SNOMED PATRICE CADET jermaine, [facility] 3 14:45:16 83374 Effexor medicatio n rash Not available Not available 04/28/2023 26029 2 RxNorm React ion: Rash; Comme nt: Recor ded 10/24 6:52A M by Jeremy biswas, HELICOPTER SPECIALIST, Offic e Visit ; Promo cyndy; Signi fican ce: *; Reaso n: Drug aller gy; ; Not Available [facility] 3 02:28:39 03447 penicilli n V Not available Not available Not available Not available 04/28/2023 7984 RxNorm Comme nt: Recor ded 10/24 6:52A M by Jeremy biswas, HELICOPTER SPECIALIST, Offic e Visit ; Promo cyndy; Signi ficedith ce: *; Reaso n: Drug aller gy; ; Not Available [facility] 3 02:28:39 37276 adhesive environme nt,medica tion Not available Not available Not available 05/15/2024 Katarzynaarmond Doherty jermaine, [facility] 4 17:06:10 Medications Name Sig Start Date Stop Date Status Note LastModified by Organization Details LastModified Time oxybutyni n chloride ER 10 mg tablet,ex tended release 24 hr TAKE 1 TABLET BY MOUTH EVERY DAY DIRECTED active Not Available Not Available No t Available ibuprofen 800 mg tablet TAKE 1 TABLET BY MOUTH THREE TIMES DAILY NEEDED active Not Available Not Available No t Available fluconazo le 150 mg tablet TAKE 1 TABLET BY MOUTH EVERY DAY 08/29 completed Not Available Not Available Not Available tolterodi ne ER 4 mg capsule,e xtended release 24 hr take 1 capsule BY MOUTH EVERY DAY 10/30 completed Not Available Not Available Not Available lisinopri l 20 mg tablet Take 1 tablet every day by oral route for 90 days. 2024 active Not Available Not Available Not Avai lable prednison e 20 mg tablet TAKE 2 TABLETS BY MOUTH EVERY DAY FOR THREE DAYS, THEN ONE EVERY DAY FOR THREE DAYS, THEN ONE-HALF EVERY DAY FOR THREE DAYS 05/27 completed Not Available Not Available Not Available metronida zole 500 mg tablet Take 1 tablet every 8 hours by oral route for 7 days. 04/27 completed Not Available Not Available Not Available thiamine HCl (vitamin B1) 250 mg tablet Take 1 tablet every day by oral route as directed . 2023 active Not Available Not Available Not Avai lable omeprazol e 40 mg capsule,d elayed release take 1 capsule BY MOUTH EVERY DAY active Not Available Not Available No t Available tramadol 50 mg tablet TAKE 1 TABLET BY MOUTH EVERY 6 HOURS NEEDED FOR PAIN 06/18 completed Not Available Not Available Not Available triamcino lone acetonide 0.1 % topical cream apply a thin layer TO affected area TWICE DAILY active Not Available Not Available No t Available levothyro xine 75 mcg tablet TAKE 1 TABLET BY MOUTH EVERY DAY active Not Available Not Available No t Available Macrobid 100 mg capsule Take 1 capsule twice a day by oral route for 7 days. 03/12 completed Not Available Not Available Not Available betametha sone acetate and sodium phos 6 mg/mL suspensio n for injection Take 1 mL every day by injectio n route for 1 day. 05/27 completed Not Available Not Available Not Available terbinafi ne HCl 250 mg tablet TAKE 1 TABLET BY MOUTH EVERY DAY 08/29 completed Not Available Not Available Not Available levothyro xine 50 mcg tablet TAKE 1 & 1/2 TABLETS BY MOUTH EVERY DAY 05/15 completed Not Available Not Available Not Available lisinopri l 10 mg tablet TAKE 1 TABLET BY MOUTH EVERY DAY 03/26 completed Not Available Not Available Not Available metronida zole 0.75 % topical cream APPLY A THIN LAYER TO AFFECTED AREA TWICE DAILY IN THE MORNING AND EVENING 07/10 completed Not Available Not Available Not Available nitroglyc veronica 0.4 mg sublingua l tablet active Not Available Not Available Not Available oxybutyni n chloride ER 5 mg tablet,ex tended release 24 hr TAKE 1 TABLET BY MOUTH EVERY DAY DIRECTED 12/18 completed Not Available Not Available Not Available omeprazol e 20 mg capsule,d elayed release Take 1 capsule every day by oral route. 07/12 completed PT ALREADY ON 40MG KM/DH Not Available Not Available Not Available folic acid 1 mg tablet TAKE 1 TABLET BY MOUTH EVERY DAY active Not Available Not Available No t Available monteluka st 10 mg tablet TAKE 1 TABLET BY MOUTH EVERY DAY active Not Available Not Available No t Available lisinopri l 5 mg tablet TAKE 1 TABLET BY MOUTH EVERY DAY 07/09 completed Not Available Not Available Not Available azelastin e 137 mcg (0.1 %) nasal spray USE 2 SPRAYS IN EACH NOSTRIL TWICE DAILY active Not Available Not Available No t Available albuterol sulfate HFA 90 mcg/actua tion aerosol inhaler INHALE TWO PUFFS EVERY 6 HOURS DIRECTED active Not Available Not Available No t Available ondansetr on 4 mg disintegr ating tablet DISSOLVE ONE TABLET BY MOUTH EVERY 8 HOURS NEEDED FOR NAUSEA AND VOMITING FOR THREE DAYS 12/18 completed Not Available Not Available Not Available fluticaso ne propionat e 50 mcg/actua tion nasal spray,kyung pension USE 2 SPRAYS IN EACH NOSTRIL EVERY DAY active Not Available Not Available No t Available doxycycli ne hyclate 100 mg tablet TAKE 1 TABLET BY MOUTH TWICE DAILY 12/18 completed Not Available Not Available Not Available naproxen 500 mg tablet TAKE ONE TABLET BY MOUTH TWICE DAILY NEEDED FOR PAIN 10/30 completed Not Available Not Available Not Available magnesium 250 mg (as magnesium oxide) tablet TAKE ONE TABLET BY MOUTH DAILY 2024 active Not Available Not Available Not Avai lable Bactrim DS 800 mg-160 mg tablet Take 1 tablet every 12 hours by oral route for 7 days. 03/02 completed Not Available Not Available Not Available magnesium 200 mg tablet TAKE 1 TABLET BY MOUTH EVERY DAY 05/15 completed Not Available Not Available Not Available escitalop garfield 10 mg tablet TAKE 1 TABLET BY MOUTH EVERY DAY 03/11 completed Not Available Not Available Not Available escitalop garfield 20 mg tablet TAKE 1 TABLET BY MOUTH EVERY DAY active Not Available Not Available No t Available Ventolin 90 mcg/actua tion aerosol inhaler four times daily, as needed 07/10 completed vo LA NENA/codi; [id number]; Recorded 10/05/19 7:13AM by Gwen Vrema LPN (Authori zed through Ortiz Ruiz PA-C), Office Visit; Refill Quantity : 1; Unspecif ied; Not Available Not Available Not Available cyclobenz aprine 5 mg tablet TAKE 1 TABLET BY MOUTH THREE TIMES DAILY NEEDED active Not Available Not Available No t Available mirtazapi ne 7.5 mg tablet TAKE 1 TABLET BY MOUTH EVERY DAY active Not Available Not Available No t Available Antifunga l (clotrima zole) 1 % topical cream APPLY TO THE AFFECTED AREA(S) TWICE DAILY 07/10 completed Not Available Not Available Not Available evening primrose oil daily, as needed 07/10 completed 0; Recorded 10/24/19 11:29AM by Gwen Verma LPN, Office Visit; Not Available Not Available Not Available Flonase in both nostril daily 07/10 completed 0; Recorded 10/24/19 11:29AM by Gwen Verma LPN, Office Visit; Not Available Not Available Not Available Multivita mins daily 07/10 completed 0; Recorded 10/24/19 23 11:29AM by Gwen Verma LPN, Office Visit; Not Available Not Available Not Available Clotrimaz ole Anti-Doc al two times daily 07/10 completed Recorded 10/24/19 23 11:52AM by Ortiz Ruiz PA-C, Office Visit; Refill Quantity : 30; Gram; Not Available Not Available Not Available [facility]SC Levothyro xine Sodium daily 07/10 completed vo LA NENA/codi /kathie; [id number]; Recorded 10/24/19 23 11:29AM by Gwen Verma LPN (Authori zed through Ortiz Ruiz PA-C), Office Visit; Refill Quantity : 90; Tablet; Not Available Not Available Not Available escitalop garfield oxalate daily 07/10 completed Recorded 10/05/19 7:13AM by Gwen Verma LPN, Office Visit; Refill Quantity : 90; Tablet; Not Available Not Available Not Available Mucus Relief daily 07/10 completed 0; Recorded 10/24/19 11:29AM by Gwen Verma LPN, Office Visit; Not Available Not Available Not Available thiamine mononitra te (vitamin B1) 100 mg tablet take TWO & ONE-HALF tablets BY MOUTH daily as directed 05/15 completed Not Available Not Available Not Available magnesium 200 mg (as magnesium oxide) tablet Take 1 tablet every day by oral route. 05/27 completed Not Available Not Available Not Available Trelegy Ellipta 100 mcg-62.5 mcg-25 mcg powder for inhalatio n INHALE 1 PUFF EVERY DAY active Not Available Not Available No t Available Vitals Date Recorded Body height Body mass index (BMI) Body weight Oxygen saturation Oxygen saturation in Arterial blood by Pulse oximetry Heart rate Respiratory rate Body temperature Systolic And Diastolic Provider Name and Address Organization Details Last Updated DateTime 162.56 cm 19.9 kg/m2 53026.7 1 g 97 % 97 % 50 /min 16 /min 98.5 [degF] 128/66 mm[Hg] [facility]cca [facility] 10:32:06 Date Recorded Body height Body mass index (BMI) Body weight Oxygen saturation Oxygen saturation in Arterial blood by Pulse oximetry Heart rate Respiratory rate Body temperature Systolic And Diastolic Provider Name and Address Organization Details Last Updated DateTime 162.56 cm 20.3 kg/m2 22824.9 g 97 % 97 % 66 /min 18 /min 98 [degF] 122/70 mm[Hg] GWEN VERMA [facility] 10:05:33 Date Recorded Systolic And Diastolic Provider Name and Address Organization Details Last Updated DateTime 06/24/2025 138/80 mm[Hg] NEYL MEDINA [address] [place], [address], [facility] 06/24/2025 14:23:34 Date Recorded Body height Body mass index (BMI) Body weight Oxygen saturation Oxygen saturation in Arterial blood by Pulse oximetry Heart rate Respiratory rate Body temperature Provider Name and Address Organization Details Last Updated DateTime 162.56 cm 20.1 kg/m2 08976.3 1 g 98 % 98 % 78 /min 18 /min 97.9 [degF] GWEN VERMA [facility] 13:54:02 Date Recorded Body height Body mass index (BMI) Body weight Oxygen saturation Oxygen saturation in Arterial blood by Pulse oximetry Heart rate Respiratory rate Body temperature Systolic And Diastolic Provider Name and Address Organization Details Last Updated DateTime 162.56 cm 19.9 kg/m2 35954.7 1 g 98 % 98 % 70 /min 18 /min 97 [degF] 130/80 mm[Hg] GWEN VERMA [facility] 14:42:35 Social History Question Answer Notes LastModified by [employer] Details LastModified Time Tobacco Smoking Status Current Every Day Smoker 2 ppd [facility] 07/10/2023 15:07:55 How Many Alcoholic Drinks Do You Consume Per Day On Average? 4 [email or web address] Information not available 08/21/2024 Which Illicit Or Recreational Drugs Have You Used? Marijuana [email or web address] Information not available 07/10/2023 What Was The Date Of Your Most Recent Tobacco Screening? 02/16/2025 [email or web address] Information not available 02/16/2025 What Is Your Current Pack Years? 30ormorepackye ars [email or web address] Information not available 06/18/2024 Sex: Unknown Functional Status Question Answer Note LastModified by [employer] Details LastModified Time How many times per week do you consume alcohol? 3-4 times per week [email or web address] Information not available 06/18/2024 Do you use any illicit or recreational drugs? Yes [email or web address] Information not available 07/10/2023 What is your level of alcohol consumption? Moderate Information not available 07/10/2023 Are you currently employed? No Disabled [email or web address] Information not available 07/10/2023 Mental Status None recorded. Family History Nothing Reported. Medical History Condition Response Reflux/GERD Y High Cholesterol Y Hypertension Y Hypothyroidism Y Depression Y COPD Y Gynecological HistoryNo gynecological history recorded. Obstetrics History GPAL:G 0 P 0 0 0 0 Immunizations Vaccine Type Date Status Note Provider Nam e and Address Organization Details Recorded Time Pneumococcal conjugate PCV20, polysaccharide IBD565 conjugate, adjuvant, PF 5 completed ORTIZ RUIZ PA-C [address] [place] [address], [id number], [facility] 12/17/2024 16:48:54 Influenza, split virus, trivalent, preservative 8 completed Not Available [facility] 11/12/2023 13:34:25 COVID-19, mRNA, LNP-S, PF, 100 mcg/0.5mL dose or 50 mcg/0.25mL dose 1 completed Not Available [facility] 11/12/2023 13:34:25 Influenza, split virus, trivalent, PF 5 completed GWEN dean, [facility] 07/09/2025 15:41:16 COVID-19, mRNA, LNP-S, PF, 30 mcg/0.3 mL dose 1 completed Not Available [facility] 10/16/2023 19:53:03 COVID-19, mRNA, LNP-S, PF, 30 mcg/0.3 mL dose 2 completed Not Available [facility] 10/16/2023 19:53:03 COVID-19, mRNA, LNP-S, PF, 30 mcg/0.3 mL dose 1 completed Not Available [facility] 10/16/2023 19:53:03 Hep A, adult 5 completed Not Available [facility] 10/16/2023 19:53:03 Hep A, adult 4 completed Not Available [facility] 10/16/2023 19:53:03 Influenza, split virus, quadrivalent, PF 3 completed GWEN dean, [facility] 07/10/2023 16:23:21 Influenza, split virus, trivalent, PF 4 completed GWEN dean, [facility] 06/18/2024 15:52:46 Past Encounters Encounter ID Performer Location Encounter Start Date Encounter Closed Date Diagnosis/Indication Diagnosis SNOMED-CT Code Diagnosis ICD10 Code Diagnosis IMO Codes Diagnosis Note [id number] ORTIZ RUIZ PA-C [facility] ([facility]) [address] [place] [address] [phone] 01/10/2023 14:30:53 01/10/2023 16:08:43 Hypothyroidism 40750751 E03.9 Chondromal acia of right patella 3245576580 9123275 M22.41 hand out given on knee exercises to do Low back pain 196671658 M54.50 [place] with [place] [id number] ORTIZ RUIZ PA-C [facility] ([facility]) [address] [place] [address] [phone] 5 02/01/2023 09:27:39 02/01/2023 18:52:48 Trigger finger of left hand 4811473131 0981924 M65.30 [id number] ORTIZ RUIZ PA-C [facility] ([facility]) [address] [place] [address] [phone] 04/04/2023 13:59:38 04/04/2023 16:16:52 Right Achilles tendinitis 9320497214 61181 M76.61 hand out of foot and ankle exercises givenIce Onychomyco sis of toenails 332249642 B35.1 nails trimmed Perioral dermatitis 2387 29097 L71.0 [id number] ORTIZ RUIZ PA-C [facility] ([facility]) [address] [place] [address] [phone] 5 07/10/2023 14:54:32 07/10/2023 19:06:24 Abdominal pain 19427219 R10.9 Gastroesop hageal reflux disease 457174351 K21.9 bland diet. no caffiene, spice or greasy foods. Trigger fi nger of left hand 7720085269 7249097 M65.30 3rd finger. failed steroid injection 6 month ago. Administra tion of influenza vaccine 71367285 Z23 [id number] SLIME SALINAS [facility] ([facility]) [address] [place] [address] [phone] 08/07/2023 17:08:44 10/08/2023 13:47:01 Dysuria 87257964 R30.0 Acute urin le tract infection 510649846 N39.0 Start Bactrim BID x7 days, take as prescribed . Encouraged to increase water intake and decrease caffeine and sugary drinks. If still having symptoms after completion of antibiotic s, recommend a urine re-check. Urine was sent for culture. Will call with culture results. Will also start Diflucan today. Recommend a 2 week follow up with PCP due to prolonged symptoms. Patient verbalized understand ing. 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 no caffiene, spice or greasy foods.oN ppi. Gave a GERD handout of tips.If EGD ok then will need a modified barium swallowShe has appt with new dentist to get her dentures refitted. Chronic ob structive pulmonary disease 12873682 J44.9 CCA form filled out during today's office visit Hypothyroidism 49097876 E03.9 Harmful pa ttern of use of alcohol 79258769 F10.10 Nicotine dependence 5629 4008 F17.200 Essential hypertension 69827997 I10 [id number] Ricardo Nash DO [facility] ([facility]) [address] [place] [address] [phone] 5 11/12/2023 13:33:59 11/12/2023 14:21:40 Gastroesophageal reflux disease 100657254 K21.9 refractury to high dose PPI. counseled on smoking, etoh, nsaids.celeste l proceed with EGD Chronic ob structive pulmonary disease 06674030 J44.9 stable. counseled on smoking cessation Chronic ab dominal pain 876262746 R10.9 proceed with EGD as above. Erosive esophagitis 4071 9004 K22.10 hx of, per pt. dx wtih EGDs in [facility] more than 10 years ago. [id number] ORTIZ RUIZ PA-C [facility] ([facility]) [address] [place] [address] [phone] 12/19/2023 15:34:01 12/20/2023 11:12:25 Hearing loss 03786415 H91.90 History of cleft palate 520410323 Z87.730 Bradycardia 78745150 R00 .1 Memory impairment 727847 006 R41.3 Harmful pa ttern of use of alcohol 27644912 F10.10 2-3 drinks of beer a day. Mixed urin le incontinence 298675657 N39.46 stop the oxybutin and see helps with memory [id number] ORTIZ RUIZ PA-C [facility] ([facility]) [address] [place] [address] [phone] 03/26/2024 15:09:22 03/26/2024 16:33:38 Hypothyroidism 26068715 E03.9 Hypomagnesemia 257415910 E83.42 Essential hypertension 34686669 I10 Bradycardia 30206532 R00 [address] Perez on 04/21 and will get an event monitorDrLesley Archuleta did not thing she has a heart block or need emergent pacemaker. Her stress test was negative but was thought accurate due to the dobutamine drip [id number] Tj Chong MD [facility] ([facility]) [address] [place] [address] [id number] 05/15/2024 16:51:37 05/15/2024 19:07:40 Dysuria 22534321 R30.0 Contact dermatitis 82616 004 L25.9 Provide steroid cream to apply to the affected area. Acute urin le tract infection 944329776 N39.0 [id number] ORTIZ RUIZ PA-C [facility] ([facility]) [address] [place] [address] [phone] 5 06/18/2024 14:25:21 06/18/2024 15:56:11 Acute exacerbation of chronic obstructive pulmonary disease 001013684 J44.1 Administra tion of influenza vaccine 49173580 Z23 Urge incon tinence of urine 75852034 N39.41 Spasm 80367492 R25.2 Hypothyroidism 92613422 E03.9 Screening for malignant neoplasm of breast 284392119 Z12.39 Nicotine dependence 5629 4008 F17.842 [id number] ORTIZ RUIZ PA-C [facility] ([facility]) [address] [place] [address] [phone] 08/21/2024 09:50:21 08/21/2024 10:57:02 Chronic obstructive pulmonary disease 74755354 J44.9 Weight loss 24778074 R63 .4 her mammo colonoscop y, egd and lung screen are all current and neglabs are current and normal Depressive disorder 3548 9007 F32.A [id number] ORTIZ RUIZ PA-C [facility] ([facility]) [address] [place] [address] [phone] 09/18/2024 11:00:27 09/18/2024 12:03:35 Osteoarthritis 255214670 M19.90 [id number] ORTIZ RUIZ PA-C [facility] ([facility]) [address] [place] [address] [phone] 11/27/2024 09:33:29 11/27/2024 10:30:09 Trochanteric bursitis of right hip 9341914322 82138 M70.61 hand out for IT band exercises given to pt. 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 then a 3 mm oval dark brown lesion. both flat. [id number] ORTIZ RUIZ PA-C [facility] ([facility]) [address] [place] [address] [phone] 12/17/2024 14:13:50 12/17/2024 14:55:09 Adult health examination 123943557 Z00.00 CCA form filled out during today's office visit Chronic ob structive pulmonary disease 45287554 J44.9 Depressive disorder 3548 9007 F32.A Hypertensive disorder 38 479121 I10 Hypothyroidism 47289067 E03.9 Nicotine dependence 5629 4008 F17.200 pt not interested in quitingLTC T 07/24 Administra tion of pneumococcal vaccine 19360780 Z23 Overactive urinary bladder 381053165 N32.81 educated on using anticholen ergics along with the cyclobenzi lisa can cause SE of urinary retention, confusion, constipati on ex. Neoplasm o f uncertain behavior of skin of face 01778640 D48.5 right side btwn the nose and eye. 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 then a 3 mm oval dark brown lesion. both flat. Substance abuse 36490474 F19.10 uses marijuana. Harmful pa ttern of use of alcohol 83850319 F10.10 2-3 drinks of beer a day. Anxiety disorder 2215419 06 F41.9 stable on Cymbalta. [id number] Ricardo Nash DO [facility] ([facility]) [address] [place] [address] [phone] 02/16/2025 10:20:54 02/16/2025 11:27:04 Dysuria 85317271 R30.0 52273 Acute urin le tract infection 684304631 N39.0 7162935 I reviewed UA results and discussed with pt. We will start antibiotic s. Pt will increase oral fluids and can use cranberry. Return to office with no improvemen t or any problems. Go to ER with severe worsening or severe problems.W e will obtain urine culture [id number] ORTIZ RUIZ PA-C [facility] ([facility]) [address] [place] [address] [id number] 04/09/2025 10:01:13 04/09/2025 11:03:45 Gynecologic examination 71628351 Z01.135 7568264 Dysuria 62967113 R30.0 81133 Urge incon tinence of urine 76717553 N39.41 540342 Acute cont act dermatitis 868155354 L25.9 364 Postmenopausal state 764 77565 Z78.0 740441 [id number] ORTIZ RUIZ PA-C [facility] ([facility]) [address] [place] [address] 05/12/2025 10:19:10 05/13/2025 13:03:08 [id number] ORTIZ RUIZ PA-C [facility] ([facility]) [address] [place] [phone] 06/24/2025 12:53:11 06/24/2025 15:00:21 Essential hypertension 18850925 I10 52987 increase lisipril from 5 to 20mg. daily BPs at home and f/u with me in 2 weeks with list of BPs Bilateral carpal tunnel syndrome 7207218324 3885826 G56.03 867561 Screening mammography 24 125325 Z12.31 9375685340 Nicotine dependence 5629 4008 F17.200 63739149 pt not interested in quitingLT T 07/24 [id number] ORTIZ RUIZ PA-C [facility] ([facility]) [address] [place] [address] 07/09/2025 14:34:06 07/09/2025 15:22:57 Essential hypertension 64358866 I10 increase lisipril from 5 to 20mg. daily BPs at home and f/u with me in 2 weeks with list of BPsBPs are better. she brings in her readings. Screening for malignant neoplasm of colon 612153156 Z12.11 391774 Requires i nfluenza virus vaccination 789126686 Z23 477413 Health Concerns Section Related Observation LastModified by Organization Detai ls LastModified Time None Recorded Concern Status LastModified by Organization Details LastModified Time None Recorded Advance Directives Directive None Recorded Payers Insurance Date Sequence Insurance Name Policy Number Policy Castro Covered Member ID Castro Member ID Guarantor Name 07/16/2025 [id number] (MEDICARE[place] Nano Olea [id number] [place] 07/16/2025 [place] [facility] (INSTITUTION [place]) [place] [id number] Nano [place] 07/16/2025 2 [place] [id number] Nano [place] 07/16/2025 1 [employer] - PR[place] (MEDICARE REPLACEMENT/ ADVANTAGE - HMO) [id number] [id number] [place] 07/16/2025 1 [place] [id number] [place] 07/16/2025 2 [place] [id number] [employer] [place] Notes Date Note Type Note Provider Name and Address Organization Details Recorded Time 5 text/html Lower Urinary Tract Symptoms (LUTS)Reported by PatientROS as noted in the HPI walk in patientpatient is here today for vaginal pressure, urgency, and lower abdomen pain that started over a week ago no vaginal discharge. but dark urine, dysuria, frequency and hesitency. no fevers or chills. mild back pain, right side. pt denies any concern for STD. 1 partner in the last 6 mts. Ricardo Nash, DO [address] [place] [address], [phone], [facility], [facility] 02/16/2025 11:18:09 5 text/html Vaginal DischargeReported by PatientHPIFor location, patient reportsvagina. For quality, patient reportswhite,frothy, andincreased quantity. For severity, patient reportsmoderate. For context, patient reportspostmenopausal,occ urs with sexual activity,condom use: no, andhistory of menopause having occurred. Rash/Skin LesionReported by PatientHPIFor quality, patient reportsitchyanddry. For location, patient reportsarm. 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 For urinary symptoms, patient reportsincontinence,stres s incontinence,urge incontinence, andburning sensation during urinationbut reportsno hematuria. For vulva, patient reportsatrophic vulvabut reportsno genital lesion. For vagina, patient reportswhite,yellow-green , thick, andvaginal burning. For vaginal bleeding, patient reportsno history of post menopausal bleeding.Breast SymptomsFor left breast, patient reportsno breast lump left,no breast pain left, andno nipple discharge left. For right breast, patient reportsno breast lump right,no breast pain right, andno nipple discharge right.Preventative MeasuresFor preventive measures, patient reportsmammogram performed within the past yearandhistory of recent colonoscopy. I am having vaginal spasms with discharge since uti in january with bactrim and also with macrobid.last pap 2017 she thinks ORTIZ RUIZ PA-C [address] [place], [address], [facility] 04/09/2025 11:02:38 5 text/html HypertensionReported by PatientHPIFor quality, patient reportspressure. For context, patient reportsexertion,emotional stress, andpositional. For associated symptoms, patient reportsfatigue. For severity, patient reportsgrade 2 (>/=140/90). For duration, patient reportshas noted for years. For onset/timing, patient reportsgradual onset. For alleviating factors, patient reportsmedication. For self care, patient reportschecks blood pressure at home (range 140/70)andblood pressure goal: 120/70. Jeanie told me on Sunday my bp was high. I amm trying to downsize my apt.for an inspection and wasn't taking my pills, I started taking them the last 3 days but had been misplaced for a week. Dr Magaña is sending me to GI x1 month bilat hand numbness. waking up and gets better in the day. if on the phone and holding for awhile. 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 Dr. Magaña feels her dysphagia is more GI related. had a scope 18 months ago with hiatal hernia and gastritis. she is a heavy smoker and caffiene use. light alcohol use with 2 beers a week. ORTIZ RUIZ PA-C [address] [place], [address], [facility], [place] 06/24/2025 14:47:28 text/html HypertensionReported by PatientHPIFor quality, patient reportspressure. For context, patient reportsexertionandpositio nal. For severity, patient reportsgrade 1 (130-139/80-89). For duration, patient reportshas noted for years. For onset/timing, patient reportsgradual onset. For alleviating factors, patient reportsmedication. For self care, patient reportsblood pressure goal: 120/70. For associated symptoms, patient reportsno shortness of breath,no fatigue,no palpitations,no decrease in exercise tolerance, andno snoring. I brought my bp readings for Angel admits to using meth on and off for energy. ORTIZ RUIZ PA-C [address] [place], [address], [facility] 07/09/2025 15:22:13 OBGyn Episode No OBEpisode recorded.
[2025-08-05 10:21] LABS: Hematocrit 39.3 % (36-47); Hemoglobin 13.30 g/dL (11.27-16.99); Mean Corpuscular HGB Conc 33.8 g/dL (30-55); Mean Corpuscular Hemoglobin 32.2 pg (27-33); Mean Corpuscular Volume 95.2 fl (85-98); Nucleated Red Blood Cells % 0 %; Platelet Count 248 10^3/cmm (157-399); Red Blood Count 4.13 10^6/uL (3.85-5.65); White Blood Count 5.86 10^3/uL (3.29-11.43)
[2025-08-05 10:26] LABS: INR 0.93 (0.8-1.2); Prothrombin Time 13.20 SECONDS (12.1-14.9)
[2025-08-05 10:27] LABS: Partial Thromboplastin Time 28.9 SECONDS (23.9-36.7)
[2025-08-05 10:32] LABS: Troponin(5th) Baseline 7 ng/L (0-10)
[2025-08-05 10:46] LABS: Alanine Aminotransferase 12 U/L (0-33); Albumin Level 4.4 g/dL (3.5-5.2); Alkaline Phosphatase 69 U/L (35-105); Aspartate Amino Transferase 22 U/L (0-32); Blood Urea Nitrogen 9 mg/dL (6-20); Calcium 9.2 mg/dL (8.5-10.5); Carbon Dioxide 24 mmol/L (22-29); Chloride 103 mmol/L (98-107); Creatinine Clr Calc Pharmacy 85.5608; Free T4 Free Thyroxine 0.73 ng/dL (0.82-1.77); Globulin 2.0 g/dL (1.3-4.6); Glucose 100 mg/dL (65-115); Magnesium 2.3 mg/dL (1.7-2.3); NT Pro B Type Natriuretic Pept 214 pg/mL (0-125); Osmolality Calculated 285 mOsm/kg (285-295); Sodium 138 mmol/L (136-145); Thyroid Stimulating Hormone 21.55 uIU/mL (0.27-4.20); Total Protein 6.4 g/dL (6.6-8.7)
[2025-08-05 10:47] LABS: Anion Gap 15.3 (5-19); Potassium 4.3 mmol/L (3.5-5.1)
--- NOTE | 2025-08-05 11:44 | W.ED.GENADLT ---
HPI - General Adult General: Chief complaint: General Medical Stated complaint: LOW HEART RATE Time Seen by Provider: 08/05/25 10:03 History of Present Illness: 59-year-old female extensive history of bradycardia managed over the last year, no longer on any medications for her blood pressure, other than lisinopril, pre-existing history of hypothyroidism on levothyroxine 75 mcg, presenting the emergency department by preprocedural anesthesia assessment showing marked bradycardia in the upper 30s to low 40s. Patient reports dyspnea on exertion over the last several weeks to months for which she has undergoing a bronchoscopy to assess for malignancy, she denies any acute chest pain palpitations fatigue or passing out in the recent past Related Data Home Medications ?Medication ?Instructions ?Recorded ?Confirmed montelukast 10 mg tablet 10 mg PO DAILY 08/16/20 08/05/25 omeprazole 40 mg capsule,delayed 40 mg PO DAILY 07/26/21 08/05/25 release folic acid 1 mg tablet 1 mg PO DAILY 12/27/23 08/05/25 oxybutynin chloride 10 mg 10 mg PO DAILY 03/24/24 08/05/25 tablet,extended release 24 hr azelastine 137 mcg (0.1 %) nasal 137 mcg intranasal DAILY 07/30/25 08/05/25 spray fluticasone propionate 50 50 mcg intranasal DAILY 07/30/25 08/05/25 mcg/actuation nasal spray,suspension mirtazapine 7.5 mg tablet 7.5 mg PO DAILY 07/30/25 08/05/25 levothyroxine 75 mcg tablet 75 mcg PO DAILY 08/03/25 08/05/25 lisinopril 20 mg tablet 20 mg PO DAILY 08/03/25 08/05/25 escitalopram oxalate 20 mg tablet 20 mg PO DAILY 08/05/25 08/05/25 Previous Rx's ?Medication ?Instructions ?Recorded magnesium 200 mg tablet 200 mg PO DAILY #7 tabs 03/25/24 nitroglycerin 0.4 mg sublingual 0.4 mg sublingual Q5M PRN chest 07/04/24 tablet pain #20 tabs varenicline tartrate 0.5 mg (11)-1 See Rx Instructions PO PER PKG DIR 07/30/25 mg (42) tablets in a dose pack #53 ea [facility] Allergies Allergy/AdvReac Type Severity Reaction Status Date / Time clarithromycin (From Biaxin) Allergy RASH Verified 08/05/25 08:56 clonazepam (From Klonopin) Allergy RASH Verified 08/05/25 08:56 Penicillins Allergy RASH Verified 08/05/25 08:56 COUNT INCLUDES THE [facility] ED PFSH: Medical History Lung nodule, solitary Hypertension Bradycardia Hypothyroidism Nausea & vomiting Angina pectoris, unstable Pneumonia Sinus bradycardia Polysubstance abuse Cochlear implant in place Essential hypertension History of COPD Hx of gastroesophageal reflux (GERD) History of high cholesterol Normal colonoscopy Hypothyroidism Depression Tinea corporis Hx of cleft palate Radioulnar synostosis Surgical History Hx of angioplasty Hx of tonsillectomy Hx of rhinoplasty Hx of mastoidectomy Social History Smoking and tobacco/nicotine status: current every day tobacco/nicotine user (2 ppd X 40 years) cigarettes Packs smoked per day: 1.5 Years cigarettes smoked: 40 Second hand smoke exposure: No Alcohol intake: current Alcohol intake frequency: holidays/special occasions only Alcohol type: beer Physical Exam Narrative: EXAM NARRATIVE: Gen: A&Ox4, no acute distress, nontoxic appearing HEENT: Normocephalic, atraumatic, no scleral icterus, external ears normal, moist mucous membranes Neck: Supple, full range of motion, no observable masses Lungs: No Respiratory distress, Lungs clear to auscultation bilaterally no rales, rhonchi, wheezing CV: Bradycardic rate in the 40s to 50s although increases as high as 60s when patient moves around in bed, regular rhythm, no murmur, no pitting edema to lower extremities bilaterally Abdomen: Soft, nondistended, nontender to palpation MSK: No joint swelling, FROM all 4 extremities Skin: No rashes, petechiae, lesions. Normal color per patient. Neuro: Alert and oriented, no slurred speech, sensation and strength grossly intact all 4 extremities Psych: Appropriate for situation. Course Consultations: Consultation #1: Spoke with Dr. Orourke of cardiology, discussed case as well as patient's symptoms, he has seen this patient in clinic before, he agrees the patient does not warrant admission at this time or need emergent pacemaker implantation but will see the patient in clinic on an expedited basis to discuss pacemaker as an elective procedure. Time: 11:00 Vital Signs: Vital signs: Vital Signs Temperature 98.1 F 08/05/25 09:52 Pulse Rate 40 L 08/05/25 14:10 Respiratory Rate 16 08/05/25 14:10 Blood Pressure 117/57 08/05/25 14:10 Pulse Oximetry 97 08/05/25 14:10 Oxygen Delivery Me thod Room Air 08/05/25 11:53 MDM - General Adult Medical Decision Making 59-year-old female history of bradycardia hypothyroidism hypertension presenting the emergency department with asymptomatic bradycardia during preprocedural anesthesia assessment for scheduled bronchoscopy for malignancy evaluation, in the emergency department patient range with the state sinus bradycardia in the 40s, no high degree AV block, no symptoms, good peripheral perfusion and blood pressure, chronic symptoms without any significant acute change, troponin negative, stable for discharge with outpatient cardiology follow-up after discussion with cardiology Lab Data Labs with no anemia or leukocytosis, negative troponin, no significant electrolyte derangements, mildly hypothyroid 08/05/25 10:00 08/05/25 10:00 Radiology Impressions Chest X-Ray 08/05/25 10:04 Impression: 1. Small, 1.5 cm nodule overlying the right midlung which may correspond to nodule seen on PET scan. 2. Hyperinflation Laboratory Results WBC 5.86 10^3/uL (3.29-11.43) 08/05/25 10:00 RBC 4.13 10^6/uL (3.85-5.65) 08/05/25 10:00 Hgb 13.30 g/dL (11.27-16.99) 08/05/25 10:00 Hct 39.3 % (36-47) 08/05/25 10:00 MCV 95.2 fl (85-98) 08/05/25 10:00 MCH 32.2 pg (27-33) 08/05/25 10:00 MCHC 33.8 g/dL (30-55) 08/05/25 10:00 RDW 13.2 % (12.1-15.1) 08/05/25 10:00 Plt Count 248 10^3/cmm (157-399) 08/05/25 10:00 MPV 9.7 fL (7.4-10.4) 08/05/25 10:00 Neut % (Auto) 55.5 % 08/05/25 10:00 Lymph % (Auto) 30.4 % 08/05/25 10:00 [place] % (Auto) 9.7 % 08/05/25 10:00 Eos % (Auto) 2.0 % 08/05/25 10:00 Baso % (Auto) 1.9 % 08/05/25 10:00 Neut # (Auto) 3.25 10^3/uL (1.8-7.7) 08/05/25 10:00 Lymph # (Auto) 1.8 10^3/uL (0.8-4.8) 08/05/25 10:00 [place] # (Auto) 0.6 10^3/uL (0.2-0.9) 08/05/25 10:00 Eos # (Auto) 0.1 10^3/uL (0.0-0.8) 08/05/25 10:00 Baso # (Auto) 0.1 10^3/uL (0.0-0.1) 08/05/25 10:00 Nucleated RBC % (auto) 0 % 08/05/25 10:00 Nucleated RBCs # 0.0 /100WBC 08/05/25 10:00 PT 13.20 SECONDS (12.1-14.9) 08/05/25 10:00 INR 0.93 (0.8-1.2) 08/05/25 10:00 APTT 28.9 SECONDS (23.9-36.7) 08/05/25 10:00 Sodium 138 mmol/L (136-145) 08/05/25 10:00 Potassium 4.3 mmol/L (3.5-5.1) 08/05/25 10:00 Chloride 103 mmol/L (98-107) 08/05/25 10:00 Carbon Dioxide 24 mmol/L (22-29) 08/05/25 10:00 Anion Gap 15.3 (5-19) 08/05/25 10:00 BUN 9 mg/dL (6-20) 08/05/25 10:00 Creatinine 0.6 mg/dL (0.5-0.9) 08/05/25 10:00 GFR Calculation 102.3 mL/min (90-130) 08/05/25 10:00 Glucose 100 mg/dL (65-115) 08/05/25 10:00 Calculated Osmolality 285 mOsm/kg (285-295) 08/05/25 10:00 Calcium 9.2 mg/dL (8.5-10.5) 08/05/25 10:00 Magnesium 2.3 mg/dL (1.7-2.3) 08/05/25 10:00 Total Bilirubin 0.3 mg/dL (0.15-1.2) 08/05/25 10:00 AST 22 U/L (0-32) 08/05/25 10:00 ALT 12 U/L (0-33) 08/05/25 10:00 Alkaline Phosphatase 69 U/L (35-105) 08/05/25 10:00 Troponin T Baseline 7 ng/L (0-10) 08/05/25 10:00 Troponin T 120 Minute 6.73 ng/L (0-10) 08/05/25 11:50 Delta Troponin T -0.27 ABS# (0-10) L 08/05/25 11:50 NT-Pro-B Natriuret Pep 214 pg/mL (0-125) H 08/05/25 10:00 Total Protein 6.4 g/dL (6.6-8.7) L 08/05/25 10:00 Albumin 4.4 g/dL (3.5-5.2) 08/05/25 10:00 Globulin 2.0 g/dL (1.3-4.6) 08/05/25 10:00 TSH 21.55 uIU/mL (0.27-4.20) H 08/05/25 10:00 Free T4 0.73 ng/dL (0.82-1.77) L 08/05/25 10:00 All radiology interpretation(s) finalized by discharge ED provider radiology interpretation(s): Chest x-ray with previously noted lung nodule, no pulmonary edema EKG Data EKG 1: I personally reviewed and interpreted this EKG as follows: EKG interpretation date: 08/05/25 EKG interpretation time: 12:09 Interpretation: Sinus bradycardia at 43 bpm, no STEMI, no ectopy, QTc 471 ms, normal axis Computer generated interpretation: Chest X-Ray 08/05/25 10:04 Impression: 1. Small, 1.5 cm nodule overlying the right midlung which may correspond to nodule seen on PET scan. 2. Hyperinflation Discharge Plan Discharge Patient Disposition: Home Clinical Impression: Bradycardia, severe sinus Condition: Stable Prescriptions: No Action omeprazole 40 mg capsule,delayed release(DR/EC) 40 mg PO DAILY folic acid 1 mg tablet 1 mg PO DAILY Rx Instructions: 1 tab by mouth daily nitroglycerin 0.4 mg tablet, sublingual 0.4 mg sublingual Q5M PRN (Reason: chest pain) Qty: 20 3RF Rx Instructions: do not exceed 3 doses per episode azelastine 137 mcg (0.1 %) spray,non-aerosol 137 mcg intranasal DAILY fluticasone propionate 50 mcg/actuation spray,suspension 50 mcg intranasal DAILY mirtazapine 7.5 mg tablet 7.5 mg PO DAILY varenicline tartrate [Chantix Starting Month Box] 0.5 mg (11)- 1 mg (42) tablets,dose pack See Rx Instructions PO PER PKG DIR Qty: 53 0RF Rx Instructions: PO PER PKG DIR montelukast 10 mg tablet 10 mg PO DAILY lisinopril 20 mg tablet 20 mg PO DAILY levothyroxine 75 mcg tablet 75 mcg PO DAILY escitalopram oxalate 20 mg tablet 20 mg PO DAILY oxybutynin chloride 10 mg tablet extended release 24hr 10 mg PO DAILY magnesium 200 mg tablet 200 mg PO DAILY Qty: 7 0RF Discharge Orders: Discharge ED (Routine); Ordered 08/05/25 Ordered By: Chuy Stewart Referrals: Tarik Orourke MD [Physician, Cardiology] Betzaida Ruiz PA [Primary Care Provider, Physicians Moving Picture Producer] Patient Instructions: Bradycardia (ED), Pacemaker (DC), Patient Portal & [place] Instructions Print Language: Japanese Coding Level of Care Code ED Wound Care Physician for Umair Mathis
--- NOTE | 2025-08-05 12:09 | ECG_ITS ---
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 Measurements Intervals [place] Rate: 43 P: 81 MN: 207 QRS: 14 QRSD: 90 T: 85 QT: 523 QTc: 447 Interpretive Statements SINUS BRADYCARDIA POSSIBLE RIGHT VENTRICULAR CONDUCTION DELAY [RSR (QR) IN V1/V2] MODERATE T-WAVE ABNORMALITY, CONSIDER ANTERIOR ISCHEMIA [-0.1+ mV T-WAVE IN V3/V4] Compared to ECG 08/05/2025 09:53:42 T-wave abnormality now present Possible ischemia now present Sinus arrhythmia no longer present Electronically Signed On 08-05-2025 23:52:26 DRAFTING LAYOUT WORKER by Laquita Perez M.D. [id number]
[2025-08-05 12:20] LABS: Troponin 5 2HR 6.73 ng/L (0-10)
[2025-08-05 12:25] LABS: Troponin 5 2HR Delta -0.27 ABS# (0-10)
--- NOTE | 2025-08-05 14:37 | DCPLANNER ---
Message sent to cardiology-
== END 2025-08-05 15:05 | disposition home or self-care (01) ==
PROVIDERS: Emergency Provider Student in an Organized Health Care Education/Training Program; PCP Physician Assistant
DX: R00.1 Bradycardia, unspecified (principal); F17.210 Nicotine dependence, cigarettes, uncomplicated; J44.9 Chronic obstructive pulmonary disease, unspecified; I10 Essential (primary) hypertension
CPT/HCPCS: 36415; 71045; 80053; 83735; 83880; 84439; 84443; 84484; 85025; 85610; 85730; 93005; 99285

== ENCOUNTER → 2025-08-12 10:30 | Outpatient (BNVA) | payer MEDICARE, MEDICAID, SELFPAY | PROVIDERS: PCP Physician Assistant; Visit Provider Internal Medicine Cardiovascular Disease | DX: R00.1 Bradycardia, unspecified (principal); I10 Essential (primary) hypertension; Z98.61 Coronary angioplasty status; F17.210 Nicotine dependence, cigarettes, uncomplicated | CPT/HCPCS: 99214 ==

== ENCOUNTER → 2025-08-12 14:36 | Outpatient (BNVA) | payer MEDICARE, MEDICAID, SELFPAY | PROVIDERS: PCP Physician Assistant; Visit Provider Internal Medicine Cardiovascular Disease | DX: R00.1 Bradycardia, unspecified (principal); I49.1 Atrial premature depolarization; I49.3 Ventricular premature depolarization; I47.10 Supraventricular tachycardia, unspecified | CPT/HCPCS: 93242 ==

== ENCOUNTER 2025-08-19 07:06 | Outpatient (CLI) | payer MEDICARE, MEDICAID, SELFPAY ==
[2025-08-19 07:20] VITALS: BMI 19.7
--- NOTE | 2025-08-19 07:21 | ECG_ITS ---
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 Interpretive Statements Dobutamine stress test Stress data: The patient was exercised by Quinn protocol. Baseline heart rate was 41beats per minute. Baseline blood pressure was 159/82 millimeters of mercury. Maximal predicted heart rate was 161 beats per minute. Maximum heart rate achieved was 205 which was 127% of the maximum predicted heart rate. Maximum blood pressure was 181/61 millimeters of mercury. Total infusion time was 16 minutes and 16 seconds. The patient complained of shortness of breath during the stress test, which then resolved at the end of the test. ELECTROCARDIOGRAM: BASELINE: Showed sinus bradycardia, normal axis, no significant ST-T changes at the baseline noted. [] EXERCISE: At the peak infusion, [] patient appears to have developed SVT vs sinus tachycardia. ST depressions seen in the inferior leads and anterior leads with borderline elevation in aVL. RECOVERY: During the recovery period, heart rate dropped appropriately. No significant ST-T changes in the recovery suggestive of ischemia noted. [] CONCLUSION: 1. Heart rate response was appropriate. Patient had sinus tachycardia vs SVT during dobutamine infusion. 2. Blood pressure response was appropriate 3. Symptoms not suggestive of ischemia. 4. Electrocardiogram portion of the stress test was abnormal 5. Nuclear scan will be documented separately. Electronically Signed On 08-25-2025 11:16:13 PRINCIPAL MECHANICAL ENGINEER by Mo Camara M.D. [id number]
--- NOTE | 2025-08-19 07:22 | NMCV_ITS ---
NM miguel perf SPECT r/s* [id number] Nano Olea Age: 59 Gender: F : 1965 Exam Date: 08/19/2025 08:50 Ordering Phys: Jose De Jesus Girard MD ([email or web address]) Technologist: CHRISTOPHER Gross Exam Location: [facility] Indications: CP STRESS TEST Please see separate stress test report in [facility] for full findings IMAGE PROTOCOL Rest/Stress 1 Dobutamine Day Radiopharmaceutical Dose (mCi) Administration Site Administered by Rest: Tc-99m 10.5 IV CHRISTOPHER Gross Sestamibi Stress:Tc-99m 31.5 IV Mary An, MENTAL RETARDATION AIDE Sestamibi Rest: 19-Aug-2025 60 Discovery 630 Stress: 19-Aug-2025 30 Discovery 630 0.4mg Lexiscan. Images obtained in supine and prone position. SPECT RESULTS Technical Quality: Good Raw Data Analysis: Normal Image Corrections: No attenuation or motion correction applied Summed Stress Score: 3 Summed Rest Score: 5 Summed Difference Score: 0 PERFUSION FINDINGS Small area of fixed perfusion defect seen in apical and apical inferior wall. 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 No significant ischemia seen. FUNCTIONAL RESULTS (calculated via Gated SPECT) Stress Image LV EF (%): 76 Stress EDV (mL):84 TID: 1.21 Stress ESV (mL):20 FUNCTIONAL FINDINGS: There is normal left ventricular systolic function. IMPRESSIONS 1. 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 No evidence of ischemia. 2. LV systolic function is normal Mo Camara MD (Electronically Signed) Final Date: 22 August 2025 11:13 S
[2025-08-19] MEDS: DOBUTtamine 200 MG in sodium chloride 0.9% 34 ML 7.82 MG IV (10:28)
[2025-08-19 11:05] VITALS: BP 152/68; PULSE 66
--- NOTE | 2025-08-19 11:12 | PC.NURSE ---
Dobutamine stress test note Baseline heart rate before stress test 3 sinus lawrence. BP 159/82. Dr. Camara notified of resting heart rate in 30's. Patient does not take beta blockers at home. Dobutamine infusion titrated per protocol , see titrations on NOV. Pt had significant ST depression globally. Patient denied chest pain and reported felt like her heart was beating out of chest. During stress test patient went into brief SVT rate of 202, responded to vagal maneuvers. So brief it was not captured manually on EKG. Pt HR continue to lower without requirement of medication. Dr. Camara rn progressive care unit sonography technologist notified of event and reviewed EKG. No new orders received. Discharge BP 152/68 HR 66 sinus with occasional PVC.
== END 2025-08-19 07:07 | disposition home or self-care (01) ==
LOC: CDL 07:08
PROVIDERS: PCP Physician Assistant; Visit Provider Internal Medicine Cardiovascular Disease
DX: R00.1 Bradycardia, unspecified (principal); R07.9 Chest pain, unspecified; R00.0 Tachycardia, unspecified
CPT/HCPCS: 36415; 78452; 93017; 96374; A9500; J1250; J7050

== ENCOUNTER → 2025-09-04 08:28 | Outpatient (BNVA) | payer MEDICARE, MEDICAID, SELFPAY | PROVIDERS: PCP Physician Assistant; Visit Provider Internal Medicine | DX: R91.1 Solitary pulmonary nodule (principal); R00.1 Bradycardia, unspecified; R59.0 Localized enlarged lymph nodes; F17.210 Nicotine dependence, cigarettes, uncomplicated | CPT/HCPCS: 99214; Q3014 ==

== ENCOUNTER → 2025-09-09 08:35 | Outpatient (BNVA) | payer MEDICARE, MEDICAID, SELFPAY | PROVIDERS: PCP Physician Assistant; Visit Provider Internal Medicine Cardiovascular Disease | DX: R00.1 Bradycardia, unspecified (principal); I10 Essential (primary) hypertension; Z98.61 Coronary angioplasty status; F17.210 Nicotine dependence, cigarettes, uncomplicated | CPT/HCPCS: 99214 ==

== ENCOUNTER → 2025-09-17 13:28 | Outpatient (BNVA) | payer MEDICARE, MEDICAID, SELFPAY | PROVIDERS: PCP Physician Assistant; Referring Provider Physician Assistant; Visit Provider Specialist | DX: G56.03 Carpal tunnel syndrome, bilateral upper limbs (principal) | CPT/HCPCS: 95911 ==